=== PATIENT | female | born 1945 | race Caucasian/White ===

== ENCOUNTER → 2016-08-27 | Outpatient (CLI) | payer MEDICARE, MEDICAID | LOC: OD 10:26 | PROVIDERS: ATTEND Specialist | DX: C22.0 Liver cell carcinoma (principal); C25.0 Malignant neoplasm of head of pancreas; R78.0 Finding of alcohol in blood; R97.8 Other abnormal tumor markers | CPT/HCPCS: 36415; 82105; 82378; 86301 ==

== ENCOUNTER 2016-09-04 07:43 | Inpatient (IN) | payer MEDICARE, MEDICAID ==
[2016-09-04 08:15] LABS: ABSOLUTE LYMPHOCYTES (AUTO) 0.4 10^3/uL (0.5-4.7); ABSOLUTE MONOCYTES (AUTO) 0.3 10^3/uL (0.1-1.4); ABSOLUTE NEUT (AUTO) 4.2 10^3/uL (1.7-8.2); BASOPHILS % (AUTO) 0.4 % (0-2); HEMATOCRIT 38.5 % (36.0-47.0); HEMOGLOBIN 12.9 g/dL (12.0-15.5); HGB HCT DIFFERENCE 0.2; LYMPHOCYTES % (AUTO) 7.4 % (13-45); MEAN CORPUSCULAR HEMOGLOBIN 30.1 pg (27.0-33.4); MEAN CORPUSCULAR HGB CONC 33.5 g/dL (32.0-36.0); MEAN CORPUSCULAR VOLUME 90 fl (80-97); MONOCYTES % (AUTO) 5.7 % (3-13); RED BLOOD COUNT 4.29 10^6/uL (3.72-5.28); RED CELL DISTRIBUTION WIDTH 12.1 % (11.5-14.0); SEGMENTED NEUTROPHILS % (AUTO) 86.5 % (42-78); VENOUS BLOOD BASE EXCESS 4.3 mmol/L; VENOUS BLOOD HCO3 29.8 mmol/L (20-32); VENOUS BLOOD PCO2 47.7 mmHg (35-63); VENOUS BLOOD PH 7.41 (7.30-7.42); WHITE BLOOD COUNT 4.8 10^3/uL (4.0-10.5)
[2016-09-04 08:26] LABS: PROTHROMBIN TIME 12.3 SEC (11.4-15.4)
--- NOTE | 2016-09-04 08:31 | ER Document Report ---
ED Respiratory Problem - General Time seen by provider: 08:30 Mode of Arrival: Medic Information source: Patient TRAVEL OUTSIDE OF THE [place] IN LAST 30 DAYS: No - HPI At home treatment: Oxygen EMS treatments: Oxygen Associated symptoms: Congestion, Cough, Fever <ABBIE HOLT - Last Filed: 09/04/16 09:50> <SEBASTIANMISAEL - Last Filed: 09/04/16 14:48> - General Chief Complaint: Shortness Of Breath Stated Complaint: SHORTNESS OF BREATH Notes: Patient is a 70 year old female with a history of COPD, presenting to the emergency department with complaints of difficulty breathing, nausea, and cough. Patient has had some weakness and has felt short of breath. Patient has been feeling ill for the past 2 days. Patient has been short of breath for 3 hours this morning when she woke up. Patient has recently been exposed to the flu by a family member. Patient states she did receive the flu vaccination this year. Patient is on 2 L of O2 at home. Patient sees Dr. Padron as her PCP. Patient states she had a fever on Saturday and this morning she had a chills and a fever. Patient also complains of some slight chest pain that she describes as "stabbing." Patient states the pain only lasted for a few minutes and it was happening when she was breathing hard. Patient is at 93 oxygen saturation with O2 at time of exam. (ABBIE HOLT) - Related Data Allergies/Adverse Reactions: moxifloxacin [From Avelox] Allergy (Verified 09/04/16 08:20) Past Medical History - General Information source: Patient - Social History Smoking Status: Former Smoker - quit in January Cigarette use (# per day): No Chew tobacco use (# tins/day): No Frequency of alcohol use: None Drug Abuse: None Family History: None - Past Medical History Cardiac Medical History: Reports: Hx Hypercholesterolemia, Hx Hypertension Pulmonary Medical History: Reports: Hx COPD Past Surgical History: Reports: Hx Hysterectomy - Immunizations History of Influenza Vaccine for 04/2016 - 09/2016 Season: Yes <ABBIE HOLT - Last Filed: 09/04/16 09:50> Review of Systems - Review of Systems Constitutional: No symptoms reported EENT: No symptoms reported Cardiovascular: See HPI, Chest pain Respiratory: See HPI, Cough, Short of breath, Sputum, Wheezing Gastrointestinal: No symptoms reported Genitourinary: No symptoms reported Female Genitourinary: No symptoms reported Musculoskeletal: No symptoms reported Skin: No symptoms reported Hematologic/Lymphatic: No symptoms reported Neurological/Psychological: No symptoms reported -: Yes All other systems reviewed and negative <ABBEI HOLT - Last Filed: 09/04/16 09:50> Physical Exam - Vital signs Interpretation: Tachycardic - upon arrival - General General appearance: Appears well, Alert In distress: Mild - HEENT Head: Normocephalic, Atraumatic Eyes: Normal Pupils: PERRL Mucous membranes: Moist - Respiratory Respiratory status: Other - slight dyspnea Chest status: Nontender Breath sounds: Nonproductive cough, Rhonchi, Wheezing Chest palpation: Normal - Cardiovascular Rhythm: Regular Heart sounds: Normal auscultation Murmur: No - Abdominal Inspection: Normal Distension: No distension Bowel sounds: Normal Tenderness: Nontender Organomegaly: No organomegaly - Back Back: Normal, Nontender - Extremities General upper extremity: Normal inspection, Normal ROM, Normal strength General lower extremity: Normal inspection, Normal ROM, Normal strength - Neurological Neuro grossly intact: Yes Cognition: Normal Orientation: AAOx4 Mandy Coma Scale Eye Opening: Spontaneous Mineral Coma Scale Verbal: Oriented Mineral Coma Scale Motor: Obeys Commands Mineral Coma Scale Total: 15 Speech: Normal - Psychological Associated symptoms: Normal affect, Normal mood - Skin Skin Temperature: Warm Skin Moisture: Dry Skin Color: Normal <ABBIE HOLT - Last Filed: 09/04/16 09:50> <MISAEL CORTES - Last Filed: 09/04/16 14:48> - Vital signs Vitals: Resp Pulse Ox 22 H 92 09/04/16 07:54 09/04/16 07:54 (ABBIE HOLT) (MISAEL CORTES) Course - Laboratory Result Diagrams: 09/04/16 08:00 09/04/16 08:00 <ABBIE HOLT - Last Filed: 09/04/16 09:50> - Laboratory Result Diagrams: 09/04/16 08:00 09/04/16 08:00 - Diagnostic Test Radiology reviewed: Image reviewed, Reports reviewed - Chest x-ray shows COPD with interstitial prominence consistent with a viral illness - EKG Interpretation by Ca EKG shows normal: Sinus rhythm, [place], Intervals, QRS Complexes, ST-T Waves Rate: Tachycardia - 108 - Consults Dr. Kimbrough Time consulted: 14:45 Consulted provider: will come to ER <MISAEL CROTES - Last Filed: 09/04/16 14:48> - Re-evaluation Re-evalutation: 09/04/16 13:28 The patient states that really does feel much better. Her wheezes are considerably improved. I'm concerned that her oxygen saturation drops to 88 and 89% with a good waveform despite being on 3 L of oxygen. She states she normally is able to walk around the house at home without using oxygen. We will try to ambulate her with nasal O2 and see how her pulse oximetry does. 09/04/16 14:18 Patient's pulse ox stayed in the 86% range on oxygen while walking. She seemed to tolerate it well. I checked a d-dimer and it is elevated at 1.53 The patient's lungs were much clearer after the breathing treatments, and she reports it was easier to breathe. Despite this, her pulse oximetry readings are lower now than when she first came in. We will get a CTA chest to exclude pulmonary embolus as a contributing cause to her hypoxemia. 09/04/16 14:34 The CTA chest does not show any pulmonary emboli. It shows only COPD and atherosclerosis. There are no infiltrates. 09/04/16 14:42 At this time the patient is oxygenating much better at 93%, however she is a little tachypneic and does have some suprasternal retracting. I am concerned about discharging her home due to her age, the clinical picture today, the underlying disease, and she does not have nebulizers at home. (MISAEL CORTES) - Vital Signs Vital signs: Temp Pulse Resp BP Pulse Ox 98.5 F 110 H 40 H 125/76 90 L 09/04/16 11:52 09/04/16 08:16 09/04/16 13:01 09/04/16 13:01 09/04/16 13:01 (ABBIE HOLT) (MISAEL CORTES) - Laboratory Laboratory results interpreted by me: 09/04/16 09/04/16 09/04/16 08:00 08:00 08:00 Plt Count 131 L Seg Neutrophils % 86.5 H Lymphocytes % 7.4 L Absolute Lymphocytes 0.4 L D-Dimer Sodium 136.7 L Potassium 2.9 L* Chloride 97 L Carbon Dioxide 33 H Glucose 139 H Creatine Kinase 301 H Total Protein 5.9 L Albumin 3.2 L Urine Protein Urine Ketones Urine Blood Ur Leukocyte Esterase 09/04/16 09/04/16 08:00 09:15 Plt Count Seg Neutrophils % Lymphocytes % Absolute Lymphocytes D-Dimer 1.53 H Sodium Potassium Chloride Carbon Dioxide Glucose Creatine Kinase Total Protein Albumin Urine Protein 30 H Urine Ketones 20 H Urine Blood SMALL H Ur Leukocyte Esterase SMALL H (ABBIE HOLT) (MISAEL CORTES) Discharge <ABBIE HLOT - Last Filed: 09/04/16 09:50> - Discharge Admitting Provider: Hospitalist Unit Admitted: [facility] <MISAEL CORTES - Last Filed: 09/04/16 14:48> - Discharge Clinical Impression: Acute exacerbation of chronic obstructive pulmonary disease (COPD), Hypoxemia, Hypokalemia Condition: Stable Disposition: ADMITTED INPATIENT Referrals: DANILO UNDERWOOD, [facility] [Primary Care Provider] - Follow up as needed Scribe Attestation: 09/04/16 14:48 I personally performed the services described in the documentation, reviewed and edited the documentation which was dictated to the scribe in my presence, and it accurately records my words and actions. (MISAEL CORTES) Scribe Documentation - Scribe Written by Scribmelissa:: Abbie Holt 09/04/16 9:40 acting as scribe for :: Sebastian <ABBIE HOLT - Last Filed: 09/04/16 09:50>
[2016-09-04] MEDS ORDERED: PREDNISONE 20 MG TABLET PO ONE (08:33)
[2016-09-04] MEDS ORDERED: IPRATROPIUM/ALBUTEROL 0.5-2.5 MG/3 ML AMPUL NEB ONE ×2 (08:33→14:43)
[2016-09-04 08:34] LABS: ALANINE AMINOTRANSFERASE 29 U/L (9-52); ALBUMIN 3.2 g/dL (3.5-5.0); ALKALINE PHOSPHATASE 50 U/L (38-126); ANION GAP 7 (5-19); ASPARTATE AMINO TRANSFERASE 33 U/L (14-36); BILIRUBIN,TOTAL 0.4 mg/dL (0.2-1.3); BLOOD UREA NITROGEN 12 mg/dL (7-20); CALCIUM 8.6 mg/dL (8.4-10.2); CARBON DIOXIDE 33 mmol/L (22-30); CHLORIDE 97 mmol/L (98-107); CREATININE RESULT 0.63 mg/dL (0.52-1.25); GLUCOSE 139 mg/dL (75-110); SODIUM 136.7 mmol/L (137-145); TOTAL PROTEIN 5.9 g/dL (6.3-8.2)
[2016-09-04 08:36] LABS: POTASSIUM 2.9 mmol/L (3.6-5.0)
[2016-09-04] MEDS ORDERED: POTASSIUM CHLORIDE 10 MEQ TABLET.SA PO ONE (08:37)
[2016-09-04 08:38] LABS: ADD ON TESTING BLD IN LAB ACKNOWLEDGE
[2016-09-04 08:49] LABS: CREATINE KINASE 301 U/L (30-135)
[2016-09-04 09:03] LABS: TROPONIN I < 0.012 ng/mL
[2016-09-04 09:41] LABS: APPEARANCE,URINE SLIGHTLY-CLOUDY; BILIRUBIN,URINE NEGATIVE (NEGATIVE); GLUCOSE, URINE NEGATIVE (NEGATIVE); KETONES,URINE 20 mg/dL (NEGATIVE); LEUKOCYTE ESTERASE,URINE SMALL (NEGATIVE); NITRITE,URINE NEGATIVE (NEGATIVE); PROTEIN,URINE 30 mg/dL (NEGATIVE); URINE SPECIFIC GRAVITY 1.013; UROBILINOGEN,URINE NEGATIVE mg/dL (<2.0)
[2016-09-04] MEDS ORDERED: ALBUTEROL SULFATE 0.083% NEB 2.5 MG/3 ML AMPUL NEB ONE ×2 (10:29→11:09)
--- NOTE | 2016-09-04 12:02 | EKG REPORT ---
SEVERITY:- OTHERWISE NORMAL ECG - ARTIFACTS SINUS TACHYCARDIA : Confirmed by: Jami Schwartz MD 04-Sep-2016 12:00:33
[2016-09-04] MEDS ORDERED: ALBUTEROL SULFATE 0.083% NEB 2.5 MG/3 ML AMPUL NEB PRN (16:44)
[2016-09-04] MEDS ORDERED: HYDRALAZINE HCL INJ/PF 20 MG/1 ML SDV IV PRN (16:45)
[2016-09-04] MEDS ORDERED: ACETAMINOPHEN 325 MG TABLET PO PRN (16:46)
--- NOTE | 2016-09-04 16:55 | PDOC H&P ---
History of Present Illness Admission Date/PCP: 09/04/16 15:11 Dr. Loyd Padron Patient complains of: Shortness of breath History of Present Illness: MELODY HAIRSTON is a 70 year old female with past medical history of COPD that presents with three-day history of shortness of breath, 1 day history of feeling feverish. Patient has chronic home oxygen dependent secondary to COPD. She is followed by Dr. Bullard pulmonary medicine. She has been exposed to influenza by her granddaughter, but has tested influenza negative in the emergency department. CTA of the chest in the emergency department showed findings consistent with COPD but no acute process. Past Medical History Cardiac Medical History: Reports: Hyperlipidema, Hypertension Denies: Myocardial Infarction Pulmonary Medical History: Reports: Chronic Obstructive Pulmonary Disease (COPD) Musculoskeltal Medical History: Denies: Gout Past Surgical History Past Surgical History: Reports: Hysterectomy Social History Information Source: Patient Smoking Status: Former Smoker - quit in January Hx Recreational Drug Use: No Hx Prescription Drug Abuse: No - Advance Directive Resuscitation Status: Full Code Family History Family History: None Parental Family History Reviewed: Yes Children Family History Reviewed: Yes Sibling(s) Family History Reviewed.: Yes Medication/Allergy Home Medications: Cephalexin Monohydrate [Keflex 250 Mg Capsule] 250 mg PO QID #20 capsule Home Oxygen 3 l IH CONTINUOUS PRN #99 10/11/15 Allergies/Adverse Reactions: moxifloxacin [From Avelox] Allergy (Verified 09/04/16 08:20) Review of Systems Constitutional: PRESENT: fever(s). ABSENT: chills, headache(s), weight gain, weight loss Eyes: ABSENT: visual disturbances Ears: ABSENT: hearing changes Cardiovascular: ABSENT: chest pain, dyspnea on exertion, edema, orthropnea, palpitations Respiratory: PRESENT: cough, dyspnea. ABSENT: hemoptysis Gastrointestinal: ABSENT: abdominal pain, constipation, diarrhea, hematemesis, hematochezia, nausea, vomiting Genitourinary: ABSENT: dysuria, hematuria Musculoskeletal: ABSENT: joint swelling Integumentary: ABSENT: rash, wounds Neurological: ABSENT: abnormal gait, abnormal speech, confusion, dizziness, focal weakness, syncope Psychiatric: ABSENT: anxiety, depression, homidical ideation, suicidal ideation Endocrine: ABSENT: cold intolerance, heat intolerance, polydipsia, polyuria Hematologic/Lymphatic: ABSENT: easy bleeding, easy bruising Physical Exam Vital Signs: Temp Pulse Resp BP Pulse Ox 98.5 F 110 H 40 H 125/76 90 L 09/04/16 11:52 09/04/16 08:16 09/04/16 13:01 09/04/16 13:01 09/04/16 13:01 PHYSICAL EXAM: GENERAL: Appears well, no acute distress HEENT: Normocephalic, no scleral icterus, conjunctiva clear, EOEM intact, PERRLA , moist mucous membranes NECK: trachea midline, no thyromegally RESPIRATORY: Bilateral wheezes, diminished air excursion CARDIAC: Regular rate and rhythm, no murmur/abhijeet/rub ABDOMEN: Soft, no distension, no tenderness, no guarding, normal bowel sounds, negative West sign RECTAL: deferred : deferred EXTREMITIES: No edema, cyanosis, clubbing MUSCULOSKELETAL: No joint swelling or deformity VASCULAR: normal peripheral pulses NEUROLOGIC: Alert, oriented to person/place/time, normal speech, cranial nerves grossly intact, 5/5 strength in all extremities, tactile sensation intact in all extremities SKIN: No rash, no wounds, no worrisome skin lesions PSYCHIATRIC: Normal mood, normal affect Results Laboratory Results: Labs- All tests 24 hr 09/04/16 09/04/16 09/04/16 08:00 08:00 08:00 WBC 4.8 RBC 4.29 Hgb 12.9 Hct 38.5 MCV 90 MCH 30.1 MCHC 33.5 RDW 12.1 Plt Count 131 L Seg Neutrophils % 86.5 H Lymphocytes % 7.4 L Monocytes % 5.7 Eosinophils % 0.0 Basophils % 0.4 Absolute Neutrophils 4.2 Absolute Lymphocytes 0.4 L Absolute Monocytes 0.3 Absolute Eosinophils 0.0 Absolute Basophils 0.0 PT 12.3 INR 0.89 D-Dimer VBG pH VBG pCO2 VBG HCO3 VBG Base Excess Sodium 136.7 L Potassium 2.9 L* Chloride 97 L Carbon Dioxide 33 H Anion Gap 7 BUN 12 Creatinine 0.63 Est GFR ( Amer) > 60 Est GFR (Non-Af Amer) > 60 Glucose 139 H Lactic Acid Calcium 8.6 Total Bilirubin 0.4 Direct Bilirubin 0.0 AST 33 ALT 29 Alkaline Phosphatase 50 Creatine Kinase CK-MB (CK-2) Troponin I Total Protein 5.9 L Albumin 3.2 L Urine Color Urine Appearance Urine pH Ur Specific [place] Urine Protein Urine Glucose (UA) Urine Ketones Urine Blood Urine Nitrite Urine Bilirubin Urine Urobilinogen Ur Leukocyte Esterase Urine WBC (Auto) Urine RBC (Auto) U Hyaline Cast (Auto) Urine Bacteria (Auto) Squamous Epi Cells Auto U Non-Squamous Epis Auto Urine Mucus (Auto) Urine Ascorbic Acid Influenza A (Rapid) Influenza B (Rapid) 09/04/16 09/04/16 09/04/16 08:00 08:00 08:00 WBC RBC Hgb Hct MCV MCH MCHC RDW Plt Count Seg Neutrophils % Lymphocytes % Monocytes % Eosinophils % Basophils % Absolute Neutrophils Absolute Lymphocytes Absolute Monocytes Absolute Eosinophils Absolute Basophils PT INR D-Dimer VBG pH 7.41 VBG pCO2 47.7 VBG HCO3 29.8 VBG Base Excess 4.3 Sodium Potassium Chloride Carbon Dioxide Anion Gap BUN Creatinine Est GFR ( Amer) Est GFR (Non-Af Amer) Glucose Lactic Acid 0.9 Calcium Total Bilirubin Direct Bilirubin AST ALT Alkaline Phosphatase Creatine Kinase 301 H CK-MB (CK-2) Troponin I Total Protein Albumin Urine Color Urine Appearance Urine pH Ur Specific [place] Urine Protein Urine Glucose (UA) Urine Ketones Urine Blood Urine Nitrite Urine Bilirubin Urine Urobilinogen Ur Leukocyte Esterase Urine WBC (Auto) Urine RBC (Auto) U Hyaline Cast (Auto) Urine Bacteria (Auto) Squamous Epi Cells Auto U Non-Squamous Epis Auto Urine Mucus (Auto) Urine Ascorbic Acid Influenza A (Rapid) Influenza B (Rapid) 09/04/16 09/04/16 09/04/16 08:00 08:00 09:15 WBC RBC Hgb Hct MCV MCH MCHC RDW Plt Count Seg Neutrophils % Lymphocytes % Monocytes % Eosinophils % Basophils % Absolute Neutrophils Absolute Lymphocytes Absolute Monocytes Absolute Eosinophils Absolute Basophils PT INR D-Dimer 1.53 H VBG pH VBG pCO2 VBG HCO3 VBG Base Excess Sodium Potassium Chloride Carbon Dioxide Anion Gap BUN Creatinine Est GFR ( Amer) Est GFR (Non-Af Amer) Glucose Lactic Acid Calcium Total Bilirubin Direct Bilirubin AST ALT Alkaline Phosphatase Creatine Kinase CK-MB (CK-2) 1.90 Troponin I < 0.012 Total Protein Albumin Urine Color YELLOW Urine Appearance SLIGHTLY-CLOUDY Urine pH 6.0 Ur Specific [place] 1.013 Urine Protein 30 H Urine Glucose (UA) NEGATIVE Urine Ketones 20 H Urine Blood SMALL H Urine Nitrite NEGATIVE Urine Bilirubin NEGATIVE Urine Urobilinogen NEGATIVE Ur Leukocyte Esterase SMALL H Urine WBC (Auto) 4 Urine RBC (Auto) 7 U Hyaline Cast (Auto) 13 Urine Bacteria (Auto) 1+ Squamous Epi Cells Auto 6 U Non-Squamous Epis Auto 1 Urine Mucus (Auto) RARE Urine Ascorbic Acid NEGATIVE Influenza A (Rapid) Influenza B (Rapid) 09/04/16 09:40 WBC RBC Hgb Hct MCV MCH MCHC RDW Plt Count Seg Neutrophils % Lymphocytes % Monocytes % Eosinophils % Basophils % Absolute Neutrophils Absolute Lymphocytes Absolute Monocytes Absolute Eosinophils Absolute Basophils PT INR D-Dimer VBG pH VBG pCO2 VBG HCO3 VBG Base Excess Sodium Potassium Chloride Carbon Dioxide Anion Gap BUN Creatinine Est GFR ( Amer) Est GFR (Non-Af Amer) Glucose Lactic Acid Calcium Total Bilirubin Direct Bilirubin AST ALT Alkaline Phosphatase Creatine Kinase CK-MB (CK-2) Troponin I Total Protein Albumin Urine Color Urine Appearance Urine pH Ur Specific [place] Urine Protein Urine Glucose (UA) Urine Ketones Urine Blood Urine Nitrite Urine Bilirubin Urine Urobilinogen Ur Leukocyte Esterase Urine WBC (Auto) Urine RBC (Auto) U Hyaline Cast (Auto) Urine Bacteria (Auto) Squamous Epi Cells Auto U Non-Squamous Epis Auto Urine Mucus (Auto) Urine Ascorbic Acid Influenza A (Rapid) NEGATIVE Influenza B (Rapid) NEGATIVE Impressions: Chest X-Ray 09/04/16 07:45 IMPRESSION: Possible COPD. Prominence of the interstitium which could be secondary to underlying a viral illness, edema, and/or chronic scarring. No focal infiltrates Chest/Abdomen CTA 09/04/16 13:52 IMPRESSION: 1. No evidence of pulmonary embolus or acute thoracic abnormality. 2. Findings include COPD, atherosclerosis. Assessment & Plan - Diagnosis (1) Acute on chronic respiratory failure with hypoxemia Is this a current diagnosis for this admission?: YesPlan: Patient is chronic home oxygen dependent on 2 L nasal cannula. Continue oxygen supplementation. (2) Acute exacerbation of chronic obstructive pulmonary disease (COPD) Is this a current diagnosis for this admission?: YesPlan: Continue prednisone initiated in the emergency department. Start doxycycline 100 mg twice daily. Scheduled and when necessary nebulizer treatments. (3) Hypertension Is this a current diagnosis for this admission?: YesPlan: Discontinue hydrochlorothiazide secondary to hypokalemia. When necessary IV hydralazine. (4) Hypokalemia Is this a current diagnosis for this admission?: YesPlan: Replace potassium. Discontinue hydrochlorothiazide. - Time Time Spent: Greater than 70 Minutes Anticipated discharge: Home Within: within 48 hours
[2016-09-04] MEDS ORDERED: ENOXAPARIN SODIUM INJ 40 MG/0.4 ML DISP.SYRIN SUBCUT ONE (19:00)
[2016-09-04] MEDS: DOXYCYCLINE HYCLATE 100 MG TABLET PO SCH (19:30)
[2016-09-04] MEDS: GUAIFENESIN 600 MG TABLET.SA PO SCH (19:30)
[2016-09-04] MEDS: ALBUTEROL SULFATE 0.083% NEB 2.5 MG/3 ML AMPUL NEB SCH (20:13)
[2016-09-04 20:56] LABS: VENOUS BLOOD PCO2 52.3 mmHg (35-63); VENOUS BLOOD PH 7.42 (7.30-7.42)
[2016-09-04 21:13] LABS: ANION GAP 6 (5-19); BLOOD UREA NITROGEN 22 mg/dL (7-20); CALCIUM 9.4 mg/dL (8.4-10.2); CARBON DIOXIDE 32 mmol/L (22-30); CHLORIDE 95 mmol/L (98-107); CREATINE KINASE 410 U/L (30-135); CREATININE RESULT 0.71 mg/dL (0.52-1.25); GLUCOSE 134 mg/dL (75-110); POTASSIUM 3.7 mmol/L (3.6-5.0); SODIUM 133.3 mmol/L (137-145)
[2016-09-04 21:22] LABS: CREATINE KINASE MB 3.17 ng/mL (<4.55)
[2016-09-04 21:24] LABS: TROPONIN I < 0.012 ng/mL
[2016-09-04] MEDS ORDERED: POTASSIUM CHLORIDE 20 MEQ/15 ML UDCUP PO ONE (22:00)
--- NOTE | 2016-09-04 22:03 | EKG REPORT ---
SEVERITY:- ABNORMAL ECG - SINUS TACHYCARDIA MULTIPLE VENTRICULAR PREMATURE COMPLEXES : Confirmed by: Jami Schwartz MD 04-Sep-2016 22:01:59
[2016-09-05 01:19] LABS: VENOUS BLOOD BASE EXCESS 1.8 mmol/L; VENOUS BLOOD HCO3 27.7 mmol/L (20-32); VENOUS BLOOD PCO2 48.5 mmHg (35-63); VENOUS BLOOD PH 7.37 (7.30-7.42)
[2016-09-05 02:02] LABS: FREE T3 2.53 pg/mL (2.77-5.27)
[2016-09-05 03:19] LABS: HEMATOCRIT 36.4 % (36.0-47.0); HEMOGLOBIN 12.2 g/dL (12.0-15.5); HGB HCT DIFFERENCE 0.2; MEAN CORPUSCULAR HEMOGLOBIN 30.1 pg (27.0-33.4); MEAN CORPUSCULAR HGB CONC 33.5 g/dL (32.0-36.0); MEAN CORPUSCULAR VOLUME 90 fl (80-97); RED BLOOD COUNT 4.06 10^6/uL (3.72-5.28); RED CELL DISTRIBUTION WIDTH 12.2 % (11.5-14.0); WHITE BLOOD COUNT 5.6 10^3/uL (4.0-10.5)
[2016-09-05 03:31] LABS: ANION GAP 6 (5-19); BLOOD UREA NITROGEN 18 mg/dL (7-20); CALCIUM 9.4 mg/dL (8.4-10.2); CARBON DIOXIDE 33 mmol/L (22-30); CHLORIDE 97 mmol/L (98-107); CREATININE RESULT 0.65 mg/dL (0.52-1.25); Direct HDL 56 mg/dL (>40); GLUCOSE 99 mg/dL (75-110); POTASSIUM 3.8 mmol/L (3.6-5.0); SODIUM 135.9 mmol/L (137-145); TRIGLYCERIDES 100 mg/dL (<150)
[2016-09-05 03:42] LABS: DIRECT LDL 63 mg/dL (<100)
[2016-09-05] MEDS: DOXYCYCLINE HYCLATE 100 MG TABLET PO SCH ×2 (05:57→17:35)
[2016-09-05] MEDS: GUAIFENESIN 600 MG TABLET.SA PO SCH ×2 (05:58→17:35)
[2016-09-05] MEDS ORDERED: ENOXAPARIN SODIUM INJ 40 MG/0.4 ML DISP.SYRIN SUBCUT SCH (08:00)
[2016-09-05] MEDS: ALBUTEROL SULFATE 0.083% NEB 2.5 MG/3 ML AMPUL NEB SCH ×3 (08:12→20:25)
[2016-09-05] MEDS ORDERED: PREDNISONE 20 MG TABLET PO SCH (10:00)
[2016-09-05] MEDS ORDERED: HYDROCODONE BIT/HOMATROPINE SYRUP 5 ML UDCUP PO PRN (15:14)
[2016-09-05] MEDS ORDERED: METHYLPREDNISOLONE INJ 40 MG/1 ML SDV IV SCH (15:15)
--- NOTE | 2016-09-05 15:22 | PDOC PROGRESS REPORT ---
Subjective Progress Note for:: 09/05/16 Subjective:: Patient's cough and shortness of breath has gotten worse and chest today. She was also noted to have brief run of SVT overnight. She has had multiple PVCs on telemetry monitoring. Patient denies fever, chills, headache, new focal weakness, chest pain, abdominal pain, nausea, vomiting, diarrhea, constipation. Physical Exam Vital Signs: Temp Pulse Resp BP Pulse Ox 98.3 F 93 21 H 124/65 92 09/05/16 11:48 09/05/16 14:18 09/05/16 14:18 09/05/16 11:48 09/05/16 11:48 Intake & Output 09/04/16 09/05/16 09/06/16 06:59 06:59 06:59 Intake Total 823 1516 Output Total 500 Balance 823 1016 Weight 57.2 kg GENERAL: No acute distress, tachypnea, pursed lip breathing HEENT: Conjunctiva clear, nonicteric, moist mucous membranes, no JVD, midline trachea RESPIRATORY: Bilateral inspiratory/expiratory wheezes, diminished air excursion CARDIAC: Regular rate and rhythm, no murmurs/gallops/rubs ABDOMEN: Soft, nondistended, nontender, positive bowel sounds, no rebound, no guarding EXTREMETIES: No edema, cyanosis, clubbing NEUROLOGIC: Alert, oriented to person/place/time, CN's grossly intact, no focal deficits SKIN: No rash, wounds PSYCH: Normal mood, normal affect Results Laboratory Results: 09/05/16 02:55 09/05/16 02:55 09/04/16 09/04/16 09/04/16 20:41 20:41 20:41 WBC RBC Hgb Hct MCV MCH MCHC RDW Plt Count VBG pH 7.42 VBG pCO2 52.3 VBG HCO3 33.0 H VBG Base Excess 7.0 Sodium 133.3 L Potassium 3.7 Chloride 95 L Carbon Dioxide 32 H Anion Gap 6 BUN 22 H Creatinine 0.71 Est GFR ( Amer) > 60 Est GFR (Non-Af Amer) > 60 Glucose 134 H Calcium 9.4 Magnesium 2.0 Triglycerides Cholesterol LDL Cholesterol Direct VLDL Cholesterol HDL Cholesterol TSH 0.28 L Free T4 Free T3 pg/mL 09/04/16 09/05/16 09/05/16 20:41 01:10 02:55 WBC 5.6 RBC 4.06 Hgb 12.2 Hct 36.4 MCV 90 MCH 30.1 MCHC 33.5 RDW 12.2 Plt Count 121 L VBG pH 7.37 VBG pCO2 48.5 VBG HCO3 27.7 VBG Base Excess 1.8 Sodium Potassium Chloride Carbon Dioxide Anion Gap BUN Creatinine Est GFR ( Amer) Est GFR (Non-Af Amer) Glucose Calcium Magnesium Triglycerides Cholesterol LDL Cholesterol Direct VLDL Cholesterol HDL Cholesterol TSH Free T4 1.08 Free T3 pg/mL 2.53 L 09/05/16 02:55 WBC RBC Hgb Hct MCV MCH MCHC RDW Plt Count VBG pH VBG pCO2 VBG HCO3 VBG Base Excess Sodium 135.9 L Potassium 3.8 Chloride 97 L Carbon Dioxide 33 H Anion Gap 6 BUN 18 Creatinine 0.65 Est GFR ( Amer) > 60 Est GFR (Non-Af Amer) > 60 Glucose 99 Calcium 9.4 Magnesium Triglycerides 100 Cholesterol 155.30 LDL Cholesterol Direct 63 VLDL Cholesterol 20.0 HDL Cholesterol 56 TSH Free T4 Free T3 pg/mL 09/04/16 09/04/16 09/05/16 20:41 20:41 02:55 Creatine Kinase 410 H CK-MB (CK-2) 3.17 Troponin I < 0.012 < 0.012 Impressions: Chest X-Ray 09/04/16 07:45 IMPRESSION: Possible COPD. Prominence of the interstitium which could be secondary to underlying a viral illness, edema, and/or chronic scarring. No focal infiltrates Chest/Abdomen CTA 09/04/16 13:52 IMPRESSION: 1. No evidence of pulmonary embolus or acute thoracic abnormality. 2. Findings include COPD, atherosclerosis. Assessment & Plan - Diagnosis (1) Acute on chronic respiratory failure with hypoxemia Is this a current diagnosis for this admission?: YesPlan: Patient is chronic home oxygen dependent on 2 L nasal cannula. Continue oxygen supplementation. (2) Acute exacerbation of chronic obstructive pulmonary disease (COPD) Is this a current diagnosis for this admission?: YesPlan: Discontinue prednisone. Start IV Solu-Medrol 80 mg every 8 hours. Continue nebulizer treatments. Resume home dose of Symbicort. Continue doxycycline. (3) Hypertension Is this a current diagnosis for this admission?: YesPlan: Discontinued hydrochlorothiazide secondary to hypokalemia. When necessary IV hydralazine. Consider adding beta kristin for this as well as frequent PVCs once bronchospasm improved. (4) Hypokalemia Is this a current diagnosis for this admission?: YesPlan: Replace potassium. Discontinued hydrochlorothiazide. (5) Urinary tract infection Is this a current diagnosis for this admission?: YesPlan: Continue doxycycline pending further culture. - Time Time Spent with patient: 35 or more minutes
[2016-09-05] MEDS: HYDROCODONE BIT/HOMATROPINE 5-1.5 MG TABLET PO PRN (17:34)
[2016-09-05] MEDS: ATORVASTATIN CALCIUM 10 MG TABLET PO SCH (22:28)
[2016-09-05] MEDS: METHYLPREDNISOLONE INJ 125 MG/2 ML SDV IV SCH (22:29)
[2016-09-05] MEDS: BUDESONIDE/FORMOTEROL 160-4.5 MCG 60 PUFF/6 GM MDI IH SCH (22:29)
[2016-09-06] MEDS: HYDROCODONE BIT/HOMATROPINE 5-1.5 MG TABLET PO PRN ×2 (04:30→13:57)
[2016-09-06 06:06] LABS: ABSOLUTE LYMPHOCYTES (AUTO) 0.6 10^3/uL (0.5-4.7); ABSOLUTE MONOCYTES (AUTO) 0.2 10^3/uL (0.1-1.4); ABSOLUTE NEUT (AUTO) 2.9 10^3/uL (1.7-8.2); BASOPHILS % (AUTO) 0.1 % (0-2); HEMATOCRIT 39.9 % (36.0-47.0); HEMOGLOBIN 13.4 g/dL (12.0-15.5); HGB HCT DIFFERENCE 0.3; LYMPHOCYTES % (AUTO) 15.9 % (13-45); MEAN CORPUSCULAR HEMOGLOBIN 30.3 pg (27.0-33.4); MEAN CORPUSCULAR HGB CONC 33.7 g/dL (32.0-36.0); MEAN CORPUSCULAR VOLUME 90 fl (80-97); MONOCYTES % (AUTO) 4.8 % (3-13); RED BLOOD COUNT 4.44 10^6/uL (3.72-5.28); SEGMENTED NEUTROPHILS % (AUTO) 79.2 % (42-78); WHITE BLOOD COUNT 3.7 10^3/uL (4.0-10.5)
[2016-09-06 06:22] LABS: ANION GAP 11 (5-19); BLOOD UREA NITROGEN 19 mg/dL (7-20); CALCIUM 9.9 mg/dL (8.4-10.2); CARBON DIOXIDE 32 mmol/L (22-30); CHLORIDE 97 mmol/L (98-107); CREATININE RESULT 0.57 mg/dL (0.52-1.25); GLUCOSE 125 mg/dL (75-110); POTASSIUM 4.5 mmol/L (3.6-5.0); SODIUM 140.2 mmol/L (137-145)
[2016-09-06] MEDS: DOXYCYCLINE HYCLATE 100 MG TABLET PO SCH ×2 (06:41→17:17)
[2016-09-06] MEDS: GUAIFENESIN 600 MG TABLET.SA PO SCH ×2 (06:41→17:16)
[2016-09-06] MEDS: METHYLPREDNISOLONE INJ 125 MG/2 ML SDV IV SCH ×3 (06:43→21:48)
[2016-09-06] MEDS: ALBUTEROL SULFATE 0.083% NEB 2.5 MG/3 ML AMPUL NEB SCH ×3 (08:31→20:07)
[2016-09-06] MEDS: BUDESONIDE/FORMOTEROL 160-4.5 MCG 60 PUFF/6 GM MDI IH SCH ×2 (09:44→21:48)
[2016-09-06] MEDS ORDERED: (PENDING PHARMACY ID) (Lovastatin [Lovastatin] 40 MG) PO SCH (10:00)
[2016-09-06] MEDS ORDERED: ONDANSETRON HCL INJ/PF 4 MG/2 ML SDV ONE (18:14)
--- NOTE | 2016-09-06 18:32 | PDOC PROGRESS REPORT ---
Subjective Progress Note for:: 09/06/16 Subjective:: Shortness of breath has improved markedly since yesterday. Patient's respiratory status is still not back to baseline. Patient denies fever, chills, headache, new focal weakness, chest pain, abdominal pain, nausea, vomiting, diarrhea, constipation. Physical Exam Vital Signs: Temp Pulse Resp BP Pulse Ox 97.6 F 95 19 147/72 H 92 09/06/16 15:32 09/06/16 15:32 09/06/16 15:32 09/06/16 15:32 09/06/16 15:32 Intake & Output 09/05/16 09/06/16 09/07/16 06:59 06:59 06:59 Intake Total 895 391 Output Total 750 0 Balance 145 391 Weight 56.9 kg GENERAL: No acute distress HEENT: Conjunctiva clear, nonicteric, moist mucous membranes, no JVD, midline trachea RESPIRATORY: Bilateral inspiratory/expiratory wheezes, good air excursion CARDIAC: Regular rate and rhythm, no murmurs/gallops/rubs ABDOMEN: Soft, nondistended, nontender, positive bowel sounds, no rebound, no guarding EXTREMETIES: No edema, cyanosis, clubbing NEUROLOGIC: Alert, oriented to person/place/time, CN's grossly intact, no focal deficits SKIN: No rash, wounds PSYCH: Normal mood, normal affect Results Laboratory Results: 09/06/16 05:34 09/06/16 05:34 09/06/16 09/06/16 05:34 05:34 WBC 3.7 L RBC 4.44 Hgb 13.4 Hct 39.9 MCV 90 MCH 30.3 MCHC 33.7 RDW 12.0 Plt Count 144 L Seg Neutrophils % 79.2 H Lymphocytes % 15.9 Monocytes % 4.8 Eosinophils % 0.0 Basophils % 0.1 Absolute Neutrophils 2.9 Absolute Lymphocytes 0.6 Absolute Monocytes 0.2 Absolute Eosinophils 0.0 Absolute Basophils 0.0 Sodium 140.2 Potassium 4.5 Chloride 97 L Carbon Dioxide 32 H Anion Gap 11 BUN 19 Creatinine 0.57 Est GFR ( Amer) > 60 Est GFR (Non-Af Amer) > 60 Glucose 125 H Calcium 9.9 Impressions: Chest X-Ray 09/04/16 07:45 IMPRESSION: Possible COPD. Prominence of the interstitium which could be secondary to underlying a viral illness, edema, and/or chronic scarring. No focal infiltrates Chest/Abdomen CTA 09/04/16 13:52 IMPRESSION: 1. No evidence of pulmonary embolus or acute thoracic abnormality. 2. Findings include COPD, atherosclerosis. Assessment & Plan - Diagnosis (1) Acute on chronic respiratory failure with hypoxemia Is this a current diagnosis for this admission?: YesPlan: Patient is chronic home oxygen dependent on 2 L nasal cannula. Continue oxygen supplementation. (2) Acute exacerbation of chronic obstructive pulmonary disease (COPD) Is this a current diagnosis for this admission?: YesPlan: Continue IV Solu-Medrol 80 mg every 8 hours. Continue nebulizer treatments, Symbicort. Continue doxycycline. (3) Hypertension Is this a current diagnosis for this admission?: YesPlan: Discontinued hydrochlorothiazide secondary to hypokalemia. When necessary IV hydralazine. Consider adding beta kristin for this as well as frequent PVCs once bronchospasm improved. (4) Hypokalemia Is this a current diagnosis for this admission?: YesPlan: Corrected. Discontinued hydrochlorothiazide. (5) Urinary tract infection Is this a current diagnosis for this admission?: YesPlan: Continue doxycycline pending further culture. - Time Time Spent with patient: 25-34 minutes
[2016-09-06] MEDS: ATORVASTATIN CALCIUM 10 MG TABLET PO SCH (21:47)
[2016-09-07] MEDS: DOXYCYCLINE HYCLATE 100 MG TABLET PO SCH ×2 (06:31→17:07)
[2016-09-07] MEDS: GUAIFENESIN 600 MG TABLET.SA PO SCH ×2 (06:31→17:07)
[2016-09-07] MEDS: METHYLPREDNISOLONE INJ 125 MG/2 ML SDV IV SCH ×3 (06:32→22:45)
[2016-09-07] MEDS: ALBUTEROL SULFATE 0.083% NEB 2.5 MG/3 ML AMPUL NEB SCH ×3 (08:14→20:17)
[2016-09-07] MEDS: BUDESONIDE/FORMOTEROL 160-4.5 MCG 60 PUFF/6 GM MDI IH SCH ×2 (09:57→22:14)
[2016-09-07] MEDS ORDERED: VANCOMYCIN HCL INJ 1000 MG VIAL IV ONE (19:01)
--- NOTE | 2016-09-07 19:01 | PDOC PROGRESS REPORT ---
Subjective Progress Note for:: 09/07/16 Subjective:: Patient has a dry cough productive of minimal clear phlegm. She is on doxycycline for a COPD exacerbation. The laboratory has reported one out of 4 blood cultures of 09/04/2016 positive for Staphylococcus capitis. The patient denies fevers sweats or chills. She denies dizziness or lightheadedness. Physical Exam Vital Signs: Temp Pulse Resp BP Pulse Ox 98.2 F 110 H 18 161/91 H 92 09/07/16 15:26 09/07/16 15:26 09/07/16 15:26 09/07/16 15:26 09/07/16 15:26 Intake & Output 09/06/16 09/07/16 09/08/16 06:59 06:59 06:59 Intake Total 895 1313 1387 Output Total 750 500 Balance 986 754 4179 Weight 56.9 kg 57.6 kg Additional comments: GENERAL: No acute distress HEENT: Conjunctiva clear, nonicteric, moist mucous membranes, no JVD, midline trachea RESPIRATORY: Bilateral inspiratory/expiratory wheezes, good air excursion CARDIAC: Regular rate and rhythm, no murmurs/gallops/rubs ABDOMEN: Soft, nondistended, nontender, positive bowel sounds, no rebound, no guarding EXTREMETIES: No edema, cyanosis, clubbing NEUROLOGIC: Alert, oriented to person/place/time, CN's grossly intact, no focal deficits SKIN: No rash, wounds PSYCH: Normal mood, normal affect Results Laboratory Results: 09/06/16 05:34 09/06/16 05:34 Impressions: Chest X-Ray 09/04/16 07:45 IMPRESSION: Possible COPD. Prominence of the interstitium which could be secondary to underlying a viral illness, edema, and/or chronic scarring. No focal infiltrates Chest/Abdomen CTA 09/04/16 13:52 IMPRESSION: 1. No evidence of pulmonary embolus or acute thoracic abnormality. 2. Findings include COPD, atherosclerosis. Assessment & Plan - Diagnosis (1) Bacteremia due to coagulase-negative Staphylococcus Plan: One out of 4 blood cultures of 09/04/2016 were positive for Staphylococcus capitis. It is sensitive to doxycycline vancomycin and levofloxacin. She is allergic to moxifloxacin. We will continue the doxycycline and add intravenous vancomycin, pharmacy to dose (2) Acute exacerbation of chronic obstructive pulmonary disease (COPD) Is this a current diagnosis for this admission?: YesPlan: Continue her current medications except to wean Solu-Medrol to 40 mg every 12 hours. (3) Acute on chronic respiratory failure with hypoxemia Is this a current diagnosis for this admission?: YesPlan: The patient is on chronic home O2 supplementation at 2 L per nasal cannula. Will continue same (4) Hypertension Is this a current diagnosis for this admission?: Yes (5) Hypokalemia Is this a current diagnosis for this admission?: YesPlan: Check follow-up BMP. (6) Urinary tract infection Is this a current diagnosis for this admission?: YesPlan: Await culture results. - Time Time Spent with patient: 25-34 minutes
[2016-09-07] MEDS: BENZONATATE 100 MG CAPSULE PO PRN (20:19)
[2016-09-07] MEDS: ATORVASTATIN CALCIUM 10 MG TABLET PO SCH (22:14)
[2016-09-07] MEDS: METHYLPREDNISOLONE INJ 40 MG/1 ML SDV IV SCH (22:45)
[2016-09-08] MEDS: GUAIFENESIN 600 MG TABLET.SA PO SCH ×2 (05:58→17:58)
[2016-09-08] MEDS: BENZONATATE 100 MG CAPSULE PO PRN ×2 (05:58→17:59)
[2016-09-08] MEDS: DOXYCYCLINE HYCLATE 100 MG TABLET PO SCH ×2 (05:58→17:58)
[2016-09-08] MEDS: METHYLPREDNISOLONE INJ 125 MG/2 ML SDV IV SCH (06:00)
[2016-09-08 07:25] LABS: ABSOLUTE LYMPHOCYTES (AUTO) 1.3 10^3/uL (0.5-4.7); ABSOLUTE MONOCYTES (AUTO) 0.5 10^3/uL (0.1-1.4); ABSOLUTE NEUT (AUTO) 4.7 10^3/uL (1.7-8.2); BASOPHILS % (AUTO) 0.1 % (0-2); HEMATOCRIT 40.7 % (36.0-47.0); HEMOGLOBIN 13.7 g/dL (12.0-15.5); HGB HCT DIFFERENCE 0.4; LYMPHOCYTES % (AUTO) 20.3 % (13-45); MEAN CORPUSCULAR HEMOGLOBIN 30.2 pg (27.0-33.4); MEAN CORPUSCULAR HGB CONC 33.7 g/dL (32.0-36.0); MEAN CORPUSCULAR VOLUME 90 fl (80-97); MONOCYTES % (AUTO) 7.5 % (3-13); RED BLOOD COUNT 4.54 10^6/uL (3.72-5.28); RED CELL DISTRIBUTION WIDTH 12.4 % (11.5-14.0); SEGMENTED NEUTROPHILS % (AUTO) 72.1 % (42-78); WHITE BLOOD COUNT 6.5 10^3/uL (4.0-10.5)
[2016-09-08 07:44] LABS: ANION GAP 14 (5-19); BLOOD UREA NITROGEN 20 mg/dL (7-20); CALCIUM 9.7 mg/dL (8.4-10.2); CARBON DIOXIDE 30 mmol/L (22-30); CHLORIDE 95 mmol/L (98-107); CREATININE RESULT 0.54 mg/dL (0.52-1.25); GLUCOSE 128 mg/dL (75-110); POTASSIUM 4.2 mmol/L (3.6-5.0); SODIUM 138.9 mmol/L (137-145)
[2016-09-08] MEDS: ALBUTEROL SULFATE 0.083% NEB 2.5 MG/3 ML AMPUL NEB SCH ×3 (08:18→20:25)
[2016-09-08] MEDS: BUDESONIDE/FORMOTEROL 160-4.5 MCG 60 PUFF/6 GM MDI IH SCH ×2 (09:15→21:55)
[2016-09-08] MEDS: METHYLPREDNISOLONE INJ 40 MG/1 ML SDV IV SCH ×2 (09:15→21:54)
[2016-09-08] MEDS ORDERED: HYDROCHLOROTHIAZIDE 12.5 MG CAPSULE PO ONE (11:30)
--- NOTE | 2016-09-08 14:25 | PDOC PROGRESS REPORT ---
Subjective Progress Note for:: 09/08/16 Subjective:: Her cough is slightly better. It is less dry, more loose and effective. However the cough is still frequent and she is wheezy. Overall, she feels improved. One of 4 blood cultures grew Staphylococcus capitis. The other 3 have remained negative. This will be considered a contaminant and the ordered vancomycin has been discontinued. Physical Exam Vital Signs: Temp Pulse Resp BP Pulse Ox 97.8 F 84 16 145/70 H 96 09/08/16 11:29 09/08/16 14:05 09/08/16 14:05 09/08/16 11:29 09/08/16 14:05 Intake & Output 09/07/16 09/08/16 09/09/16 06:59 06:59 06:59 Intake Total 1313 1897 Output Total 500 600 Balance 813 1297 Weight 57.6 kg 56.2 kg Additional comments: GENERAL: No acute distress HEENT: Conjunctiva clear, nonicteric, moist mucous membranes, no JVD, midline trachea RESPIRATORY: Bilateral expiratory wheezes, good air movement CARDIAC: Regular rate and rhythm, no murmurs/gallops/rubs ABDOMEN: Soft, nondistended, nontender, positive bowel sounds, no rebound, no guarding EXTREMETIES: No edema, cyanosis, clubbing NEUROLOGIC: Alert, oriented to person/place/time, CN's grossly intact, no focal deficits SKIN: No rash, wounds PSYCH: Normal mood, normal affect Results Laboratory Results: 09/08/16 06:14 09/08/16 06:14 09/08/16 09/08/16 06:14 06:14 WBC 6.5 RBC 4.54 Hgb 13.7 Hct 40.7 MCV 90 MCH 30.2 MCHC 33.7 RDW 12.4 Plt Count 187 Seg Neutrophils % 72.1 Lymphocytes % 20.3 Monocytes % 7.5 Eosinophils % 0.0 Basophils % 0.1 Absolute Neutrophils 4.7 Absolute Lymphocytes 1.3 Absolute Monocytes 0.5 Absolute Eosinophils 0.0 Absolute Basophils 0.0 Sodium 138.9 Potassium 4.2 Chloride 95 L Carbon Dioxide 30 Anion Gap 14 BUN 20 Creatinine 0.54 Est GFR ( Amer) > 60 Est GFR (Non-Af Amer) > 60 Glucose 128 H Calcium 9.7 Impressions: Chest X-Ray 09/04/16 07:45 IMPRESSION: Possible COPD. Prominence of the interstitium which could be secondary to underlying a viral illness, edema, and/or chronic scarring. No focal infiltrates Chest/Abdomen CTA 09/04/16 13:52 IMPRESSION: 1. No evidence of pulmonary embolus or acute thoracic abnormality. 2. Findings include COPD, atherosclerosis. Assessment & Plan - Diagnosis (1) Acute exacerbation of chronic obstructive pulmonary disease (COPD) Is this a current diagnosis for this admission?: YesPlan: Continue oral doxycycline, Solu-Medrol, guaifenesin, and inhaled bronchodilators. (2) Acute on chronic respiratory failure with hypoxemia Is this a current diagnosis for this admission?: YesPlan: The patient uses home O2 at 2 L per nasal cannula. We'll continue same. (3) Hypertension Is this a current diagnosis for this admission?: YesPlan: Under satisfactory control. Will resume her hydrochlorothiazide at her request. (4) Hypokalemia Is this a current diagnosis for this admission?: YesPlan: Resolved. We will monitor now that she is back on her HCTZ. (5) Urinary tract infection Is this a current diagnosis for this admission?: YesPlan: Urine culture of 09/04/2016 shows 50-60,000 colonies of Escherichia coli, sensitive to the current doxycycline. - Time Time Spent with patient: 15-24 minutes
[2016-09-08] MEDS: ONDANSETRON HCL INJ/PF 4 MG/2 ML SDV IV PRN (18:14)
[2016-09-08] MEDS: ATORVASTATIN CALCIUM 10 MG TABLET PO SCH (21:54)
[2016-09-09] MEDS: DOXYCYCLINE HYCLATE 100 MG TABLET PO SCH (06:41)
[2016-09-09] MEDS: GUAIFENESIN 600 MG TABLET.SA PO SCH (06:41)
[2016-09-09] MEDS: BENZONATATE 100 MG CAPSULE PO PRN (06:43)
[2016-09-09] MEDS: ONDANSETRON HCL INJ/PF 4 MG/2 ML SDV IV PRN (07:47)
[2016-09-09] MEDS: ALBUTEROL SULFATE 0.083% NEB 2.5 MG/3 ML AMPUL NEB SCH (08:14)
[2016-09-09] MEDS ORDERED: HYDROCHLOROTHIAZIDE 12.5 MG CAPSULE PO SCH (10:00)
[2016-09-09] MEDS: METHYLPREDNISOLONE INJ 40 MG/1 ML SDV IV SCH (10:40)
[2016-09-09] MEDS: BUDESONIDE/FORMOTEROL 160-4.5 MCG 60 PUFF/6 GM MDI IH SCH (10:41)
--- NOTE | 2016-09-09 10:45 | PDOC DISCHARGE SUMMARY ---
General - Admit/Disc Date/PCP Admission Date/Primary Care Provider: 09/05/16 17:17 BEATA KELLY-Rylee Discharge Date: 09/09/16 - Discharge Diagnosis (1) Acute exacerbation of chronic obstructive pulmonary disease (COPD) Is this a current diagnosis for this admission?: YesSummary: This morning the patient states she is breathing much better and her cough is much more effective. She has generally improved with hospital Rx. Will discharge home on 1 more week of doxycycline, a Medrol Dosepak, and albuterol MDI. (2) Acute on chronic respiratory failure with hypoxemia Is this a current diagnosis for this admission?: YesSummary: The patient uses home O2 at 2 L per nasal cannula. We'll continue same. (3) Hypertension Is this a current diagnosis for this admission?: YesSummary: Blood pressure has been in good control. Continue current medications. (4) Hypokalemia Is this a current diagnosis for this admission?: YesSummary: Hypokalemia was corrected. (5) Urinary tract infection Is this a current diagnosis for this admission?: YesSummary: Urine culture of 09/04/2016 shows 50-60,000 colonies of Escherichia coli, sensitive to the current doxycycline. - Additional Information Resuscitation Status: Full Code Home Medications: Hydrochlorothiazide 12.5 mg PO DAILY 09/04/16 Lovastatin 40 mg PO DAILY 09/04/16 Albuterol Sulfate [Ventolin Hfa] 2 puff IH Q4HP PRN #0 hfa.aer.ad 09/09/16 Budesonide/Formoterol Fumarate [Symbicort HFA 160-4.5 mcg Inhaler 6 gm] 2 puff IH Q12 #0 inhaler 09/09/16 Doxycycline Hyclate [Vibramycin 100 mg Tablet] 100 mg PO Q12A #14 tablet Methylprednisolone [Medrol Dosepack (4 mg/Tab) 21 Tab/Dosepak] 4 mg PO ASDIR PRN #21 tab.ds.pk 09/09/16 Ondansetron HCl [Zofran 4 mg Tablet] 1 tab PO Q4H PRN #10 tablet 09/09/16 History of Present Illness Patient complains of: Cough, wheeze, SOB History of Present Illness: MELODY HAIRSTON is a 70 year old female with past medical history of COPD that presents with three-day history of shortness of breath, 1 day history of feeling feverish. Patient has chronic home oxygen dependent secondary to COPD. She is followed by Dr. Bullard pulmonary medicine. She has been exposed to influenza by her granddaughter, but has tested influenza negative in the emergency department. CTA of the chest in the emergency department showed findings consistent with COPD but no acute process. Hospital Course Hospital Course: The patient has severe oxygen-dependent COPD. She was admitted with an acute exacerbation. The chest CT was negative for an acute process. The patient should have received oral doxycycline, intravenous corticosteroid, nebulized bronchodilator, and supplemental oxygen. She steadily improved. Her air movement improved. Her cough became more effective. She felt much better at the time of discharge, though she still had a persistent wheezy cough and some nausea. She felt ready for discharge and will follow-up with either her primary care physician or her high court justice within 1-2 weeks. Physical Exam Vital Signs: Temp Pulse Resp BP Pulse Ox 97.8 F 89 14 139/75 H 96 09/09/16 07:28 09/09/16 08:14 09/09/16 08:14 09/09/16 07:28 09/09/16 08:14 Intake & Output 09/08/16 09/09/16 09/10/16 06:59 06:59 06:59 Intake Total 1897 1728 Output Total 600 900 Balance 1297 828 Weight 56.2 kg 56.4 kg Additional comments: GENERAL: No acute distress HEENT: Conjunctiva clear, nonicteric, moist mucous membranes, no JVD, midline trachea RESPIRATORY: Bilateral expiratory wheezes, good air movement, dry wheezy cough CARDIAC: Regular rate and rhythm, no murmurs/gallops/rubs ABDOMEN: Soft, nondistended, nontender, positive bowel sounds, no rebound, no guarding EXTREMETIES: No edema, cyanosis, clubbing NEUROLOGIC: Alert, oriented to person/place/time, CN's grossly intact, no focal deficits SKIN: No rash, wounds PSYCH: Normal mood, normal affect Results Laboratory Results: 09/08/16 06:14 09/08/16 06:14 Impressions: Chest X-Ray 09/04/16 07:45 IMPRESSION: Possible COPD. Prominence of the interstitium which could be secondary to underlying a viral illness, edema, and/or chronic scarring. No focal infiltrates Chest/Abdomen CTA 09/04/16 13:52 IMPRESSION: 1. No evidence of pulmonary embolus or acute thoracic abnormality. 2. Findings include COPD, atherosclerosis. Qualifiers PATEINT BEING DISCHARGED WITH ANY OF THE FOLLOWING DIAGNOSIS?: No
[2016-09-09 11:38] VITALS: BP 116/67
== END 2016-09-09 12:30 | disposition home or self-care (01) | DRG 190 ==
LOC: ER 07:43 → UNDOADMOB 15:11 → EH 15:11 → INTOOBSV 15:11 → 3W 16:46 → EH 17:43 → 3W 17:43 → OBSVTOIN 09-05 17:17
PROVIDERS: ADMIT Internal Medicine; ATTEND Internal Medicine
PROC: 3E0F73Z Introduction of Anti-inflammatory into Respiratory Tract, Via Natural or Artificial Opening (ICD-10-PCS; principal; 2016-09-04)
DX: J44.1 Chronic obstructive pulmonary disease with (acute) exacerbation (principal); J96.21 Acute and chronic respiratory failure with hypoxia; N39.0 Urinary tract infection, site not specified; I10 Essential (primary) hypertension; E87.6 Hypokalemia; E78.5 Hyperlipidemia, unspecified; B96.20 Unspecified Escherichia coli [E. coli] as the cause of diseases classified elsewhere; Z99.81 Dependence on supplemental oxygen; Z79.899 Other long term (current) drug therapy; Z90.710 Acquired absence of both cervix and uterus; Z87.891 Personal history of nicotine dependence; Z88.3 Allergy status to other anti-infective agents; Z79.2 Long term (current) use of antibiotics
CPT/HCPCS: 36415; 71020; 71275; 80048; 80053; 80061; 81001; 82550; 82553; 82803; 83605; 83735; 84439; 84443; 84481; 84484; 85025; 85027; 85379; 85610; 87040; 87077; 87086; 87088; 87186; 87804; 93005; 93010; 94640; 99285; G0378; J1650; J2405; J2920; J2930; J3490; J7512; J7620

== ENCOUNTER 2016-09-28 09:26 | Day surgery (SDC) | payer MEDICARE, MEDICAID ==
--- NOTE | 2016-09-14 10:16 | HISTORY AND PHYSICAL E ---
History and Physical NAME: MELODY HAIRSTON : 1945 AGE: 70Y ADMITTED: 09/28/2016 ROOM: CHIEF COMPLAINT: The patient was referred to us by Dr. Bullard. HISTORY OF PRESENT ILLNESS: She does have a question of a gastric mass versus liver mass. She does have constipation. The patient has post-anesthesia complaining of nausea/vomiting. PAST SURGICAL HISTORY: 1. She did have polyps in her oropharynx. 2. Partial hysterectomy. 3. Cataract. MEDICATIONS: The patient takes: 1. Nexium. 2. ProAir. 3. Spiriva. 4. Symbicort. 5. Hydrochlorothiazide. SOCIAL HISTORY: She quit smoking. Single. She does not smoke. She does not drink. FAMILY HISTORY: Father with accident. Mom with cerebral hemorrhage. REVIEW OF SYSTEMS: CARDIAC: Hypertension, high cholesterol. RESPIRATORY: Emphysema, COPD. GASTROINTESTINAL: Question liver mass and gastric mass. MUSCULOSKELETAL: Arthritis. PHYSICAL EXAMINATION: GENERAL: A 70-year-old female patient of Dr. Bullard. VITAL SIGNS: Blood pressure 140/90, pulse 80, respirations 18, temperature is 98. HEAD, EYES, EARS, NOSE, THROAT: Normal. NECK: Supple. CARDIOVASCULAR: Normal. LUNGS: Clear. ABDOMEN: Soft. NEUROLOGIC: Negative. CONCLUSION: Question gastric mass, question liver mass. PLAN: Upper scope. DICTATING PHYSICIAN: HÉCTOR LEE M.D. [id number] PHY#: [id number] ID: [id number] JOB#: [id number] ACCT: [id number] cc:SEN BULLARD M.D., MAHMOUD M.D. >
[2016-09-28] MEDS ORDERED: FENTANYL CITRATE INJ/PF 100 MCG/2 ML AMPUL ONE (10:08)
[2016-09-28] MEDS ORDERED: GLYCOPYRROLATE INJ 0.4 MG/2 ML VIAL ONE (10:08)
[2016-09-28] MEDS ORDERED: ONDANSETRON HCL INJ/PF 4 MG/2 ML SDV ONE (10:08)
[2016-09-28] MEDS ORDERED: NALOXONE HCL INJ/PF 0.4 MG/1 ML SDV ONE (10:08)
[2016-09-28] MEDS ORDERED: PROMETHAZINE HCL INJ 25 MG/1 ML VIAL ONE (10:08)
[2016-09-28] MEDS ORDERED: MIDAZOLAM 2 MG/2 ML INJ ONE (10:08)
[2016-09-28] MEDS ORDERED: EPINEPHRINE INJ 1 MG/10 ML DISP.SYRIN ONE (10:09)
[2016-09-28] MEDS ORDERED: FLUMAZENIL INJ 0.5 MG/5 ML VIAL IV ONE (10:09)
[2016-09-28 11:27] VITALS: BP 120/64
[2016-09-28] MEDS ORDERED: ACETAMINOPHEN 325 MG TABLET ONE (11:46)
[2016-09-28 11:52] LABS: ABSOLUTE BASOPHILS # (AUTO) 0.1 10^3/uL (0.0-0.2); ABSOLUTE EOSINOPHILS # (AUTO) 0.1 10^3/uL (0.0-0.6); ABSOLUTE LYMPHOCYTES (AUTO) 1.4 10^3/uL (0.5-4.7); ABSOLUTE MONOCYTES (AUTO) 0.3 10^3/uL (0.1-1.4); ABSOLUTE NEUT (AUTO) 4.1 10^3/uL (1.7-8.2); BASOPHILS % (AUTO) 0.9 % (0-2); EOSINOPHILS % (AUTO) 1.5 % (0-6); HEMATOCRIT 36.3 % (36.0-47.0); HEMOGLOBIN 11.9 g/dL (12.0-15.5); HGB HCT DIFFERENCE -0.6; MEAN CORPUSCULAR HEMOGLOBIN 29.7 pg (27.0-33.4); MEAN CORPUSCULAR HGB CONC 32.9 g/dL (32.0-36.0); MEAN CORPUSCULAR VOLUME 91 fl (80-97); MONOCYTES % (AUTO) 5.3 % (3-13); RED CELL DISTRIBUTION WIDTH 12.5 % (11.5-14.0); SEGMENTED NEUTROPHILS % (AUTO) 69.3 % (42-78); WHITE BLOOD COUNT 5.9 10^3/uL (4.0-10.5)
[2016-09-28 12:12] LABS: ALANINE AMINOTRANSFERASE 24 U/L (9-52); ALBUMIN 3.8 g/dL (3.5-5.0); ALKALINE PHOSPHATASE 61 U/L (38-126); ANION GAP 12 (5-19); ASPARTATE AMINO TRANSFERASE 19 U/L (14-36); BILIRUBIN,TOTAL 0.4 mg/dL (0.2-1.3); BLOOD UREA NITROGEN 16 mg/dL (7-20); CALCIUM 9.4 mg/dL (8.4-10.2); CARBON DIOXIDE 32 mmol/L (22-30); CHLORIDE 99 mmol/L (98-107); CREATININE RESULT 0.57 mg/dL (0.52-1.25); GLUCOSE 95 mg/dL (75-110); POTASSIUM 3.5 mmol/L (3.6-5.0); SODIUM 142.9 mmol/L (137-145); TOTAL PROTEIN 6.6 g/dL (6.3-8.2)
[2016-09-28 12:42] LABS: CARCINOEMBRYONIC ANTIGEN 0.5 ng/mL (<3.0)
--- NOTE | 2016-09-28 12:53 | DISCHARGE SUMMARY E ---
Discharge Summary NAME: MELODY HAIRSTON : 1945 AGE: 70Y ADMITTED: 09/28/2016 DISCHARGED: 09/28/2016 HISTORY: Patient, a 70-year-old female, presented with a possible mass, liver versus stomach. She does have history of COPD, hypertension, , reflux and nausea. SURGICAL HISTORY: Total abdominal hysterectomy. PROCEDURE: Underwent upper scope: Shows no ulcers; no malignancy. She has no mass in her stomach on endoscopy. She does have a hiatus hernia, mild esophagitis, gastritis, duodenitis. DISCHARGE PLAN: 1. CA-99, CEA, alpha-fetoprotein, Chem profile. 2. Consider colonoscopy. I thank you. DICTATING PHYSICIAN: HÉCTOR LEE M.D. [id number] PHY#: [id number] ID: [id number] JOB#: [id number] ACCT: [id number] cc:SEN MISHRA M.D., MAHMOUD M.D. >
--- NOTE | 2016-09-28 13:18 | OPERATIVE REPORT E ---
Operative Report NAME: MELODY HAIRSTON : 1945 AGE: 70Y DATE OF SURGERY: 09/28/2016 ROOM: PREOPERATIVE DIAGNOSES: 1. Mild reflux. 2. Question gastric mass. POSTOPERATIVE DIAGNOSIS: 1. Mild gastritis. 2. Small hiatus hernia. 3. Mild esophagitis. 4. Mild duodenitis. PROCEDURE: 1. Esophagoscopy 2. Gastroscopy. 3. Duodenoscopy. SURGEON: HÉCTOR LEE M.D. ANESTHESIA: Versed 2 and fentanyl 50. TISSUE REMOVED OR ALTERED: Gastric biopsy for H. pylori. DESCRIPTION OF PROCEDURE: Baby scope passed under guided vision. No difficulties. Esophagoscopy junction at 35 cm. Distal hiatus hernia 1-2 cm, sliding hiatus hernia with mild esophagitis. No stricture. No ulcers. Gastroscopy: Mild gastritis. Biopsy obtained for H. pylori. Duodenoscopy: Duodenum shows no ulcers. Mild duodenitis. Descending duodenum, mild duodenitis. CONCLUSION: No cancer. No ulcers. Hiatus hernia 2 cm. No stricture. Mild esophagitis. Mild gastritis. Mild duodenitis. PLAN: Awaiting biopsy results. Lab studies. Patient to see us in the office in the next few days. Consider colonoscopy if the patient has abnormalities in her CEA or if she does not have colonoscopy yet. DICTATING PHYSICIAN: HÉCTOR LEE M.D. [id number] PHY#: [id number] ID: [id number] JOB#: [id number] ACCT: [id number] cc:SEN MISHRA M.D., MAHMOUD M.D. >
== END 2016-09-28 11:46 | disposition home or self-care (01) ==
LOC: END 09:26
PROVIDERS: ATTEND Specialist
PROC: 0DB68ZX Excision of Stomach, Via Natural or Artificial Opening Endoscopic, Diagnostic (ICD-10-PCS; principal; 2016-09-28 10:00)
DX: K21.0 Gastro-esophageal reflux disease with esophagitis (principal); K44.9 Diaphragmatic hernia without obstruction or gangrene; K29.50 Unspecified chronic gastritis without bleeding; K29.80 Duodenitis without bleeding; R16.0 Hepatomegaly, not elsewhere classified; R19.00 Intra-abdominal and pelvic swelling, mass and lump, unspecified site; R97.0 Elevated carcinoembryonic antigen [CEA]; J43.9 Emphysema, unspecified; I10 Essential (primary) hypertension; E78.00 Pure hypercholesterolemia, unspecified; M19.90 Unspecified osteoarthritis, unspecified site; Z79.51 Long term (current) use of inhaled steroids; Z79.899 Other long term (current) drug therapy
CPT/HCPCS: 43239; 36415; 86301; 82378; 85025; 80053; 82105; 88305 ×2; A9270; J2250; J3010; J2405; J0171; J2310; J2550; J3490

== ENCOUNTER 2016-11-23 08:42 | Day surgery (SDC) | payer MEDICARE, MEDICAID ==
--- NOTE | 2016-11-21 11:20 | HISTORY AND PHYSICAL E ---
History and Physical NAME: MELODY HAIRSTON : 1945 AGE: 70Y ADMITTED: 11/23/2016 ROOM: CHIEF COMPLAINT: Patient presented for colon screening. REFERRING PHYSICIAN: Dr. Bullard. HISTORY OF PRESENT ILLNESS: Patient presented at this time regarding colon exam/colon screening. MEDICAL HISTORY: Patient did have history of polyps in the oropharynx. SURGICAL HISTORY: 1. Partial hysterectomy. 2. Bilateral cataract. SOCIAL HISTORY: Patient quit smoking; quit drinking. Single. Does not smoke. Does not drink. FAMILY HISTORY: Father with accident; Mom with cerebral hemorrhage. REVIEWING OF SYSTEMS: CARDIAC: Hypertension. RESPIRATORY: COPD. Emphysema. GASTROINTESTINAL: Question gastric mass. Colon screening. MUSCULOSKELETAL: Arthritis. Patient was seen 09/28. Underwent upper scope, showing no ulcers, no malignancy. Patient presented at this time for colon screening. Again, upper scope was done 09/28/2016 showing no bacteria. She does have normal alpha fetoprotein 8.2, normal up to 8.3. is normal at 0.5. She does have anemia, hemoglobin 11.9, is 6.3. PHYSICAL EXAMINATION: VITAL SIGNS: Blood pressure 140/90. Pulse 80. Respirations 18. Temperature is 98. HEAD, EYES, EARS, NOSE, THROAT: Normal. ABDOMEN: Soft. NEUROLOGIC: Exam negative. MEDICATION: 1. Hydrochlorothiazide. 2. Nexium. 3. ProAir. 4. 5. Symbicort. DIAGNOSTICS: Patient did have an ultrasound; shows a cyst, left lobe of the liver. There appear to be calcifications. Common duct is the upper limit of normal. CONCLUSION: COLON EXAM: Admit for colonoscopy 11/23. Today is 11/20. DICTATING PHYSICIAN: HÉCTOR LEE M.D. [id number] PHY#: [id number] ID: [id number] JOB#: [id number] ACCT: [id number] cc:SEN BULLARD M.D., MAHMOUD M.D. >
[~2016-11-23 08:42] MED LIST: EPINEPHRINE INJ 1 MG/10 ML DISP.SYRIN ONE; FLUMAZENIL INJ 0.5 MG/5 ML VIAL IV ONE; GLUCAGON,HUMAN RECOMB 1 MG INJ ONE; GLYCOPYRROLATE INJ 0.4 MG/2 ML VIAL ONE; LIDOCAINE 2% JELLY 30 ML TUBE ONE; NALOXONE HCL INJ/PF 0.4 MG/1 ML SDV ONE; ONDANSETRON HCL INJ/PF 4 MG/2 ML SDV ONE
[2016-11-23] MEDS: MIDAZOLAM 2 MG/2 ML INJ ONE ×4 (09:27→09:48)
[2016-11-23] MEDS: FENTANYL CITRATE INJ/PF 100 MCG/2 ML AMPUL ONE ×2 (09:29→09:50)
--- NOTE | 2016-11-23 10:58 | DISCHARGE SUMMARY E ---
Discharge Summary NAME: MELODY HAIRSTON : 1945 AGE: 70Y ADMITTED: 11/23/2016 DISCHARGED: 11/23/2016 HISTORY: The patient is a 70-year-old female who presented today for colon screening. This was successful with some difficulties. The patient had a hysterectomy and redundant colon. She did have a 2-mm polyp in her rectosigmoid junction, benign, too small to biopsy. Her prep was very well and I saw a cecum and ascending normal, transverse and descending normal, very tiny polyps small to biopsy. DISCHARGE PLAN: 1. Full liquids. 2. Baseline CBC. 3. Consider follow-up colonoscopy in 10 years. DICTATING PHYSICIAN: HÉCTOR LEE M.D. [id number] PHY#: [id number] ID: [id number] JOB#: [id number] ACCT: [id number] cc:SEN MISHRA M.D., MAHMOUD M.D. >
--- NOTE | 2016-11-23 10:59 | OPERATIVE REPORT E ---
Operative Report NAME: MELODY HAIRSTON : 1945 AGE: 70Y DATE OF SURGERY: 11/23/2016 ROOM: PREOPERATIVE DIAGNOSIS: Colon screening. POSTOPERATIVE DIAGNOSIS: Diminutive polyp, 2 mm, rectosigmoid junction, small to biopsy. Redundant colon. Difficult intubation. The patient has very redundant sigmoid and descending colon. Colonoscopy completed to the cecum. No evidence of malignancy. Recommend follow-up colon after 10 years. OPERATION: Colonoscopy. SURGEON: HÉCTOR LEE M.D. TISSUE REMOVED OR ALTERED: None. PROCEDURE: Rectal exam normal. Rectosigmoid junction shows 2-mm polyp, small to biopsy. Descending colon difficult to intubate. Normal transverse colon, difficult to intubate. Normal ascending colon. Cecum normal. The patient did have a history of hysterectomy and there are adhesions and scar and her colon is redundant, difficult colonoscopy but successful to the cecum. The scope was withdrawn, cecum, ascending, transverse, descending, sigmoid all the way to the rectum. PLAN: Full liquid diet today. Baseline CBC. The patient is to see us in the office in the next few days. DICTATING PHYSICIAN: HÉCTOR LEE M.D. [id number] PHY#: [id number] ID: [id number] JOB#: [id number] ACCT: [id number] cc:SEN MISHRA M.D., MAHMOUD M.D. >
[2016-11-23 11:00] VITALS: BP 123/60
== END 2016-11-23 11:00 | disposition home or self-care (01) ==
LOC: END 08:42
PROVIDERS: ATTEND Specialist
PROC: 0DJD8ZZ Inspection of Lower Intestinal Tract, Via Natural or Artificial Opening Endoscopic (ICD-10-PCS; principal; 2016-11-23 09:00)
DX: Z12.11 Encounter for screening for malignant neoplasm of colon (principal); D12.7 Benign neoplasm of rectosigmoid junction; K66.0 Peritoneal adhesions (postprocedural) (postinfection); Q43.8 Other specified congenital malformations of intestine; I10 Essential (primary) hypertension; M19.90 Unspecified osteoarthritis, unspecified site; J43.9 Emphysema, unspecified; Z87.891 Personal history of nicotine dependence
CPT/HCPCS: G0121; J2250; J3010; J1610; J2405; J0171; J2310; J3490

== ENCOUNTER 2019-02-03 14:04 | Emergency (ER) | payer MEDICARE, MEDICAID ==
[2019-02-03] MEDS ORDERED: FENTANYL CITRATE INJ/PF 100 MCG/2 ML AMPUL IV ONE (14:45)
[2019-02-03] MEDS ORDERED: ONDANSETRON HCL INJ/PF 4 MG/2 ML SDV IV ONE (14:45)
--- NOTE | 2019-02-03 14:49 | ER Document Report ---
ED Extremity Problem, Lower - General Chief Complaint: Knee Injury Stated Complaint: RIGHT KNEE PAIN Time Seen by Provider: 02/03/19 14:18 Primary Care Provider: MORRIS MONTENEGRO MD [Primary Care Provider] - Follow up as needed Notes: This is a pleasant 73-year-old female who unfortunately tripped and fell. Lande d on her right knee. Significant amount of pain with deformity. Unable to bear weight. Happened shortly prior to arrival. EMS placed icepack and brought her into the ER. Denies any other injuries. Denies any chest pain. Was not a syncopal episode. Patient does have hypertension COPD. Wears oxygen at home. Has hypertension and takes a pressure medicine. TRAVEL OUTSIDE OF THE [place] IN LAST 30 DAYS: No - HPI Patient complains to provider of: Pain, Swelling Location: Knee Occurred: Just prior to arrival Where: Home Onset/Duration: Sudden Quality of pain: Stabbing, Throbbing Severity: Severe Pain Level: 5 Recent injury: No Associated symptoms: [place] a pop, Painful ambulation. denies: Hurts to breath, Weak - Related Data Allergies/Adverse Reactions: moxifloxacin [From Avelox] Allergy (Intermediate, Verified 11/23/16 08:36) Generalized rash Past Medical History - General Information source: Patient - Social History Smoking Status: Current Every Day Smoker Chew tobacco use (# tins/day): No Frequency of alcohol use: None Drug Abuse: None Lives with: Family Family History: None Patient has suicidal ideation: No Patient has homicidal ideation: No - Past Medical History Cardiac Medical History: Reports: Hx Hypercholesterolemia, Hx Hypertension Denies: Hx Coronary Artery Disease, Hx Heart Attack Pulmonary Medical History: Reports: Hx COPD, Hx Pneumonia Denies: Hx Asthma, Hx Bronchitis Neurological Medical History: Denies: Hx Cerebrovascular Accident, Hx Seizures Renal/ Medical History: Denies: Hx Peritoneal Dialysis Musculoskeletal Medical History: Reports Hx Arthritis, Denies Hx Gout Past Surgical History: Reports: Hx Hysterectomy - Immunizations Hx Diphtheria, Pertussis, Tetanus Vaccination: No Hx Pneumococcal Vaccination: 07/15/12 Review of Systems - Review of Systems Notes: Constitutional: denies: Chills, Diaphoresis, Fever, Malaise, Weakness EENT: denies: Eye discharge, Blurred vision, Tearing, Double vision, Nose congestion, Nose discharge, Throat swelling, Mouth pain Cardiovascular: denies: Palpitations, Heart racing, Orthopnea, Dyspnea, Chest pain Respiratory: denies: Cough, Hurts to breathe, Wheezing, Shortness of breath Gastrointestinal: denies: Abdominal pain, Diarrhea, Nausea, Vomiting, Black stools, bright red blood in stool Genitourinary: denies: Burning, Dysuria, Discharge, Frequency, Flank pain, Hematuria Musculoskeletal: Complaining of severe pain in the right knee with deformity. Hematologic/Lymphatic: denies: Anemia, Easy bleeding, Easy bruising, Blood clots Neurological/Psychological: denies: Confusion, Dementia, Depression, Loss of consciousness Skin: No lesions, no masses, no skin breakdown, no abscesses Physical Exam - Vital signs Vitals: Temp Pulse Resp BP Pulse Ox 98 F 96 16 129/98 H 93 02/03/19 14:14 02/03/19 14:14 02/03/19 14:14 02/03/19 14:14 02/03/19 14:14 Interpretation: Normal - General General appearance: Appears well, Alert Notes: Uncomfortable appearing - HEENT Head: Normocephalic, Atraumatic Eyes: Normal Pupils: PERRL - Respiratory Respiratory status: No respiratory distress Chest status: Nontender Breath sounds: Normal Chest palpation: Normal - Cardiovascular Rhythm: Regular Heart sounds: Normal auscultation Murmur: No - Abdominal Inspection: Normal Distension: No distension Bowel sounds: Normal Tenderness: Nontender Organomegaly: No organomegaly - Back Back: Normal, Nontender - Extremities General upper extremity: Normal inspection, Nontender, Normal color, Normal ROM, Normal temperature General lower extremity: Other - Left lower extremity is normal in appearance. No edema. No deformity. Right lower extremity demonstrates deformity at knee. Swelling noted. Patient is neurovascular intact distally. No loss of sensation. Good strong pulses of the dorsalis pedis and posterior tibialis on the right. No pain in the hips. No pain in the ankles. No back pain.. No: Pam's sign - Neurological Neuro grossly intact: Yes Cognition: Normal Orientation: AAOx4 Mandy Coma Scale Eye Opening: Spontaneous Lyons Coma Scale Verbal: Oriented Mandy Coma Scale Motor: Obeys Commands Lyons Coma Scale Total: 15 Speech: Normal Motor strength normal: LUE, RUE, LLE, RLE Sensory: Normal - Psychological Associated symptoms: Normal affect, Normal mood - Skin Skin Temperature: Warm Skin Moisture: Dry Skin Color: Normal Course - Re-evaluation Re-evalutation: 02/03/19 14:49 Fracture care: Initial 24-hour definitive fracture care provided by Dr. Larry Santoyo 02/03/19 16:02 Laboratory 02/03/19 02/03/19 02/03/19 15:20 15:20 15:20 WBC 11.1 H RBC 4.60 Hgb 12.9 Hct 39.1 MCV 85 MCH 28.0 MCHC 32.9 RDW 13.7 Plt Count 257 Seg Neutrophils % 82.5 H Lymphocytes % 11.4 L Monocytes % 5.1 Eosinophils % 0.4 Basophils % 0.6 Absolute Neutrophils 9.2 H Absolute Lymphocytes 1.3 Absolute Monocytes 0.6 Absolute Eosinophils 0.0 Absolute Basophils 0.1 PT 11.7 INR 0.86 APTT 28.9 Sodium 137.3 Potassium 3.7 Chloride 97 L Carbon Dioxide 31 H Anion Gap 9 BUN 18 Creatinine 0.74 Est GFR ( Amer) > 60 Est GFR (Non-Af Amer) > 60 Glucose 95 Calcium 9.5 Total Bilirubin 0.4 Direct Bilirubin 0.3 Neonat Total Bilirubin Not Reportable Neonat Direct Bilirubin Not Reportable Neonat Indirect Bili Not Reportable AST 23 ALT 21 Alkaline Phosphatase 93 Total Protein 7.1 Albumin 4.3 02/03/19 16:07 Patient has a mildly comminuted tibial plateau fracture with minimal d isplacement. Consulted with Dr. Branch with orthopedics. Will place in a knee immobilizer and a compression dressing. He can see her tomorrow at 1 PM. Patient is comfortable with this plan. - Vital Signs Vital signs: Temp Pulse Resp BP Pulse Ox 98 F 96 16 129/98 H 93 02/03/19 14:14 02/03/19 14:14 02/03/19 14:14 02/03/19 14:14 02/03/19 14:14 - Laboratory Result Diagrams: 02/03/19 15:20 02/03/19 15:20 Laboratory results interpreted by me: 02/03/19 02/03/19 15:20 15:20 WBC 11.1 H Seg Neutrophils % 82.5 H Lymphocytes % 11.4 L Absolute Neutrophils 9.2 H Chloride 97 L Carbon Dioxide 31 H - EKG Interpretation by Ne EKG shows normal: [place], Intervals, QRS Complexes, ST-T Waves Rate: Tachycardia Discharge - Discharge Clinical Impression: Tibial plateau fracture, right Qualifiers: Encounter type: initial encounter Fracture type: closed Qualified Code(s): S82.141A - Displaced bicondylar fracture of right tibia, initial encounter for closed fracture Condition: Good Disposition: HOME, SELF-CARE Instructions: Use of Crutches ([facility]), Ice & Elevation ([facility]), Knee Immobilizing Splint ([facility]), Oral Narcotic Medication ([facility]), Fractured Tibia ([facility]) Additional Instructions: You may do limited weightbearing to the right lower extremity. It will be very important that you follow-up with Dr. Branch with orthopedic surgery. In the event the symptoms are getting worse, pain is unbearable or for any other concerns we are here for you. Please return. Prescriptions: Hydrocodone/Acetaminophen [[place] 5-325 mg Tablet] 1 tab PO Q6H PRN 5 Days #20 tablet PRN Reason: Ondansetron [Zofran Odt 4 mg Tablet] 1 - 2 tab PO Q4H PRN #15 tab.rapdis PRN Reason: For Nausea/Vomiting Referrals: MORRIS MONTENEGRO MD [Primary Care Provider] - Follow up as needed MARGARITA BRANCH MD [ACTIVE STAFF] - 02/04/19 1:00 pm
[2019-02-03 15:29] LABS: ABSOLUTE BASOPHILS # (AUTO) 0.1 10^3/uL (0.0-0.2); ABSOLUTE LYMPHOCYTES (AUTO) 1.3 10^3/uL (0.5-4.7); ABSOLUTE MONOCYTES (AUTO) 0.6 10^3/uL (0.1-1.4); ABSOLUTE NEUT (AUTO) 9.2 10^3/uL (1.7-8.2); BASOPHILS % (AUTO) 0.6 % (0-2); EOSINOPHILS % (AUTO) 0.4 % (0-6); HEMATOCRIT 39.1 % (36.0-47.0); HEMOGLOBIN 12.9 g/dL (12.0-15.5); LYMPHOCYTES % (AUTO) 11.4 % (13-45); MEAN CORPUSCULAR HGB CONC 32.9 g/dL (32.0-36.0); MEAN CORPUSCULAR VOLUME 85 fl (80-97); MONOCYTES % (AUTO) 5.1 % (3-13); PLATELET COUNT 257 10^3/uL (150-450); RED CELL DISTRIBUTION WIDTH 13.7 % (11.5-14.0); SEGMENTED NEUTROPHILS % (AUTO) 82.5 % (42-78); TOTAL CELLS COUNTED % (AUTO) 100 %; WHITE BLOOD COUNT 11.1 10^3/uL (4.0-10.5)
[2019-02-03 15:39] LABS: INTERNATIONAL RATION (INR) 0.86; PARTIAL THROMBOPLASTIN TIME 28.9 SEC (23.5-35.8); PROTHROMBIN TIME 11.7 SEC (11.4-15.4)
[2019-02-03 15:49] LABS: ALANINE AMINOTRANSFERASE 21 U/L (9-52); ALBUMIN 4.3 g/dL (3.5-5.0); ALKALINE PHOSPHATASE 93 U/L (38-126); ANION GAP 9 (5-19); ASPARTATE AMINO TRANSFERASE 23 U/L (14-36); BILIRUBIN,DIRECT 0.3 mg/dL (0.0-0.4); BILIRUBIN,TOTAL 0.4 mg/dL (0.2-1.3); BLOOD UREA NITROGEN 18 mg/dL (7-20); CALCIUM 9.5 mg/dL (8.4-10.2); CARBON DIOXIDE 31 mmol/L (22-30); CHLORIDE 97 mmol/L (98-107); GLUCOSE 95 mg/dL (75-110); POTASSIUM 3.7 mmol/L (3.6-5.0); TOTAL PROTEIN 7.1 g/dL (6.3-8.2)
[2019-02-03] MEDS ORDERED: KETOROLAC TROMETHAMINE INJ/PF 30 MG/1 ML SDV IV ONE (16:12)
[2019-02-03] MEDS ORDERED: HYDROMORPHONE HCL INJ/PF 2 MG/ML AMPULE IV ONE (16:12)
[2019-02-03] MEDS ORDERED: HYDROCODONE/ACETAMINOPHEN 5-325 MG (6 TAB/ER DISP) PO PRN (16:16)
[2019-02-03] MEDS ORDERED: ONDANSETRON ODT 4 MG TAB (6 TAB/ER DISP) PO PRN (16:17)
--- NOTE | 2019-02-03 16:32 | RADIOLOGY REPORT (SQ) ---
EXAM DESCRIPTION: KNEE RIGHT 4 VIEWS COMPLETED DATE/TIME: 02/03/2019 3:07 pm REASON FOR STUDY: bed 21 r knee tenderness s/p fall COMPARISON: None. NUMBER OF VIEWS: Four views. TECHNIQUE: AP, lateral, and both oblique radiographic images acquired of the right knee. LIMITATIONS: None. FINDINGS: MINERALIZATION: Normal. BONES: There is a tibial plateau fracture. There appears to be involvement of both the medial collat eral aspect of the tibial plateau. JOINT: There is a joint effusion most likely hemarthrosis. SOFT TISSUES: No soft tissue swelling. No radio-opaque foreign body. OTHER: No other significant finding. IMPRESSION: Tibial plateau fracture with associated joint effusion. TECHNICAL DOCUMENTATION: JOB ID: [id number] [employer]- All Rights Reserved Reading location - IP/workstation name: [email or web address]
[2019-02-03 16:55] VITALS: BP 134/83
--- NOTE | 2019-02-03 23:18 | EKG REPORT ---
SEVERITY:- OTHERWISE NORMAL ECG - SINUS TACHYCARDIA : Confirmed by: Brooks Caputo 03-Feb-2019 23:17:02
== END 2019-02-03 17:00 | disposition home or self-care (01) ==
LOC: ER 14:04
DX: S82.141A Displaced bicondylar fracture of right tibia, initial encounter for closed fracture (principal); W01.0XXA Fall on same level from slipping, tripping and stumbling without subsequent striking against object, initial encounter; Y92.009 Unspecified place in unspecified non-institutional (private) residence as the place of occurrence of the external cause; F17.200 Nicotine dependence, unspecified, uncomplicated; E78.00 Pure hypercholesterolemia, unspecified; I10 Essential (primary) hypertension; Z88.3 Allergy status to other anti-infective agents; Z90.710 Acquired absence of both cervix and uterus
CPT/HCPCS: 93005; 99284; 96374; 96375; 36415; 85025; 85610; 85730; 80053; 73564; 93010; 29505; L1830; J3010; J1885; J1170; J2405; A9270 ×2

== ENCOUNTER 2019-02-16 10:52 | Inpatient (IN) | payer MEDICARE, MEDICAID ==
[2019-02-16] MEDS ORDERED: METHYLPREDNISOLONE INJ 125 MG/2 ML SDV IV ONE (11:10)
[2019-02-16] MEDS ORDERED: METHYLPREDNISOLONE INJ 125 MG/2 ML SDV ONE (11:10)
--- NOTE | 2019-02-16 11:17 | ER Document Report ---
ED Respiratory Problem - General Chief Complaint: Shortness Of Breath Stated Complaint: SICK Time Seen by Provider: 02/16/19 11:14 Primary Care Provider: MORRIS MONTENEGRO MD [Primary Care Provider] - Follow up as needed Notes: Patient brought in by EMS for difficulty breathing and shortness of breath this morning. Patient has a history of COPD, stopped smoking a couple of years ago. She uses home oxygen all the time at 3 L as well as home nebulizer of albuterol 3 times a day. She used her breathing treatment once this morning. Patient says she has had a cough this new, but no chest pain and no fevers. Has had some nausea but denies vomiting. First responders at the scene found her oxygen saturation in the mid 80s. They put her on a nonrebreather bag and her O2 sat went up into the upper 90s. When EMS arrived, they put the patient on 6 L of nasal cannula O2 and her oxygen saturation held in the 93-95 area. She had a very low-grade fever 100.3. EMS did not give patient a nebulizer in route be cause her heart rate was in the 120s. Patient was here February 03 after a fall and was found to have a tibial plateau fracture of her right leg. She saw an orthopedist in follow-up who put her in a knee immobilizer and plans to let it "heal on its own". TRAVEL OUTSIDE OF THE [place] IN LAST 30 DAYS: No - Related Data Allergies/Adverse Reactions: moxifloxacin [From Avelox] Allergy (Intermediate, Verified 11/23/16 08:36) Generalized rash Past Medical History - Social History Smoking Status: Former Smoker - Stopped 2 years ago. Family History: None, Reviewed & Not Pertinent - Past Medical History Cardiac Medical History: Reports: Hx Hypercholesterolemia, Hx Hypertension Pulmonary Medical History: Reports: Hx COPD - On home nebulizers and on home oxygen at 3 L all the time., Hx Pneumonia Musculoskeletal Medical History: Reports Hx Arthritis Past Surgical History: Reports: Hx Hysterectomy - Immunizations Hx Diphtheria, Pertussis, Tetanus Vaccination: No Hx Pneumococcal Vaccination: 07/15/12 Review of Systems - Review of Systems Notes: REVIEW OF SYSTEMS: CONSTITUTIONAL : Denies fever. EENT: Denies eye, ear, nose or mouth or throat pain or other symptoms. CARDIOVASCULAR: Denies chest pain. RESPIRATORY: See HPI. GASTROINTESTINAL: Denies abdominal pain or nausea, vomiting, or diarrhea. GENITOURINARY: Denies difficulty or painful urinating, urinary frequency, blood in urine. MUSCULOSKELETAL: Denies back or neck pain. Denies joint pain or swelling. SKIN: Denies rash or skin lesions. NEUROLOGICAL: Denies LOC or altered mental status. Denies headache. Denies sensory loss or motor deficits. ALL OTHER SYSTEMS REVIEWED AND NEGATIVE. Physical Exam - Vital signs Vitals: Resp Pulse Ox 23 H 91 L 02/16/19 11:08 02/16/19 11:08 Interpretation: Normal. No: Hypoxic - On oxygen Notes: PHYSICAL EXAMINATION: GENERAL: Well-appearing, in no acute distress. Oxygen in place. Vital signs show a heart rate of 125 on the monitor. O2 sat in the mid 90s. HEAD: Atraumatic, normocephalic. EYES: Pupils equal round and reactive to light, extraocular movements intact. ENT: oropharynx clear without exudates. Moist mucous membranes. NECK: Normal range of motion, supple. LUNGS: Breath sounds clear and equal bilaterally. No wheezes heard at this time. HEART: Regular rate and rhythm without murmurs. Heart rate 125 at bedside by me. ABDOMEN: Soft, nontender. No guarding or rebound. No masses. BACK: No tenderness throughout entire back. EXTREMITIES: Right leg is in a knee immobilizer. NEUROLOGICAL: Normal speech. Patient is unable to ambulate. Otherwise, grossly normal neurologic exam. Awake, alert, and oriented x3. PSYCH: Normal mood, normal affect. SKIN: Warm, dry, no rashes. Course - Re-evaluation Re-evalutation: 02/16/19 14:19 Based upon the chest x-ray and CT findings, patient was started on Rocephin. She is maintaining her oxygen saturation in the mid 90s on supplemental oxygen. Her heart rate is now down to 108 from the 125 when she arrived here. Listening to her lungs, she has very few wheezes if any at this time. I am not giving her any nebulizers because her lungs are so clear. She has had Solu-Medrol IV when she arrived. - Vital Signs Vital signs: Temp Pulse Resp BP Pulse Ox 93 20 111/60 93 02/16/19 14:57 02/16/19 14:57 02/16/19 14:57 02/16/19 14:57 - Laboratory Result Diagrams: 02/16/19 11:05 02/16/19 11:05 Laboratory results interpreted by me: 02/16/19 02/16/19 02/16/19 11:05 11:05 11:05 WBC 12.0 H Hgb 11.3 L Hct 34.9 L Seg Neuts % (Manual) 91 H Lymphocytes % (Manual) 5 L Abs Neuts (Manual) 10.9 H VBG pH 7.45 H Sodium 135.8 L Potassium 3.5 L Chloride 91 L Carbon Dioxide 34 H BUN 21 H POC Glucose Urine Ketones Urine Blood Urine Nitrite Urine Urobilinogen 02/16/19 02/16/19 11:45 13:11 WBC Hgb Hct Seg Neuts % (Manual) Lymphocytes % (Manual) Abs Neuts (Manual) VBG pH Sodium Potassium Chloride Carbon Dioxide BUN POC Glucose 113 H Urine Ketones TRACE H Urine Blood SMALL H Urine Nitrite POSITIVE H Urine Urobilinogen 2.0 H - Diagnostic Test Radiology results interpreted by me: 02/16/19 14:27 Chest x-ray shows some consolidation in the right lung base, suggestive of possible pneumonia. CTA of the chest shows no evidence of pulmonary emboli. However, CTA shows what is likely bilateral basilar infiltrates. - EKG Interpretation by Ri EKG shows normal: Sinus rhythm Rate: Tachycardia Rhythm: NSR Additional EKG results interpreted by me: 02/16/19 14:28 EKG is otherwise normal. Critical Care Note - Critical Care Note Total time excluding time spent on procedures (mins): 30 Discharge - Discharge Clinical Impression: Pneumonia, COPD exacerbation, Urinary tract infection Condition: Good Disposition: ADMITTED INPATIENT Admitting Provider: Cortez (Hospitalist) Unit Admitted: Medical Floor Referrals: MORRIS MONTENEGRO MD [Primary Care Provider] - Follow up as needed
[2019-02-16 11:34] LABS: HEMATOCRIT 34.9 % (36.0-47.0); HEMOGLOBIN 11.3 g/dL (12.0-15.5); MEAN CORPUSCULAR HGB CONC 32.5 g/dL (32.0-36.0); MEAN CORPUSCULAR VOLUME 86 fl (80-97); PLATELET COUNT 348 10^3/uL (150-450); RED BLOOD COUNT 4.05 10^6/uL (3.72-5.28); RED CELL DISTRIBUTION WIDTH 13.8 % (11.5-14.0)
[2019-02-16 11:36] LABS: VENOUS BLOOD BASE EXCESS 6.4 mmol/L; VENOUS BLOOD HCO3 31.4 mmol/L (20-32); VENOUS BLOOD PCO2 46.2 mmHg (35-63); VENOUS BLOOD PH 7.45 (7.30-7.42)
--- NOTE | 2019-02-16 11:39 | RADIOLOGY REPORT (SQ) ---
EXAM DESCRIPTION: CHEST SINGLE VIEW COMPLETED DATE/TIME: 02/16/2019 11:26 am REASON FOR STUDY: SOB COMPARISON: 09/03/2016 EXAM PARAMETERS: NUMBER OF VIEWS: One view. TECHNIQUE: Single frontal radiographic view of the chest acquired. RADIATION DOSE: NA LIMITATIONS: None. FINDINGS: LUNGS AND PLEURA: Limited opacification in the right base. Subsegmental atelectasis in th e left base. MEDIASTINUM AND HILAR STRUCTURES: No masses. Contour normal. HEART AND VASCULAR STRUCTURES: Cardiomegaly. No pulmonary edema. BONES: No acute findings. HARDWARE: None in the chest. OTHER: No other significant finding. IMPRESSION: Cardiomegaly without pulmonary edema. There is limited opacification in the right base, pneumonia versus atelectasis. Subsegmental atelectasis in the left base. TECHNICAL DOCUMENTATION: JOB ID: [id number] [employer]- All Rights Reserved Reading location - IP/workstation name: [email or web address]
[2019-02-16 11:46] LABS: INTERNATIONAL RATION (INR) 0.96; PROTHROMBIN TIME 12.8 SEC (11.4-15.4)
[2019-02-16 11:52] LABS: ALBUMIN 3.8 g/dL (3.5-5.0); ALKALINE PHOSPHATASE 121 U/L (38-126); ANION GAP 11 (5-19); ASPARTATE AMINO TRANSFERASE 20 U/L (14-36); BILIRUBIN,DIRECT 0.4 mg/dL (0.0-0.4); BILIRUBIN,TOTAL 0.6 mg/dL (0.2-1.3); BLOOD UREA NITROGEN 21 mg/dL (7-20); CALCIUM 9.8 mg/dL (8.4-10.2); CARBON DIOXIDE 34 mmol/L (22-30); CHLORIDE 91 mmol/L (98-107); GLUCOSE 107 mg/dL (75-110); POTASSIUM 3.5 mmol/L (3.6-5.0); TOTAL PROTEIN 6.7 g/dL (6.3-8.2)
[2019-02-16] MEDS ORDERED: ACETAMINOPHEN 325 MG TABLET PO ONE (11:55)
[2019-02-16 12:08] LABS: ABSOLUTE LYMPHOCYTES# (MANUAL) 0.6 10^3/uL (0.5-4.7); ABSOLUTE MONOCYTES # (MANUAL) 0.4 10^3/uL (0.1-1.4); BASOPHILS % (MANUAL) 0 % (0-2); EOSINOPHILS % (MANUAL) 1 % (0-6); LYMPHOCYTES % (MANUAL) 5 % (13-45); MONOCYTES % (MANUAL) 3 % (3-13); SEGMENTED NEUTROPHILS % (MAN) 91 % (42-78); TOTAL CELLS COUNTED 100
[2019-02-16 12:09] LABS: OVALOCYTES 1+; PLATELET COMMENT ADEQUATE; POIKILOCYTOSIS 1+; STOMATOCYTES 1+
--- NOTE | 2019-02-16 12:58 | RADIOLOGY REPORT (SQ) ---
EXAM DESCRIPTION: CTA CHEST COMPLETED DATE/TIME: 02/16/2019 12:23 pm REASON FOR STUDY: COPD, cough, S OB, tachycardia COMPARISON: AP chest 02/16/2019 TECHNIQUE: CT scan of the chest performed using helical scanning technique with dynamic intravenous contrast injection. Images reviewed with lung, soft tissue and bone windows. Reconstructed coronal and sagittal MPR images reviewed. Additional 3 dimensional post-processing performed to develop Maximal Intensity Projection images (PA P). All images stored on PACS. All CT scanners at this facility use dose modulation, iterative reconstruction, and/or weight based d osing when appropriate to reduce radiation dose to as low as reasonably achievable (ALARA). [facility]: Dose Right [facility]: CareDose [facility]: Dose Right [facility]: Teradose 4D [facility]: Ideagen CONTRAST TYPE AND DOSE: contrast/concentration: Isovue 350.00 mg/ml; Total Contrast Delivered: 50.0 ml; Total Saline Delivered: 70.0 ml Contrast bolus optimized for the pulmonary arteries and thoracic aorta. RENAL FUNCTION: Creatinine 0.8 RADIATION DOSE: CT Rad equipment meets quality standard of care and radiation dose reduction techniq ues were employed. CTDIvol: 6.6 - 14.3 mGy. DLP: 503 mGy-cm. . LIMITATIONS: Motion artifact, limited contrast bolus for the pulmonary arteries FINDINGS: LUNGS AND PLEURA: Obstructive lung disease is present, most pronounced at the apices. There is bibasilar consolidation right greater than left atelectasis versus pneumonia. No pleural effusions. No pneumothorax. AORTA AND GREAT VESSELS: No aneurysm. Contrast bolus not optimized for the aorta. HEART: No pericardial effusion. Heavy LAD coronary artery calcifications. PULMONARY ARTERIES: No emboli visualized in the main pulmonary arteries or the segmental branches. HILAR AND MEDIASTINAL STRUCTURES: Moderate size retrocardiac hiatal hernia. Reflux and aspiration pn eumonia should be considered. HARDWARE: None in the chest. UPPER ABDOMEN: 4 cm cyst left lobe liver THYROID AND OTHER SOFT TISSUES: No masses. No adenopathy. BONES: No acute or significant finding. 3D MIPS: Confirm above findings. OTHER: No other significant finding. IMPRESSION: Bibasilar consolidation worrisome for pneumonia. No gross CTA evidence of acute pulmonary emboli or thoracic aortic dissection Moderate-sized retrocardiac hiatal hernia. Reflux and aspiration pneumonia should be considered COMMENT: Quality ID # [id number]: Final reports with documentation of one or more dose reduction techniques (e.g., Automated exposure control, adjustment of the mA and/or kV according to patient size, use of iterative reconstruction technique) TECHNICAL DOCUMENTATION: JOB ID: [id number] [employer]- All Rights Reserved Reading location - IP/workstation name: [email or web address]
--- NOTE | 2019-02-16 13:18 | EKG REPORT ---
SEVERITY:- OTHERWISE NORMAL ECG - SINUS TACHYCARDIA BORDERLINE LEFT AXIS DEVIATION : Confirmed by: Leo Renee MD 16-Feb-2019 13:17:42
[2019-02-16 13:30] LABS: APPEARANCE,URINE SLIGHTLY-CLOUDY; BILIRUBIN,URINE NEGATIVE (NEGATIVE); COLOR,URINE YELLOW; GLUCOSE, URINE NEGATIVE (NEGATIVE); KETONES,URINE TRACE mg/dL (NEGATIVE); LEUKOCYTE ESTERASE,URINE NEGATIVE (NEGATIVE); NITRITE,URINE POSITIVE (NEGATIVE); PROTEIN,URINE NEGATIVE (NEGATIVE); URINE SPECIFIC GRAVITY 1.018
[2019-02-16] MEDS ORDERED: CEFTRIAXONE 1 GM/D5W RTU 1 GM/50 ML RTUPB IV ONE (14:20)
--- NOTE | 2019-02-16 15:14 | PDOC H&P ---
History of Present Illness Admission Date/PCP: MORRIS MONTENEGRO MD History of Present Illness: MELODY HAIRSTON is a 73 year old female patient with past medical history of chronic respiratory failure O2 dependent 04/02, COPD, hypertension, hyperlipidemia and recent fall sustaining right tibial plateau fracture presented with chief complaint of shortness of breath. Patient has underlying long-standing shortness of breath but the last 2 days her shortness of breath is severe and worse precipitated by mild exertion and failed to respond to her usual breathing treatment and oxygen. Her blood work shows mild leukocytosis of 12,000. Since she has history of recent leg fracture to the ER attending suspected PE and she has CT of the chest which is reported negative for PE but she has bibasilar consolidation worrisome for pneumonia. Patient denies any chills, fever, chest pain, palpitation, diaphoresis, nausea, vomiting, abdominal pain or urinary complaints. Past Medical History Cardiac Medical History: Reports: Hyperlipidema, Hypertension Denies: Coronary Artery Disease, Myocardial Infarction Pulmonary Medical History: Reports: Chronic Obstructive Pulmonary Disease (COPD) - On home nebulizers and on home oxygen at 3 L all the time., Pneumonia Denies: Asthma, Bronchitis Neurological Medical History: Denies: Seizures Musculoskeltal Medical History: Reports: Arthritis Denies: Gout Hematology: Denies: Anemia Past Surgical History Past Surgical History: Reports: Hysterectomy Social History Smoking Status: Former Smoker - Stopped 2 years ago. Hx Recreational Drug Use: No Hx Prescription Drug Abuse: No - Advance Directive Resuscitation Status: Full Code Family History Family History: None, Reviewed & Not Pertinent Parental Family History Reviewed: Yes Children Family History Reviewed: Yes Sibling(s) Family History Reviewed.: Yes Medication/Allergy Home Medications: Hydrochlorothiazide 12.5 mg PO DAILY 09/04/16 Lovastatin 40 mg PO DAILY 09/04/16 Albuterol Sulfate [Ventolin Hfa] 2 puff IH Q4HP PRN #0 [email or web address] 09/09/16 Budesonide/Formoterol Fumarate [Symbicort HFA 160-4.5 mcg Inhaler 6 gm] 2 puff IH Q12 #0 inhaler 09/09/16 Hydrocodone/Acetaminophen [Steedman 5-325 mg Tablet] 1 tab PO Q6H PRN 5 Days #20 tablet 02/03/19 Ondansetron [Zofran Odt 4 mg Tablet] 1 - 2 tab PO Q4H PRN #15 tab.rapdis 02/03/19 Allergies/Adverse Reactions: moxifloxacin [From Avelox] Allergy (Intermediate, Verified 11/23/16 08:36) Generalized rash Review of Systems Constitutional: PRESENT: as per HPI Cardiovascular: PRESENT: as per HPI Respiratory: PRESENT: as per HPI, dyspnea Gastrointestinal: PRESENT: as per HPI Integumentary: PRESENT: as per HPI Neurological: PRESENT: as per HPI Psychiatric: PRESENT: as per HPI Physical Exam Vital Signs: Temp Pulse Resp BP Pulse Ox 93 20 111/60 93 02/16/19 14:57 02/16/19 14:57 02/16/19 14:57 02/16/19 14:57 General appearance: PRESENT: well-nourished, other - Moderate distress Head exam: PRESENT: atraumatic Eye exam: PRESENT: conjunctiva pink Mouth exam: PRESENT: moist Neck exam: ABSENT: carotid bruit, JVD, lymphadenopathy, thyromegaly Respiratory exam: PRESENT: crackles, decreased breath sounds Cardiovascular exam: PRESENT: RRR. ABSENT: diastolic murmur, rubs, systolic murmur GI/Abdominal exam: PRESENT: normal bowel sounds, soft. ABSENT: distended, guarding, mass, organolmegaly, rebound, tenderness Neurological exam: PRESENT: alert, oriented to person, oriented to place, oriented to time, oriented to situation Results Laboratory Results: 02/16/19 11:05 02/16/19 11:05 02/16/19 02/16/19 02/16/19 11:05 11:05 11:05 WBC 12.0 H RBC 4.05 Hgb 11.3 L Hct 34.9 L MCV 86 MCH 28.0 MCHC 32.5 RDW 13.8 Plt Count 348 Seg Neutrophils % Not Reportable Lymphocytes % Not Reportable Monocytes % Not Reportable Eosinophils % Not Reportable Basophils % Not Reportable Absolute Neutrophils Not Reportable Absolute Lymphocytes Not Reportable Absolute Monocytes Not Reportable Absolute Eosinophils Not Reportable Absolute Basophils Not Reportable VBG pH VBG pCO2 VBG HCO3 VBG Base Excess Sodium 135.8 L Potassium 3.5 L Chloride 91 L Carbon Dioxide 34 H Anion Gap 11 BUN 21 H Creatinine 0.84 Est GFR ( Amer) > 60 Est GFR (Non-Af Amer) > 60 Glucose 107 Lactic Acid 0.9 Calcium 9.8 Total Bilirubin 0.6 AST 20 Alkaline Phosphatase 121 Total Protein 6.7 Albumin 3.8 Urine Color Urine Appearance Urine pH Ur Specific [place] Urine Protein Urine Glucose (UA) Urine Ketones Urine Blood Urine Nitrite Ur Leukocyte Esterase Urine WBC (Auto) Urine RBC (Auto) 02/16/19 02/16/19 11:05 13:11 WBC RBC Hgb Hct MCV MCH MCHC RDW Plt Count Seg Neutrophils % Lymphocytes % Monocytes % Eosinophils % Basophils % Absolute Neutrophils Absolute Lymphocytes Absolute Monocytes Absolute Eosinophils Absolute Basophils VBG pH 7.45 H VBG pCO2 46.2 VBG HCO3 31.4 VBG Base Excess 6.4 Sodium Potassium Chloride Carbon Dioxide Anion Gap BUN Creatinine Est GFR ( Amer) Est GFR (Non-Af Amer) Glucose Lactic Acid Calcium Total Bilirubin AST Alkaline Phosphatase Total Protein Albumin Urine Color YELLOW Urine Appearance SLIGHTLY-CLOUDY Urine pH 5.0 Ur Specific [place] 1.018 Urine Protein NEGATIVE Urine Glucose (UA) NEGATIVE Urine Ketones TRACE H Urine Blood SMALL H Urine Nitrite POSITIVE H Ur Leukocyte Esterase NEGATIVE Urine WBC (Auto) 9 Urine RBC (Auto) 1 Impressions: Chest X-Ray 02/16/19 00:00 IMPRESSION: Cardiomegaly without pulmonary edema. There is limited opacification in the right base, pneumonia versus atelectasis. Subsegmental atelectasis in the left base. Chest/Abdomen CTA 02/16/19 11:55 IMPRESSION: Bibasilar consolidation worrisome for pneumonia. No gross CTA evidence of acute pulmonary emboli or thoracic aortic dissection Moderate-sized retrocardiac hiatal hernia. Reflux and aspiration pneumonia should be considered Assessment and Plan - Diagnosis (1) Bilateral pneumonia Is this a current diagnosis for this admission?: Yes Plan: She has mild leukocytosis and this CT chest reported as bibasilar consolidation worrisome for pneumonia. Patient has been started on Zithromax and ceftriaxone. (2) COPD with exacerbation Is this a current diagnosis for this admission?: Yes Plan: Patient has been started on bronchodilators and Solu-Medrol. (3) Hypertension Qualifiers: Hypertension type: essential hypertension Qualified Code(s): I10 - Essential (primary) hypertension Is this a current diagnosis for this admission?: Yes Plan: Continue home medication (4) Hyperlipidemia Qualifiers: Hyperlipidemia type: unspecified Qualified Code(s): E78.5 - Hyperlipidemia, unspecified Is this a current diagnosis for this admission?: Yes Plan: Continue home medication
[2019-02-16] MEDS: ENOXAPARIN SODIUM INJ 40 MG/0.4 ML DISP.SYRIN SUBCUT SCH (16:13)
[2019-02-16] MEDS: IPRATROPIUM/ALBUTEROL 0.5-2.5 MG/3 ML AMPUL NEB SCH ×3 (16:17→23:58)
[2019-02-16] MEDS ORDERED: TIOTROPIUM BROMIDE DPI 5 CAP/KIT (18 MCG/CAP) IH ONE (16:30)
[2019-02-16] MEDS ORDERED: DOCUSATE SODIUM 100 MG/10 ML UDC PO SCH (18:00)
[2019-02-16] MEDS: ACETAMINOPHEN 325 MG TABLET PO PRN (18:45)
[2019-02-16] MEDS: IBUPROFEN 400 MG TABLET PO PRN (19:45)
[2019-02-16] MEDS: AZITHROMYCIN 500 MG in DEXTROSE 5%-WATER 250 ML IV SCH (19:46)
[2019-02-16] MEDS: METHYLPREDNISOLONE INJ 40 MG/1 ML SDV IV SCH (21:24)
[2019-02-16] MEDS: FAMOTIDINE 20 MG TABLET PO SCH (21:24)
[2019-02-16] MEDS: TEMAZEPAM 7.5 MG CAPSULE PO PRN (21:24)
[2019-02-17] MEDS: ACETAMINOPHEN 325 MG TABLET PO PRN (01:17)
[2019-02-17] MEDS: IPRATROPIUM/ALBUTEROL 0.5-2.5 MG/3 ML AMPUL NEB SCH ×6 (03:57→23:58)
[2019-02-17] MEDS: METHYLPREDNISOLONE INJ 40 MG/1 ML SDV IV SCH ×3 (06:18→21:15)
[2019-02-17 06:58] LABS: ABSOLUTE LYMPHOCYTES (AUTO) 0.7 10^3/uL (0.5-4.7); ABSOLUTE MONOCYTES (AUTO) 0.3 10^3/uL (0.1-1.4); ABSOLUTE NEUT (AUTO) 9.5 10^3/uL (1.7-8.2); BASOPHILS % (AUTO) 0.2 % (0-2); HEMATOCRIT 31.1 % (36.0-47.0); HEMOGLOBIN 10.3 g/dL (12.0-15.5); LYMPHOCYTES % (AUTO) 6.8 % (13-45); MEAN CORPUSCULAR HEMOGLOBIN 28.2 pg (27.0-33.4); MEAN CORPUSCULAR HGB CONC 33.1 g/dL (32.0-36.0); MEAN CORPUSCULAR VOLUME 85 fl (80-97); MONOCYTES % (AUTO) 2.8 % (3-13); PLATELET COUNT 361 10^3/uL (150-450); RED BLOOD COUNT 3.66 10^6/uL (3.72-5.28); RED CELL DISTRIBUTION WIDTH 13.8 % (11.5-14.0); SEGMENTED NEUTROPHILS % (AUTO) 90.2 % (42-78); TOTAL CELLS COUNTED % (AUTO) 100 %; WHITE BLOOD COUNT 10.5 10^3/uL (4.0-10.5)
[2019-02-17 07:13] LABS: ANION GAP 12 (5-19); BLOOD UREA NITROGEN 26 mg/dL (7-20); CALCIUM 9.6 mg/dL (8.4-10.2); CARBON DIOXIDE 31 mmol/L (22-30); CHLORIDE 90 mmol/L (98-107); GLUCOSE 157 mg/dL (75-110); POTASSIUM 3.3 mmol/L (3.6-5.0)
--- NOTE | 2019-02-17 07:45 | Progress Note Acknowledgement ---
Progress Note Acknowledgement Progess Note Acknowledgement: I, the undersigned member of the medical staff with appropriate privileges and with supervisory authority over [Chester Nassar], a dependent practice allied health professional, acknowledge that I have reviewed the progress notes entered on this patient, and in my professional judgment believe that the assessment made and/or any care evidenced was appropriate
[2019-02-17] MEDS ORDERED: DEXTROSE 40% GEL 15 GM TUBE PO PRN ×2 (07:51)
[2019-02-17] MEDS ORDERED: DEXTROSE 50%-WATER 25 GM/50 ML DISP.SYRIN IV PRN ×2 (07:51)
[2019-02-17] MEDS ORDERED: GLUCAGON,HUMAN RECOMB 1 MG INJ IM PRN (07:51)
--- NOTE | 2019-02-17 07:52 | PDOC PROGRESS REPORT ---
Subjective Progress Note for:: 02/17/19 Subjective:: February 17, 2019-no complaints this a.m. Reason For Visit: BILATERAL PNEUMONIA,COPD EXACERBATION Physical Exam Vital Signs: Temp Pulse Resp BP Pulse Ox 97.6 F 93 19 98/57 L 92 02/16/19 23:13 02/17/19 03:58 02/17/19 03:58 02/16/19 23:13 02/17/19 03:58 Intake & Output 02/16/19 02/17/19 02/18/19 06:59 06:59 06:59 Intake Total 50 Output Total 120 Balance -70 Weight 65 kg General appearance: PRESENT: no acute distress, well-developed, well-nourished Head exam: PRESENT: atraumatic, normocephalic Eye exam: PRESENT: conjunctiva pink, EOMI, PERRLA. ABSENT: scleral icterus Ear exam: PRESENT: normal external ear exam Mouth exam: PRESENT: moist, tongue midline Neck exam: ABSENT: carotid bruit, JVD, lymphadenopathy, thyromegaly Respiratory exam: PRESENT: clear to auscultation douglas. ABSENT: rales, rhonchi, wheezes Cardiovascular exam: PRESENT: RRR. ABSENT: diastolic murmur, rubs, systolic murmur Pulses: PRESENT: normal dorsalis pedis pul Vascular exam: PRESENT: normal capillary refill GI/Abdominal exam: PRESENT: normal bowel sounds, soft. ABSENT: distended, guarding, mass, organolmegaly, rebound, tenderness Rectal exam: PRESENT: deferred Extremities exam: PRESENT: full ROM, other - Brace on right lower extremity secondary to previous fracture. ABSENT: calf tenderness, clubbing, pedal edema Neurological exam: PRESENT: alert, awake, oriented to person, oriented to place, oriented to time, oriented to situation, CN II-XII grossly intact. ABSENT: motor sensory deficit Psychiatric exam: PRESENT: appropriate affect, normal mood. ABSENT: homicidal ideation, suicidal ideation Skin exam: PRESENT: dry, intact, warm. ABSENT: cyanosis, rash Results Laboratory Results: 02/17/19 05:58 02/17/19 05:58 02/16/19 02/16/19 02/16/19 11:05 11:05 11:05 WBC 12.0 H RBC 4.05 Hgb 11.3 L Hct 34.9 L MCV 86 MCH 28.0 MCHC 32.5 RDW 13.8 Plt Count 348 Seg Neutrophils % Not Reportable Lymphocytes % Not Reportable Monocytes % Not Reportable Eosinophils % Not Reportable Basophils % Not Reportable Absolute Neutrophils Not Reportable Absolute Lymphocytes Not Reportable Absolute Monocytes Not Reportable Absolute Eosinophils Not Reportable Absolute Basophils Not Reportable VBG pH VBG pCO2 VBG HCO3 VBG Base Excess Sodium 135.8 L Potassium 3.5 L Chloride 91 L Carbon Dioxide 34 H Anion Gap 11 BUN 21 H Creatinine 0.84 Est GFR ( Amer) > 60 Est GFR (Non-Af Amer) > 60 Glucose 107 Lactic Acid 0.9 Calcium 9.8 Total Bilirubin 0.6 AST 20 Alkaline Phosphatase 121 Total Protein 6.7 Albumin 3.8 Urine Color Urine Appearance Urine pH Ur Specific [place] Urine Protein Urine Glucose (UA) Urine Ketones Urine Blood Urine Nitrite Ur Leukocyte Esterase Urine WBC (Auto) Urine RBC (Auto) 02/16/19 02/16/19 02/17/19 11:05 13:11 05:58 WBC 10.5 RBC 3.66 L Hgb 10.3 L Hct 31.1 L MCV 85 MCH 28.2 MCHC 33.1 RDW 13.8 Plt Count 361 Seg Neutrophils % 90.2 H Lymphocytes % 6.8 L Monocytes % 2.8 L Eosinophils % 0.0 Basophils % 0.2 Absolute Neutrophils 9.5 H Absolute Lymphocytes 0.7 Absolute Monocytes 0.3 Absolute Eosinophils 0.0 Absolute Basophils 0.0 VBG pH 7.45 H VBG pCO2 46.2 VBG HCO3 31.4 VBG Base Excess 6.4 Sodium Potassium Chloride Carbon Dioxide Anion Gap BUN Creatinine Est GFR ( Amer) Est GFR (Non-Af Amer) Glucose Lactic Acid Calcium Total Bilirubin AST Alkaline Phosphatase Total Protein Albumin Urine Color YELLOW Urine Appearance SLIGHTLY-CLOUDY Urine pH 5.0 Ur Specific [place] 1.018 Urine Protein NEGATIVE Urine Glucose (UA) NEGATIVE Urine Ketones TRACE H Urine Blood SMALL H Urine Nitrite POSITIVE H Ur Leukocyte Esterase NEGATIVE Urine WBC (Auto) 9 Urine RBC (Auto) 1 02/17/19 05:58 WBC RBC Hgb Hct MCV MCH MCHC RDW Plt Count Seg Neutrophils % Lymphocytes % Monocytes % Eosinophils % Basophils % Absolute Neutrophils Absolute Lymphocytes Absolute Monocytes Absolute Eosinophils Absolute Basophils VBG pH VBG pCO2 VBG HCO3 VBG Base Excess Sodium 132.6 L Potassium 3.3 L Chloride 90 L Carbon Dioxide 31 H Anion Gap 12 BUN 26 H Creatinine 0.74 Est GFR ( Amer) > 60 Est GFR (Non-Af Amer) > 60 Glucose 157 H Lactic Acid Calcium 9.6 Total Bilirubin AST Alkaline Phosphatase Total Protein Albumin Urine Color Urine Appearance Urine pH Ur Specific [place] Urine Protein Urine Glucose (UA) Urine Ketones Urine Blood Urine Nitrite Ur Leukocyte Esterase Urine WBC (Auto) Urine RBC (Auto) Impressions: Chest X-Ray 02/16/19 00:00 IMPRESSION: Cardiomegaly without pulmonary edema. There is limited opacification in the right base, pneumonia versus atelectasis. Subsegmental atelectasis in the left base. Chest/Abdomen CTA 02/16/19 11:55 IMPRESSION: Bibasilar consolidation worrisome for pneumonia. No gross CTA evidence of acute pulmonary emboli or thoracic aortic dissection Moderate-sized retrocardiac hiatal hernia. Reflux and aspiration pneumonia should be considered Assessment and Plan - Diagnosis (1) Bilateral pneumonia Is this a current diagnosis for this admission?: Yes Plan: She has mild leukocytosis and this CT chest reported as bibasilar consolidation worrisome for pneumonia. Patient has been started on Zithromax and ceftriaxone. February 17, 2019-at this time awaiting blood cultures. We will continue azithromycin and ceftriaxone until cultures return. Patient has no complaints this morning (2) COPD with exacerbation Is this a current diagnosis for this admission?: Yes Plan: Patient has been started on bronchodilators and Solu-Medrol. February 17, 2019-patient continues on bronchodilators and Solu-Medrol. Lungs are clear but diminished. No adventitious breath sounds at this time. Patient with no complaints. (3) Hypertension Qualifiers: Hypertension type: essential hypertension Qualified Code(s): I10 - Essential (primary) hypertension Is this a current diagnosis for this admission?: Yes Plan: Continue home medication February 17, 2019-chronic stable. Continue home medications this time. (4) Hyperlipidemia Qualifiers: Hyperlipidemia type: unspecified Qualified Code(s): E78.5 - Hyperlipidemia, unspecified Is this a current diagnosis for this admission?: Yes Plan: Continue home medication February 17, 2019-stable continue home medication. (5) Hypokalemia Is this a current diagnosis for this admission?: Yes Plan: February 17, 2019-potassium 3.3 this a.m. Give 40 Meq KCl p.o. times 1 repeat potassium level in a.m. (6) Hyperglycemia Is this a current diagnosis for this admission?: Yes Plan: February 17, 2019-most likely secondary to IV steroid use. We will add insulin sliding scale before meals and at bedtime at this time. Continue to monitor may change plan of care as appropriate. - Time Time Spent with patient: 15-24 minutes Anticipated discharge: Home - Inpatient Certification Based on my medical assessment, after consideration of the patient's comorbidities, presenting symptoms, or acuity I expect that the services needed warrant INPATIENT care.: Yes I certify that my determination is in accordance with my understanding of Medicare's requirements for reasonable and necessary INPATIENT services [42 CFR 412.3e].: Yes Medical Necessity: Other - Continue IV antibiotics await blood cultures
[2019-02-17] MEDS ORDERED: POTASSIUM CHLORIDE 10 MEQ CAPSULE.ER PO ONE (08:30)
[2019-02-17] MEDS: IBUPROFEN 400 MG TABLET PO PRN ×2 (08:40→21:15)
[2019-02-17] MEDS: INSULIN REG, HUMAN 100 UNIT/ML 3 ML VIAL (PYX) SUBCUT SCH ×4 (08:41→21:15)
[2019-02-17] MEDS ORDERED: DOCUSATE SODIUM 100 MG CAPSULE PO PRN (08:49)
[2019-02-17] MEDS ORDERED: CEFTRIAXONE 2 GM/D5W RTU 2 GM/50 ML RTUPB IV SCH (10:00)
[2019-02-17] MEDS: ENOXAPARIN SODIUM INJ 40 MG/0.4 ML DISP.SYRIN SUBCUT SCH (10:09)
[2019-02-17] MEDS: HYDROCHLOROTHIAZIDE 12.5 MG TABLET PO SCH (10:09)
[2019-02-17] MEDS: FAMOTIDINE 20 MG TABLET PO SCH ×2 (10:09→21:15)
[2019-02-17] MEDS: TIOTROPIUM BROMIDE DPI 5 CAP/KIT (18 MCG/CAP) IH SCH (10:09)
[2019-02-17] MEDS ORDERED: VANCOMYCIN HCL 0 MG in DEXTROSE 5%-WATER 250 ML IV NR (12:30)
[2019-02-17] MEDS: CEFTRIAXONE SODIUM 2,000 MG in DEXTROSE 5%-WATER 100 ML IV SCH (12:33)
[2019-02-17] MEDS ORDERED: VANCOMYCIN HCL 1,500 MG in DEXTROSE 5%-WATER 250 ML IV ONE (14:00)
[2019-02-17] MEDS: AZITHROMYCIN 500 MG in DEXTROSE 5%-WATER 250 ML IV SCH (17:05)
[2019-02-17] MEDS ORDERED: SODIUM CHLORIDE NASAL SPRAY 44 ML NASL PRN (18:59)
[2019-02-17] MEDS: VANCOMYCIN HCL 500 MG in DEXTROSE 5%-WATER 100 ML IV SCH (21:16)
[2019-02-17] MEDS: TEMAZEPAM 7.5 MG CAPSULE PO PRN (21:21)
[2019-02-18] MEDS: IPRATROPIUM/ALBUTEROL 0.5-2.5 MG/3 ML AMPUL NEB SCH ×5 (04:07→19:38)
[2019-02-18] MEDS: ACETAMINOPHEN 325 MG TABLET PO PRN ×3 (05:21→22:39)
[2019-02-18] MEDS: METHYLPREDNISOLONE INJ 40 MG/1 ML SDV IV SCH (05:22)
[2019-02-18] MEDS: INSULIN REG, HUMAN 100 UNIT/ML 3 ML VIAL (PYX) SUBCUT SCH ×4 (08:27→22:34)
--- NOTE | 2019-02-18 09:02 | PDOC PROGRESS REPORT ---
Subjective Progress Note for:: 02/18/19 Subjective:: February 17, 2019-no complaints this a.m. February 18, 2019-nonspecific complaints at this time mostly feeling unwell and having some chills at night. Reason For Visit: BILATERAL PNEUMONIA,COPD EXACERBATION Physical Exam Vital Signs: Temp Pulse Resp BP Pulse Ox 98.1 F 96 18 129/66 H 98 02/17/19 23:35 02/18/19 07:40 02/18/19 07:40 02/17/19 23:35 02/18/19 07:40 Intake & Output 02/17/19 02/18/19 02/19/19 06:59 06:59 06:59 Intake Total 50 2170 Output Total 120 Balance -70 2170 Weight 65 kg 68.5 kg General appearance: PRESENT: no acute distress, well-developed, well-nourished Head exam: PRESENT: atraumatic, normocephalic Eye exam: PRESENT: conjunctiva pink, EOMI, PERRLA. ABSENT: scleral icterus Ear exam: PRESENT: normal external ear exam Mouth exam: PRESENT: moist, tongue midline Neck exam: ABSENT: carotid bruit, JVD, lymphadenopathy, thyromegaly Respiratory exam: PRESENT: clear to auscultation douglas. ABSENT: rales, rhonchi, wheezes Cardiovascular exam: PRESENT: RRR. ABSENT: diastolic murmur, rubs, systolic murmur Pulses: PRESENT: normal dorsalis pedis pul Vascular exam: PRESENT: normal capillary refill GI/Abdominal exam: PRESENT: normal bowel sounds, soft. ABSENT: distended, guarding, mass, organolmegaly, rebound, tenderness Rectal exam: PRESENT: deferred Extremities exam: PRESENT: full ROM. ABSENT: calf tenderness, clubbing, pedal edema Musculoskeletal exam: PRESENT: other - Splint to right lower extremity from previous fracture Neurological exam: PRESENT: alert, awake, oriented to person, oriented to place, oriented to time, oriented to situation, CN II-XII grossly intact. ABSENT: motor sensory deficit Psychiatric exam: PRESENT: appropriate affect, normal mood. ABSENT: homicidal ideation, suicidal ideation Skin exam: PRESENT: dry, intact, warm. ABSENT: cyanosis, rash Results Laboratory Results: 02/17/19 05:58 02/17/19 05:58 Impressions: Chest X-Ray 02/16/19 00:00 IMPRESSION: Cardiomegaly without pulmonary edema. There is limited opacification in the right base, pneumonia versus atelectasis. Subsegmental atelectasis in the left base. Chest/Abdomen CTA 02/16/19 11:55 IMPRESSION: Bibasilar consolidation worrisome for pneumonia. No gross CTA evidence of acute pulmonary emboli or thoracic aortic dissection Moderate-sized retrocardiac hiatal hernia. Reflux and aspiration pneumonia should be considered Assessment and Plan - Diagnosis (1) Bilateral pneumonia Is this a current diagnosis for this admission?: Yes Plan: She has mild leukocytosis and this CT chest reported as bibasilar consolidation worrisome for pneumonia. Patient has been started on Zithromax and ceftriaxone. February 17, 2019-at this time awaiting blood cultures. We will continue azithrom ycin and ceftriaxone until cultures return. Patient has no complaints this morning February 18, 2019-blood cultures do show a gram-positive cocci in both bottles. At this time I will repeat her blood cultures. I did start her on vancomycin IV yesterday per pharmacy dosing. Her chills are probably from this bacteremia and should improve as vancomycin is administered. I will continue to follow patient until sensitivities return. (2) COPD with exacerbation Is this a current diagnosis for this admission?: Yes Plan: Patient has been started on bronchodilators and Solu-Medrol. February 17, 2019-patient continues on bronchodilators and Solu-Medrol. Lungs are clear but diminished. No adventitious breath sounds at this time. Patient with no complaints. February 18, 2019-improved. We will continue bronchodilators will DC IV Solu- Medrol placed patient on prednisone 60 mg p.o. daily (3) Hypertension Qualifiers: Hypertension type: essential hypertension Qualified Code(s): I10 - Essential (primary) hypertension Is this a current diagnosis for this admission?: Yes Plan: Continue home medication February 17, 2019-chronic stable. Continue home medications this time. February 18, 2019-chronic but stable. (4) Hyperlipidemia Qualifiers: Hyperlipidemia type: unspecified Qualified Code(s): E78.5 - Hyperlipidemia, unspecified Is this a current diagnosis for this admission?: Yes (5) Hypokalemia Is this a current diagnosis for this admission?: Yes Plan: February 17, 2019-potassium 3.3 this a.m. Give 40 Meq KCl p.o. times 1 repeat pota ssium level in a.m. February 18, 2019-Daily BMPs (6) Hyperglycemia Is this a current diagnosis for this admission?: Yes Plan: February 18, 2019-stable. Suspect this most likely from steroids. DC IV steroids this time place patient on prednisone 6 mg p.o. daily. Continue to monitor - Time Time Spent with patient: 15-24 minutes - Inpatient Certification Based on my medical assessment, after consideration of the patient's comorbidities, presenting symptoms, or acuity I expect that the services needed warrant INPATIENT care.: Yes I certify that my determination is in accordance with my understanding of Medicare's requirements for reasonable and necessary INPATIENT services [42 CFR 412.3e].: Yes Medical Necessity: Other - Blood cultures, IV antibiotics,
[2019-02-18] MEDS: IBUPROFEN 400 MG TABLET PO PRN (10:11)
[2019-02-18] MEDS: PREDNISONE 20 MG TABLET PO SCH (10:12)
[2019-02-18] MEDS: FAMOTIDINE 20 MG TABLET PO SCH ×2 (10:12→22:39)
[2019-02-18] MEDS: ENOXAPARIN SODIUM INJ 40 MG/0.4 ML DISP.SYRIN SUBCUT SCH (10:12)
[2019-02-18] MEDS: HYDROCHLOROTHIAZIDE 12.5 MG TABLET PO SCH (10:12)
[2019-02-18] MEDS: TIOTROPIUM BROMIDE DPI 5 CAP/KIT (18 MCG/CAP) IH SCH (10:13)
[2019-02-18] MEDS: VANCOMYCIN HCL 500 MG in DEXTROSE 5%-WATER 100 ML IV SCH ×2 (10:13→22:40)
[2019-02-18] MEDS: CEFTRIAXONE SODIUM 2,000 MG in DEXTROSE 5%-WATER 100 ML IV SCH (12:46)
[2019-02-18] MEDS: AZITHROMYCIN 500 MG in DEXTROSE 5%-WATER 250 ML IV SCH (18:08)
[2019-02-18] MEDS: OXYCODONE-ACETAMINOPHEN 5-325 MG TABLET PO PRN (18:39)
[2019-02-18] MEDS: PROMETHAZINE HCL 25 MG TABLET PO PRN (18:39)
[2019-02-18] MEDS: TEMAZEPAM 7.5 MG CAPSULE PO PRN (22:39)
[2019-02-19] MEDS: IPRATROPIUM/ALBUTEROL 0.5-2.5 MG/3 ML AMPUL NEB SCH ×6 (00:12→20:37)
[2019-02-19 04:43] LABS: HEMATOCRIT 29.9 % (36.0-47.0); MEAN CORPUSCULAR HEMOGLOBIN 28.4 pg (27.0-33.4); MEAN CORPUSCULAR HGB CONC 33.5 g/dL (32.0-36.0); MEAN CORPUSCULAR VOLUME 85 fl (80-97); PLATELET COUNT 416 10^3/uL (150-450); RED BLOOD COUNT 3.53 10^6/uL (3.72-5.28); WHITE BLOOD COUNT 9.5 10^3/uL (4.0-10.5)
[2019-02-19 05:02] LABS: ANION GAP 6 (5-19); BLOOD UREA NITROGEN 20 mg/dL (7-20); CALCIUM 9.5 mg/dL (8.4-10.2); CARBON DIOXIDE 35 mmol/L (22-30); CHLORIDE 91 mmol/L (98-107); GLUCOSE 100 mg/dL (75-110); POTASSIUM 3.7 mmol/L (3.6-5.0)
[2019-02-19] MEDS: PROMETHAZINE HCL 25 MG TABLET PO PRN ×3 (05:38→18:05)
[2019-02-19] MEDS: OXYCODONE-ACETAMINOPHEN 5-325 MG TABLET PO PRN ×3 (05:38→18:04)
--- NOTE | 2019-02-19 08:18 | PDOC PROGRESS REPORT ---
Subjective Progress Note for:: 02/19/19 Subjective:: February 17, 2019-no complaints this a.m. February 18, 2019-nonspecific complaints at this time mostly feeling unwell and having some chills at night. February 19, 2019-much improved states feeling better less chills through the night. Reason For Visit: BILATERAL PNEUMONIA,COPD EXACERBATION Physical Exam Vital Signs: Temp Pulse Resp BP Pulse Ox 97.9 F 100 18 134/70 H 92 02/18/19 19:53 02/19/19 04:14 02/19/19 04:14 02/19/19 00:03 02/19/19 04:14 Intake & Output 02/18/19 02/19/19 02/20/19 06:59 06:59 06:59 Intake Total 2170 2050 Output Total 1400 Balance 2170 650 Weight 68.5 kg 68.1 kg General appearance: PRESENT: no acute distress, well-developed, well-nourished Neck exam: ABSENT: carotid bruit, JVD, lymphadenopathy, thyromegaly Respiratory exam: PRESENT: clear to auscultation douglas. ABSENT: rales, rhonchi, wheezes Cardiovascular exam: PRESENT: RRR. ABSENT: diastolic murmur, rubs, systolic murmur Pulses: PRESENT: normal dorsalis pedis pul Vascular exam: PRESENT: normal capillary refill GI/Abdominal exam: PRESENT: normal bowel sounds, soft. ABSENT: distended, guarding, mass, organolmegaly, rebound, tenderness Rectal exam: PRESENT: deferred Extremities exam: PRESENT: other - Right lower extremity splint secondary to previous fracture Neurological exam: PRESENT: alert, awake, oriented to person, oriented to place, oriented to time, oriented to situation, CN II-XII grossly intact. ABSENT: motor sensory deficit Psychiatric exam: PRESENT: appropriate affect, normal mood. ABSENT: homicidal ideation, suicidal ideation Skin exam: PRESENT: dry, intact, warm. ABSENT: cyanosis, rash Results Laboratory Results: 02/19/19 03:47 02/19/19 03:47 02/19/19 02/19/19 03:47 03:47 WBC 9.5 RBC 3.53 L Hgb 10.0 L Hct 29.9 L MCV 85 MCH 28.4 MCHC 33.5 RDW 14.0 Plt Count 416 Sodium 132.0 L Potassium 3.7 Chloride 91 L Carbon Dioxide 35 H Anion Gap 6 BUN 20 Creatinine 0.76 Est GFR ( Amer) > 60 Est GFR (Non-Af Amer) > 60 Glucose 100 Calcium 9.5 02/16/19 13:11 Clean Catch Midstream Urine Culture - Final Escherichia Coli Impressions: Chest X-Ray 02/16/19 00:00 IMPRESSION: Cardiomegaly without pulmonary edema. There is limited opacification in the right base, pneumonia versus atelectasis. Subsegmental a telectasis in the left base. Chest/Abdomen CTA 02/16/19 11:55 IMPRESSION: Bibasilar consolidation worrisome for pneumonia. No gross CTA evidence of acute pulmonary emboli or thoracic aortic dissection Moderate-sized retrocardiac hiatal hernia. Reflux and aspiration pneumonia should be considered Assessment and Plan - Diagnosis (1) Bilateral pneumonia Is this a current diagnosis for this admission?: Yes Plan: She has mild leukocytosis and this CT chest reported as bibasilar consolidation worrisome for pneumonia. Patient has been started on Zithromax and ceftriaxone. February 17, 2019-at this time awaiting blood cultures. We will continue azithromycin and ceftriaxone until cultures return. Patient has no complaints this morning February 18, 2019-blood cultures do show a gram-positive cocci in both bottles. At this time I will repeat her blood cultures. I did start her on vancomycin IV yesterday per pharmacy dosing. Her chills are probably from this bacteremia and should improve as vancomycin is administered. I will continue to follow patient until sensitivities return. February 19, 2019-awaiting blood cultures second set. Continue vancomycin at this time. Await sensitivities (2) COPD with exacerbation Is this a current diagnosis for this admission?: Yes Plan: Patient has been started on bronchodilators and Solu-Medrol. February 17, 2019-patient continues on bronchodilators and Solu-Medrol. Lungs are clear but diminished. No adventitious breath sounds at this time. Patient with no complaints. February 18, 2019-improved. We will continue bronchodilators will DC IV Solu- Medrol placed patient on prednisone 60 mg p.o. daily February 19, 2019-improved. Continue bronchodilators and p.o. prednisone (3) Hypertension Qualifiers: Hypertension type: essential hypertension Qualified Code(s): I10 - Essential (primary) hypertension Is this a current diagnosis for this admission?: Yes Plan: Continue home medication February 17, 2019-chronic stable. Continue home medications this time. February 18, 2019-chronic but stable. February 19, 2019-chronic, stable (4) Hyperlipidemia Qualifiers: Hyperlipidemia type: unspecified Qualified Code(s): E78.5 - Hyperlipidemia, unspecified Is this a current diagnosis for this admission?: Yes (5) Hypokalemia Is this a current diagnosis for this admission?: Yes Plan: February 17, 2019-potassium 3.3 this a.m. Give 40 Meq KCl p.o. times 1 repeat potassium level in a.m. February 18, 2019-Daily BMPs February 19, 2019-stable, daily BMP (6) Hyperglycemia Is this a current diagnosis for this admission?: Yes Plan: February 18, 2019-stable. Suspect this most likely from steroids. DC IV steroids this time place patient on prednisone 60 mg p.o. daily. Continue to monitor February 19, 2019-stable. Most likely still from steroids but improving after patient was taken off of IV steroids. (7) Acute and chronic respiratory failure with hypoxia Is this a current diagnosis for this admission?: Yes Plan: February 19, 2019 patient presented to the ER with acute on chronic hypoxic respiratory failure. Patient home with home O2 3 L nasal cannula in the field she was in the low 80s and required 100% nonrebreather. At this time patient is improved and is only requiring her home 3 L nasal cannula maintaining her sats in the mid 90s well. - Time Time Spent with patient: 15-24 minutes - Inpatient Certification Based on my medical assessment, after consideration of the patient's comorbidities, presenting symptoms, or acuity I expect that the services needed warrant INPATIENT care.: Yes I certify that my determination is in accordance with my understanding of Medicare's requirements for reasonable and necessary INPATIENT services [42 CFR 412.3e].: Yes Medical Necessity: Other - IV antibiotics
[2019-02-19] MEDS: INSULIN REG, HUMAN 100 UNIT/ML 3 ML VIAL (PYX) SUBCUT SCH ×4 (08:38→21:43)
[2019-02-19] MEDS: FAMOTIDINE 20 MG TABLET PO SCH ×2 (10:10→21:47)
[2019-02-19] MEDS: HYDROCHLOROTHIAZIDE 12.5 MG TABLET PO SCH (10:10)
[2019-02-19] MEDS: VANCOMYCIN HCL 500 MG in DEXTROSE 5%-WATER 100 ML IV SCH (10:10)
[2019-02-19] MEDS: PREDNISONE 20 MG TABLET PO SCH (10:10)
[2019-02-19] MEDS: TIOTROPIUM BROMIDE DPI 5 CAP/KIT (18 MCG/CAP) IH SCH (10:15)
[2019-02-19] MEDS: ENOXAPARIN SODIUM INJ 40 MG/0.4 ML DISP.SYRIN SUBCUT SCH (10:16)
[2019-02-19 10:44] LABS: VANCOMYCIN,TROUGH 9.6 ug/mL (5.0-20.0)
[2019-02-19] MEDS: CEFTRIAXONE SODIUM 2,000 MG in DEXTROSE 5%-WATER 100 ML IV SCH (11:49)
[2019-02-19] MEDS: AZITHROMYCIN 500 MG in DEXTROSE 5%-WATER 250 ML IV SCH (18:05)
[2019-02-19] MEDS: TEMAZEPAM 7.5 MG CAPSULE PO PRN (21:47)
[2019-02-19] MEDS: VANCOMYCIN HCL 1,000 MG in DEXTROSE 5%-WATER 250 ML IV SCH (21:48)
[2019-02-20] MEDS: IPRATROPIUM/ALBUTEROL 0.5-2.5 MG/3 ML AMPUL NEB SCH ×6 (00:13→20:09)
[2019-02-20 05:04] LABS: HEMATOCRIT 31.2 % (36.0-47.0); HEMOGLOBIN 10.4 g/dL (12.0-15.5); MEAN CORPUSCULAR HEMOGLOBIN 28.4 pg (27.0-33.4); MEAN CORPUSCULAR HGB CONC 33.4 g/dL (32.0-36.0); MEAN CORPUSCULAR VOLUME 85 fl (80-97); PLATELET COUNT 401 10^3/uL (150-450); RED BLOOD COUNT 3.66 10^6/uL (3.72-5.28); RED CELL DISTRIBUTION WIDTH 13.8 % (11.5-14.0); WHITE BLOOD COUNT 9.3 10^3/uL (4.0-10.5)
[2019-02-20 05:12] LABS: BLOOD UREA NITROGEN 19 mg/dL (7-20); CALCIUM 9.3 mg/dL (8.4-10.2); CARBON DIOXIDE 36 mmol/L (22-30); GLUCOSE 94 mg/dL (75-110); POTASSIUM 3.7 mmol/L (3.6-5.0)
[2019-02-20 05:18] LABS: ANION GAP 5 (5-19); CHLORIDE 91 mmol/L (98-107)
[2019-02-20] MEDS: OXYCODONE-ACETAMINOPHEN 5-325 MG TABLET PO PRN ×3 (06:25→17:50)
[2019-02-20] MEDS: PROMETHAZINE HCL 25 MG TABLET PO PRN ×3 (06:27→17:56)
[2019-02-20] MEDS: INSULIN REG, HUMAN 100 UNIT/ML 3 ML VIAL (PYX) SUBCUT SCH ×4 (07:39→21:09)
--- NOTE | 2019-02-20 08:31 | PDOC PROGRESS REPORT ---
Subjective Progress Note for:: 02/20/19 Subjective:: February 17, 2019-no complaints this a.m. February 18, 2019-nonspecific complaints at this time mostly feeling unwell and having some chills at night. February 19, 2019-much improved states feeling better less chills through the night. February 20, 2019-no complaints this a.m. Reason For Visit: BILATERAL PNEUMONIA,COPD EXACERBATION Physical Exam Vital Signs: Temp Pulse Resp BP Pulse Ox 98.2 F 98 18 142/68 H 95 02/20/19 07:25 02/20/19 07:38 02/20/19 07:38 02/20/19 07:25 02/20/19 07:38 Intake & Output 02/19/19 02/20/19 02/21/19 06:59 06:59 06:59 Intake Total 2050 1660 Output Total 1400 1700 Balance 650 -40 Weight 68.1 kg 68.4 kg General appearance: PRESENT: no acute distress, well-developed, well-nourished Head exam: PRESENT: atraumatic, normocephalic Eye exam: PRESENT: conjunctiva pink, EOMI, PERRLA. ABSENT: scleral icterus Ear exam: PRESENT: normal external ear exam Mouth exam: PRESENT: moist, tongue midline Neck exam: ABSENT: carotid bruit, JVD, lymphadenopathy, thyromegaly Respiratory exam: PRESENT: clear to auscultation douglas. ABSENT: rales, rhonchi, wheezes Cardiovascular exam: PRESENT: RRR. ABSENT: diastolic murmur, rubs, systolic murmur Pulses: PRESENT: normal dorsalis pedis pul Vascular exam: PRESENT: normal capillary refill GI/Abdominal exam: PRESENT: normal bowel sounds, soft. ABSENT: distended, guarding, mass, organolmegaly, rebound, tenderness Rectal exam: PRESENT: deferred Extremities exam: PRESENT: full ROM, other - Brace on right leg from previous fracture. ABSENT: calf tenderness, clubbing, pedal edema Neurological exam: PRESENT: alert, awake, oriented to person, oriented to place, oriented to time, oriented to situation, CN II-XII grossly intact. ABSENT: motor sensory deficit Psychiatric exam: PRESENT: appropriate affect, normal mood. ABSENT: homicidal ideation, suicidal ideation Skin exam: PRESENT: dry, intact, warm. ABSENT: cyanosis, rash Results Laboratory Results: 02/20/19 03:33 02/20/19 03:33 02/20/19 02/20/19 03:33 03:33 WBC 9.3 RBC 3.66 L Hgb 10.4 L Hct 31.2 L MCV 85 MCH 28.4 MCHC 33.4 RDW 13.8 Plt Count 401 Sodium 131.9 L Potassium 3.7 Chloride 91 L Carbon Dioxide 36 H Anion Gap 5 BUN 19 Creatinine 0.67 Est GFR ( Amer) > 60 Est GFR (Non-Af Amer) > 60 Glucose 94 Calcium 9.3 02/16/19 11:52 Blood Blood Culture - Final Staphylococcus Hominis Impressions: Chest X-Ray 02/16/19 00:00 IMPRESSION: Cardiomegaly without pulmonary edema. There is limited opacification in the right base, pneumonia versus atelectasis. Subsegmental atelectasis in the left base. Chest/Abdomen CTA 02/16/19 11:55 IMPRESSION: Bibasilar consolidation worrisome for pneumonia. No gross CTA evidence of acute pulmonary emboli or thoracic aortic dissection Moderate-sized retrocardiac hiatal hernia. Reflux and aspiration pneumonia should be considered Assessment and Plan - Diagnosis (1) Bilateral pneumonia Is this a current diagnosis for this admission?: Yes Plan: She has mild leukocytosis and this CT chest reported as bibasilar consolidation worrisome for pneumonia. Patient has been started on Zithromax and ceftriaxone. February 17, 2019-at this time awaiting blood cultures. We will continue azithromycin and ceftriaxone until cultures return. Patient has no complaints this morning February 18, 2019-blood cultures do show a gram-positive cocci in both bottles. At this time I will repeat her blood cultures. I did start her on vancomycin IV yesterday per pharmacy dosing. Her chills are probably from this bacteremia and should improve as vancomycin is administered. I will continue to follow patient until sensitivities return. February 19, 2019-awaiting blood cultures second set. Continue vancomycin at this time. Await sensitivities February 20, 2019-blood cultures returned showing staph hominis that is sensitive to vancomycin. I DC'd Rocephin and azithromycin will continue vancomycin at this time. (2) COPD with exacerbation Is this a current diagnosis for this admission?: Yes Plan: Patient has been started on bronchodilators and Solu-Medrol. February 17, 2019-patient continues on bronchodilators and Solu-Medrol. Lungs are clear but diminished. No adventitious breath sounds at this time. Patient with no complaints. February 18, 2019-improved. We will continue bronchodilators will DC IV Solu- Medrol placed patient on prednisone 60 mg p.o. daily February 19, 2019-improved. Continue bronchodilators and p.o. prednisone February 20, 2019-stable. Continue bronchodilators and p.o. prednisone. (3) Hypertension Qualifiers: Hypertension type: essential hypertension Qualified Code(s): I10 - Essential (primary) hypertension Is this a current diagnosis for this admission?: Yes Plan: Continue home medication February 17, 2019-chronic stable. Continue home medications this time. February 18, 2019-chronic but stable. February 19, 2019-chronic, stable February 20, 2019-chronic stable (4) Hyperlipidemia Qualifiers: Hyperlipidemia type: unspecified Qualified Code(s): E78.5 - Hyperlipidemia, unspecified Is this a current diagnosis for this admission?: Yes (5) Hypokalemia Is this a current diagnosis for this admission?: Yes Plan: February 17, 2019-potassium 3.3 this a.m. Give 40 Meq KCl p.o. times 1 repeat potassium level in a.m. February 18, 2019-Daily BMPs February 19, 2019-stable, daily BMP February 20, 2019-resolved (6) Hyperglycemia Is this a current diagnosis for this admission?: Yes Plan: February 18, 2019-stable. Suspect this most likely from steroids. DC IV steroids this time place patient on prednisone 60 mg p.o. daily. Continue to monitor February 19, 2019-stable. Most likely still from steroids but improving after patient was taken off of IV steroids. February 20, 2018-stable. Continue to follow (7) Acute and chronic respiratory failure with hypoxia Is this a current diagnosis for this admission?: Yes Plan: February 19, 2019 patient presented to the ER with acute on chronic hypoxic respiratory failure. Patient home with home O2 3 L nasal cannula in the field she was in the low 80s and required 100% nonrebreather. At this time patient is improved and is only requiring her home 3 L nasal cannula maintaining her sats in the mid 90s well. February 20, 2019-patient continues to show stable O2 sats on home dose of oxygen 3 L nasal cannula. Continue to monitor - Time Time Spent with patient: 15-24 minutes - Inpatient Certification Based on my medical assessment, after consideration of the patient's comorbidities, presenting symptoms, or acuity I expect that the services needed warrant INPATIENT care.: Yes I certify that my determination is in accordance with my understanding of Medicare's requirements for reasonable and necessary INPATIENT services [42 CFR 412.3e].: Yes Medical Necessity: Other - IV antibiotics
[2019-02-20] MEDS: PREDNISONE 20 MG TABLET PO SCH (10:10)
[2019-02-20] MEDS: ENOXAPARIN SODIUM INJ 40 MG/0.4 ML DISP.SYRIN SUBCUT SCH (10:10)
[2019-02-20] MEDS: VANCOMYCIN HCL 1,000 MG in DEXTROSE 5%-WATER 250 ML IV SCH ×2 (10:10→21:09)
[2019-02-20] MEDS: HYDROCHLOROTHIAZIDE 12.5 MG TABLET PO SCH (10:10)
[2019-02-20] MEDS: FAMOTIDINE 20 MG TABLET PO SCH ×2 (10:10→21:09)
[2019-02-20] MEDS: TIOTROPIUM BROMIDE DPI 5 CAP/KIT (18 MCG/CAP) IH SCH (10:11)
[2019-02-20] MEDS: TEMAZEPAM 7.5 MG CAPSULE PO PRN (21:09)
[2019-02-20] MEDS: ACETAMINOPHEN 325 MG TABLET PO PRN (21:10)
[2019-02-21] MEDS: IPRATROPIUM/ALBUTEROL 0.5-2.5 MG/3 ML AMPUL NEB SCH ×5 (01:19→16:18)
[2019-02-21] MEDS: OXYCODONE-ACETAMINOPHEN 5-325 MG TABLET PO PRN ×4 (02:19→19:37)
[2019-02-21] MEDS: PROMETHAZINE HCL 25 MG TABLET PO PRN ×4 (02:20→19:38)
[2019-02-21 04:33] LABS: HEMATOCRIT 31.1 % (36.0-47.0); HEMOGLOBIN 10.3 g/dL (12.0-15.5); MEAN CORPUSCULAR HEMOGLOBIN 28.2 pg (27.0-33.4); MEAN CORPUSCULAR HGB CONC 32.9 g/dL (32.0-36.0); MEAN CORPUSCULAR VOLUME 86 fl (80-97); PLATELET COUNT 390 10^3/uL (150-450); RED BLOOD COUNT 3.64 10^6/uL (3.72-5.28); RED CELL DISTRIBUTION WIDTH 13.7 % (11.5-14.0); WHITE BLOOD COUNT 9.8 10^3/uL (4.0-10.5)
[2019-02-21 05:00] LABS: ANION GAP 5 (5-19); BLOOD UREA NITROGEN 19 mg/dL (7-20); CALCIUM 9.3 mg/dL (8.4-10.2); CARBON DIOXIDE 37 mmol/L (22-30); CHLORIDE 92 mmol/L (98-107); GLUCOSE 92 mg/dL (75-110); POTASSIUM 3.6 mmol/L (3.6-5.0)
--- NOTE | 2019-02-21 09:05 | PDOC PROGRESS REPORT ---
Subjective Progress Note for:: 02/21/19 Subjective:: February 17, 2019-no complaints this a.m. February 18, 2019-nonspecific complaints at this time mostly feeling unwell and having some chills at night. February 19, 2019-much improved states feeling better less chills through the night. February 20, 2019-no complaints this a.m. February 21, 2019-no complaints this a.m. Reason For Visit: BILATERAL PNEUMONIA,COPD EXACERBATION Physical Exam Vital Signs: Temp Pulse Resp BP Pulse Ox 98.4 F 89 20 125/66 93 02/21/19 07:52 02/21/19 07:52 02/21/19 07:52 02/21/19 07:52 02/21/19 07:52 Intake & Output 02/20/19 02/21/19 02/22/19 06:59 06:59 06:59 Intake Total 1660 1442 Output Total 1700 2300 Balance -40 -858 Weight 68.4 kg 68.5 kg General appearance: PRESENT: no acute distress, well-developed, well-nourished Neck exam: ABSENT: carotid bruit, JVD, lymphadenopathy, thyromegaly Respiratory exam: PRESENT: clear to auscultation douglas. ABSENT: rales, rhonchi, wheezes Cardiovascular exam: PRESENT: RRR. ABSENT: diastolic murmur, rubs, systolic murmur Pulses: PRESENT: +1 pedal pulses bilateral Vascular exam: PRESENT: normal capillary refill GI/Abdominal exam: PRESENT: normal bowel sounds, soft. ABSENT: distended, g uarding, mass, organolmegaly, rebound, tenderness Extremities exam: PRESENT: full ROM, other - Brace on right leg secondary to previous fracture. ABSENT: calf tenderness, clubbing, pedal edema Neurological exam: PRESENT: alert, awake, oriented to person, oriented to place, oriented to time, oriented to situation, CN II-XII grossly intact. ABSENT: motor sensory deficit Psychiatric exam: PRESENT: appropriate affect, normal mood. ABSENT: homicidal ideation, suicidal ideation Results Laboratory Results: 02/21/19 04:01 02/21/19 04:01 02/21/19 02/21/19 04:01 04:01 WBC 9.8 RBC 3.64 L Hgb 10.3 L Hct 31.1 L MCV 86 MCH 28.2 MCHC 32.9 RDW 13.7 Plt Count 390 Sodium 133.7 L Potassium 3.6 Chloride 92 L Carbon Dioxide 37 H Anion Gap 5 BUN 19 Creatinine 0.70 Est GFR ( Amer) > 60 Est GFR (Non-Af Amer) > 60 Glucose 92 Calcium 9.3 02/16/19 11:52 Blood Blood Culture - Final Staphylococcus Hominis Impressions: Chest X-Ray 02/16/19 00:00 IMPRESSION: Cardiomegaly without pulmonary edema. There is limited o pacification in the right base, pneumonia versus atelectasis. Subsegmental atelectasis in the left base. Chest/Abdomen CTA 02/16/19 11:55 IMPRESSION: Bibasilar consolidation worrisome for pneumonia. No gross CTA evidence of acute pulmonary emboli or thoracic aortic dissection Moderate-sized retrocardiac hiatal hernia. Reflux and aspiration pneumonia should be considered Assessment and Plan - Diagnosis (1) Bilateral pneumonia Is this a current diagnosis for this admission?: Yes Plan: She has mild leukocytosis and this CT chest reported as bibasilar consolidation worrisome for pneumonia. Patient has been started on Zithromax and ceftriaxone. February 17, 2019-at this time awaiting blood cultures. We will continue azithromycin and ceftriaxone until cultures return. Patient has no complaints this morning February 18, 2019-blood cultures do show a gram-positive cocci in both bottles. At this time I will repeat her blood cultures. I did start her on vancomycin IV yesterday per pharmacy dosing. Her chills are probably from this bacteremia and should improve as vancomycin is administered. I will continue to follow patient until sensitivities return. February 19, 2019-awaiting blood cultures second set. Continue vancomycin at this time. Await sensitivities February 20, 2019-blood cultures returned showing staph hominis that is sensitive to vancomycin. I DC'd Rocephin and azithromycin will continue vancomycin at this time. February 21, 2019-cultures showed staph hominis continue vancomycin. Patient to go to short-term rehab will continue vancomycin for a total of 10 days (2) COPD with exacerbation Is this a current diagnosis for this admission?: Yes Plan: Patient has been started on bronchodilators and Solu-Medrol. February 17, 2019-patient continues on bronchodilators and Solu-Medrol. Lungs are clear but diminished. No adventitious breath sounds at this time. Patient with no complaints. February 18, 2019-improved. We will continue bronchodilators will DC IV Solu- Medrol placed patient on prednisone 60 mg p.o. daily February 19, 2019-improved. Continue bronchodilators and p.o. prednisone February 20, 2019-stable. Continue bronchodilators and p.o. prednisone. February 21, 2019-continue bronchodilators p.o. prednisone. Will decrease prednisone to 40 mill grams p.o. daily (3) Hypertension Qualifiers: Hypertension type: essential hypertension Qualified Code(s): I10 - Essential (primary) hypertension Is this a current diagnosis for this admission?: Yes Plan: Continue home medication February 17, 2019-chronic stable. Continue home medications this time. February 18, 2019-chronic but stable. February 19, 2019-chronic, stable February 20, 2019-chronic stable February 21, 2019 stable (4) Hyperlipidemia Qualifiers: Hyperlipidemia type: unspecified Qualified Code(s): E78.5 - Hyperlipidemia, unspecified Is this a current diagnosis for this admission?: Yes (5) Hypokalemia Is this a current diagnosis for this admission?: Yes Plan: February 17, 2019-potassium 3.3 this a.m. Give 40 Meq KCl p.o. times 1 repeat potassium level in a.m. February 18, 2019-Daily BMPs February 19, 2019-stable, daily BMP February 20, 2019-resolved February 21, 2019-resolved DC daily BMPs (6) Hyperglycemia Is this a current diagnosis for this admission?: Yes Plan: February 18, 2019-stable. Suspect this most likely from steroids. DC IV steroids this time place patient on prednisone 60 mg p.o. daily. Continue to monitor February 19, 2019-stable. Most likely still from steroids but improving after patient was taken off of IV steroids. February 20, 2018-stable. Continue to follow February 21, 2019-stable continue to follow patient still taking steroids. Decrease steroids to 40 mill grams p.o. daily today (7) Acute and chronic respiratory failure with hypoxia Is this a current diagnosis for this admission?: Yes Plan: February 19, 2019 patient presented to the ER with acute on chronic hypoxic respiratory failure. Patient home with home O2 3 L nasal cannula in the field she was in the low 80s and required 100% nonrebreather. At this time patient is improved and is only requiring her home 3 L nasal cannula maintaining her sats in the mid 90s well. February 20, 2019-patient continues to show stable O2 sats on home dose of oxygen 3 L nasal cannula. Continue to monitor February 21, 2019-stable continue on O2 3 days nasal cannula (8) Decreased mobility Is this a current diagnosis for this admission?: Yes Plan: February 21, 2019-have patient seen by physical therapy. Plan for discharge to short-term rehab. - Time Time Spent with patient: 15-24 minutes - Inpatient Certification Based on my medical assessment, after consideration of the patient's comorbidities, presenting symptoms, or acuity I expect that the services needed warrant INPATIENT care.: Yes I certify that my determination is in accordance with my understanding of Medicare's requirements for reasonable and necessary INPATIENT services [42 CFR 412.3e].: Yes Medical Necessity: Other - IV ABX
[2019-02-21] MEDS: INSULIN REG, HUMAN 100 UNIT/ML 3 ML VIAL (PYX) SUBCUT SCH ×4 (09:12→22:27)
[2019-02-21] MEDS: HYDROCHLOROTHIAZIDE 12.5 MG TABLET PO SCH (09:17)
[2019-02-21] MEDS: FAMOTIDINE 20 MG TABLET PO SCH ×2 (09:17→22:26)
[2019-02-21] MEDS: PREDNISONE 20 MG TABLET PO SCH (09:17)
[2019-02-21] MEDS: TIOTROPIUM BROMIDE DPI 5 CAP/KIT (18 MCG/CAP) IH SCH (09:19)
[2019-02-21] MEDS: ENOXAPARIN SODIUM INJ 40 MG/0.4 ML DISP.SYRIN SUBCUT SCH (09:19)
[2019-02-21] MEDS: VANCOMYCIN HCL 1,000 MG in DEXTROSE 5%-WATER 250 ML IV SCH ×2 (09:21→22:26)
[2019-02-21 10:19] LABS: VANCOMYCIN,TROUGH 15.9 ug/mL (5.0-20.0)
[2019-02-21] MEDS ORDERED: IPRATROPIUM/ALBUTEROL 0.5-2.5 MG/3 ML AMPUL NEB PRN (17:30)
[2019-02-21] MEDS: TEMAZEPAM 7.5 MG CAPSULE PO PRN (22:26)
[2019-02-22] MEDS: OXYCODONE-ACETAMINOPHEN 5-325 MG TABLET PO PRN ×3 (03:36→21:15)
[2019-02-22] MEDS: PROMETHAZINE HCL 25 MG TABLET PO PRN ×3 (03:37→21:15)
[2019-02-22] MEDS: INSULIN REG, HUMAN 100 UNIT/ML 3 ML VIAL (PYX) SUBCUT SCH ×4 (07:40→21:17)
--- NOTE | 2019-02-22 08:30 | PDOC PROGRESS REPORT ---
Subjective Progress Note for:: 02/22/19 Subjective:: February 17, 2019-no complaints this a.m. February 18, 2019-nonspecific complaints at this time mostly feeling unwell and having some chills at night. February 19, 2019-much improved states feeling better less chills through the night. February 20, 2019-no complaints this a.m. February 21, 2019-no complaints this a.m. February 22, 2019-no complaints this a.m. Reason For Visit: BILATERAL PNEUMONIA,COPD EXACERBATION Physical Exam Vital Signs: Temp Pulse Resp BP Pulse Ox 98.0 F 96 20 116/58 L 92 02/22/19 07:35 02/22/19 07:35 02/22/19 07:35 02/22/19 07:35 02/22/19 07:35 Intake & Output 02/21/19 02/22/19 02/23/19 06:59 06:59 06:59 Intake Total 1442 2070 Output Total 2300 600 Balance -858 1470 Weight 68.5 kg 67.5 kg General appearance: PRESENT: no acute distress, well-developed, well-nourished Neck exam: ABSENT: carotid bruit, JVD, lymphadenopathy, thyromegaly Respiratory exam: PRESENT: clear to auscultation douglas. ABSENT: rales, rhonchi, wheezes Cardiovascular exam: PRESENT: RRR. ABSENT: diastolic murmur, rubs, systolic murmur Pulses: PRESENT: +1 pedal pulses bilateral GI/Abdominal exam: PRESENT: normal bowel sounds, soft. ABSENT: distended, guarding, mass, organolmegaly, rebound, tenderness Extremities exam: PRESENT: full ROM, other - Right leg splint secondary to previous fracture. ABSENT: calf tenderness, clubbing, pedal edema Neurological exam: PRESENT: alert, awake, oriented to person, oriented to place, oriented to time, oriented to situation, CN II-XII grossly intact. ABSENT: motor sensory deficit Psychiatric exam: PRESENT: appropriate affect, normal mood. ABSENT: homicidal ideation, suicidal ideation Skin exam: PRESENT: dry, intact, warm. ABSENT: cyanosis, rash Results Laboratory Results: 02/21/19 04:01 02/21/19 04:01 Impressions: Chest X-Ray 02/16/19 00:00 IMPRESSION: Cardiomegaly without pulmonary edema. There is limited opacification in the right base, pneumonia versus atelectasis. Subsegmental atelectasis in the left base. Chest/Abdomen CTA 02/16/19 11:55 IMPRESSION: Bibasilar consolidation worrisome for pneumonia. No gross CTA evidence of acute pulmonary emboli or thoracic aortic dissection Moderate-sized retrocardiac hiatal hernia. Reflux and aspiration pneumonia should be considered Assessment and Plan - Diagnosis (1) Bilateral pneumonia Is this a current diagnosis for this admission?: Yes Plan: She has mild leukocytosis and this CT chest reported as bibasilar consolidation worrisome for pneumonia. Patient has been started on Zithromax and ceftriaxone. February 17, 2019-at this time awaiting blood cultures. We will continue azithromycin and ceftriaxone until cultures return. Patient has no complaints this morning February 18, 2019-blood cultures do show a gram-positive cocci in both bottles. At this time I will repeat her blood cultures. I did start her on vancomycin IV yesterday per pharmacy dosing. Her chills are probably from this bacteremia and should improve as vancomycin is administered. I will continue to follow patient until sensitivities return. February 19, 2019-awaiting blood cultures second set. Continue vancomycin at this time. Await sensitivities February 20, 2019-blood cultures returned showing staph hominis that is sensitive to vancomycin. I DC'd Rocephin and azithromycin will continue vancomycin at this time. February 21, 2019-cultures showed staph hominis continue vancomycin. Patient to go to short-term rehab will continue vancomycin for a total of 10 days February 22, 2019 patient continues on vancomycin. Patient will go to short-term rehab continue vancomycin for total 10 days. (2) COPD with exacerbation Is this a current diagnosis for this admission?: Yes Plan: Patient has been started on bronchodilators and Solu-Medrol. February 17, 2019-patient continues on bronchodilators and Solu-Medrol. Lungs are clear but diminished. No adventitious breath sounds at this time. Patient with no complaints. February 18, 2019-improved. We will continue bronchodilators will DC IV Solu- Medrol placed patient on prednisone 60 mg p.o. daily February 19, 2019-improved. Continue bronchodilators and p.o. prednisone February 20, 2019-stable. Continue bronchodilators and p.o. prednisone. February 21, 2019-continue bronchodilators p.o. prednisone. Will decrease prednisone to 40 mill grams p.o. daily February 22, 2019-stable continue bronchodilators and p.o. prednisone (3) Hypertension Qualifiers: Hypertension type: essential hypertension Qualified Code(s): I10 - Essential (primary) hypertension Is this a current diagnosis for this admission?: Yes Plan: Continue home medication February 17, 2019-chronic stable. Continue home medications this time. February 18, 2019-chronic but stable. February 19, 2019-chronic, stable February 20, 2019-chronic stable February 21, 2019 stable February 22, 2019-stable (4) Hyperlipidemia Qualifiers: Hyperlipidemia type: unspecified Qualified Code(s): E78.5 - Hyperlipidemia, unspecified Is this a current diagnosis for this admission?: Yes (5) Hypokalemia Is this a current diagnosis for this admission?: Yes Plan: February 17, 2019-potassium 3.3 this a.m. Give 40 Meq KCl p.o. times 1 repeat p otassium level in a.m. February 18, 2019-Daily BMPs February 19, 2019-stable, daily BMP February 20, 2019-resolved February 21, 2019-resolved DC daily BMPs (6) Hyperglycemia Is this a current diagnosis for this admission?: Yes Plan: February 18, 2019-stable. Suspect this most likely from steroids. DC IV steroids this time place patient on prednisone 60 mg p.o. daily. Continue to monitor February 19, 2019-stable. Most likely still from steroids but improving after patient was taken off of IV steroids. February 20, 2018-stable. Continue to follow February 21, 2019-stable continue to follow patient still taking steroids. Decrease steroids to 40 mill grams p.o. daily today February 22, 2019-stable (7) Acute and chronic respiratory failure with hypoxia Is this a current diagnosis for this admission?: Yes Plan: February 19, 2019 patient presented to the ER with acute on chronic hypoxic respiratory failure. Patient home with home O2 3 L nasal cannula in the field she was in the low 80s and required 100% nonrebreather. At this time patient is improved and is only requiring her home 3 L nasal cannula maintaining her sats in the mid 90s well. February 20, 2019-patient continues to show stable O2 sats on home dose of oxygen 3 L nasal cannula. Continue to monitor February 21, 2019-stable continue on O2 3 days nasal cannula February 22, 2019-stable continues on O2 3 L per nasal cannula (8) Decreased mobility Is this a current diagnosis for this admission?: Yes Plan: February 21, 2019-have patient seen by physical therapy. Plan for discharge to short-term rehab. February 22, 2019-patient seen by physical therapy yesterday. Patient was able to walk with walker without problems and also set up in her chair for total of 2 hours. Patient will go for short-term rehab tomorrow - Time Time Spent with patient: 15-24 minutes - Inpatient Certification Based on my medical assessment, after consideration of the patient's comorbidi ties, presenting symptoms, or acuity I expect that the services needed warrant INPATIENT care.: Yes I certify that my determination is in accordance with my understanding of [employer] [employer]'s requirements for reasonable and necessary INPATIENT services [42 CFR 412.3e].: Yes Medical Necessity: Other - IV vancomycin
[2019-02-22] MEDS: VANCOMYCIN HCL 1,000 MG in DEXTROSE 5%-WATER 250 ML IV SCH ×2 (09:19→21:17)
[2019-02-22] MEDS: HYDROCHLOROTHIAZIDE 12.5 MG TABLET PO SCH (09:19)
[2019-02-22] MEDS: PREDNISONE 20 MG TABLET PO SCH (09:19)
[2019-02-22] MEDS: FAMOTIDINE 20 MG TABLET PO SCH ×2 (09:19→21:15)
[2019-02-22] MEDS: ENOXAPARIN SODIUM INJ 40 MG/0.4 ML DISP.SYRIN SUBCUT SCH (09:20)
[2019-02-22] MEDS: TIOTROPIUM BROMIDE DPI 5 CAP/KIT (18 MCG/CAP) IH SCH (09:21)
[2019-02-22] MEDS ORDERED: ACYCLOVIR 5% OINTMENT 15 GM TP PRN ×2 (10:00→12:00)
--- NOTE | 2019-02-22 17:32 | RADIOLOGY REPORT (SQ) ---
EXAM DESCRIPTION: KUB/ABDOMEN (SINGLE VIEW) COMPLETED DATE/TIME: 02/22/2019 5:16 pm REASON FOR STUDY: constipation COMPARISON: None. NUMBER OF VIEWS: One view. TECHNIQUE: Supine radiographic image of the abdomen acquired. LIMITATIONS: None. FINDINGS: BOWEL GAS PATTERN: Normal bowel gas pattern. No dilated loops. Prominent stool throughout the colon. CALCIFICATIONS: No suspicious calcifications. SOFT TISSUES: No gross mass or suggestion of organomegaly. HARDWARE: None in the abdomen. BONES: No acute fracture. No worrisome bone lesions. OTHER: No other significant finding. IMPRESSION: NO RADIOGRAPHIC EVIDENCE FOR ACUTE ABDOMINAL DISEASE. PROMINENT STOOL THROUGHOUT THE CO DMITRY CONSISTENT WITH CONSTIPATION. TECHNICAL DOCUMENTATION: JOB ID: [id number] [employer]- All Rights Reserved Reading location - IP/workstation name: [email or web address]
[2019-02-22] MEDS ORDERED: BISACODYL 10 MG SUPP.RECT PR ONE (19:00)
[2019-02-22] MEDS: TEMAZEPAM 7.5 MG CAPSULE PO PRN (21:20)
[2019-02-23] MEDS: OXYCODONE-ACETAMINOPHEN 5-325 MG TABLET PO PRN ×4 (03:01→22:06)
[2019-02-23] MEDS: PROMETHAZINE HCL 25 MG TABLET PO PRN ×4 (03:02→22:06)
[2019-02-23] MEDS: INSULIN REG, HUMAN 100 UNIT/ML 3 ML VIAL (PYX) SUBCUT SCH ×4 (08:17→21:56)
--- NOTE | 2019-02-23 08:21 | PDOC PROGRESS REPORT ---
Subjective Progress Note for:: 02/23/19 Subjective:: February 17, 2019-no complaints this a.m. February 18, 2019-nonspecific complaints at this time mostly feeling unwell and having some chills at night. February 19, 2019-much improved states feeling better less chills through the night. February 20, 2019-no complaints this a.m. February 21, 2019-no complaints this a.m. February 22, 2019-no complaints this a.m. February 23, 2019-no complaints this a.m. Reason For Visit: BILATERAL PNEUMONIA,COPD EXACERBATION Physical Exam Vital Signs: Temp Pulse Resp BP Pulse Ox 97.4 F 88 16 121/55 L 92 02/22/19 23:15 02/22/19 23:15 02/22/19 23:15 02/22/19 23:15 02/23/19 01:25 Intake & Output 02/22/19 02/23/19 02/24/19 06:59 06:59 06:59 Intake Total 2070 2560 Output Total 600 Balance 1470 2560 Weight 67.5 kg 67.5 kg General appearance: PRESENT: no acute distress, well-developed, well-nourished Neck exam: ABSENT: carotid bruit, JVD, lymphadenopathy, thyromegaly Respiratory exam: PRESENT: clear to auscultation douglas. ABSENT: rales, rhonchi, wheezes Cardiovascular exam: PRESENT: RRR. ABSENT: diastolic murmur, rubs, systolic murmur Pulses: PRESENT: +1 pedal pulses bilateral GI/Abdominal exam: PRESENT: normal bowel sounds, soft. ABSENT: distended, guarding, mass, organolmegaly, rebound, tenderness Extremities exam: PRESENT: full ROM. ABSENT: calf tenderness, clubbing, pedal edema Neurological exam: PRESENT: alert, awake, oriented to person, oriented to place, oriented to time, oriented to situation, CN II-XII grossly intact. ABSENT: motor sensory deficit Psychiatric exam: PRESENT: appropriate affect, normal mood. ABSENT: homicidal ideation, suicidal ideation Skin exam: PRESENT: dry, intact, warm. ABSENT: cyanosis, rash Results Laboratory Results: 02/21/19 04:01 02/21/19 04:01 Impressions: Chest X-Ray 02/16/19 00:00 IMPRESSION: Cardiomegaly without pulmonary edema. There is limited opacification in the right base, pneumonia versus atelectasis. Subsegmental atelectasis in the left base. Chest/Abdomen CTA 02/16/19 11:55 IMPRESSION: Bibasilar consolidation worrisome for pneumonia. No gross CTA evidence of acute pulmonary emboli or thoracic aortic dissection Moderate-sized retrocardiac hiatal hernia. Reflux and aspiration pneumonia should be considered KUB X-Ray 02/22/19 00:00 IMPRESSION: NO RADIOGRAPHIC EVIDENCE FOR ACUTE ABDOMINAL DISEASE. PROMINENT STOOL THROUGHOUT THE COLON CONSISTENT WITH CONSTIPATION. Assessment and Plan - Diagnosis (1) Bilateral pneumonia Is this a current diagnosis for this admission?: Yes Plan: She has mild leukocytosis and this CT chest reported as bibasilar consolidation worrisome for pneumonia. Patient has been started on Zithromax and ceftriaxone. February 17, 2019-at this time awaiting blood cultures. We will continue azithromycin and ceftriaxone until cultures return. Patient has no complaints this morning February 18, 2019-blood cultures do show a gram-positive cocci in both bottles. At this time I will repeat her blood cultures. I did start her on vancomycin IV yesterday per pharmacy dosing. Her chills are probably from this bacteremia and should improve as vancomycin is administered. I will continue to follow patient until sensitivities return. February 19, 2019-awaiting blood cultures second set. Continue vancomycin at this time. Await sensitivities February 20, 2019-blood cultures returned showing staph hominis that is sensitive to vancomycin. I DC'd Rocephin and azithromycin will continue vancomycin at this time. February 21, 2019-cultures showed staph hominis continue vancomycin. Patient to go to short-term rehab will continue vancomycin for a total of 10 days February 22, 2019 patient continues on vancomycin. Patient will go to short-term rehab continue vancomycin for total 10 days. February 23, 2019-patient continued on vancomycin at this time. (2) COPD with exacerbation Is this a current diagnosis for this admission?: Yes Plan: Patient has been started on bronchodilators and Solu-Medrol. February 17, 2019-patient continues on bronchodilators and Solu-Medrol. Lungs are clear but diminished. No adventitious breath sounds at this time. Patient with no complaints. February 18, 2019-improved. We will continue bronchodilators will DC IV Solu- Medrol placed patient on prednisone 60 mg p.o. daily February 19, 2019-improved. Continue bronchodilators and p.o. prednisone February 20, 2019-stable. Continue bronchodilators and p.o. prednisone. February 21, 2019-continue bronchodilators p.o. prednisone. Will decrease prednisone to 40 mill grams p.o. daily February 22, 2019-stable continue bronchodilators and p.o. prednisone (3) Hypertension Qualifiers: Hypertension type: essential hypertension Qualified Code(s): I10 - Essential (primary) hypertension Is this a current diagnosis for this admission?: Yes Plan: Continue home medication February 17, 2019-chronic stable. Continue home medications this time. February 18, 2019-chronic but stable. February 19, 2019-chronic, stable February 20, 2019-chronic stable February 21, 2019 stable February 22, 2019-stable February 23, 2019-stable (4) Hyperlipidemia Qualifiers: Hyperlipidemia type: unspecified Qualified Code(s): E78.5 - Hyperlipidemia, unspecified Is this a current diagnosis for this admission?: Yes (5) Hypokalemia Is this a current diagnosis for this admission?: Yes (6) Hyperglycemia Is this a current diagnosis for this admission?: Yes Plan: February 18, 2019-stable. Suspect this most likely from steroids. DC IV steroids this time place patient on prednisone 60 mg p.o. daily. Continue to monitor February 19, 2019-stable. Most likely still from steroids but improving after patient was taken off of IV steroids. February 20, 2018-stable. Continue to follow February 21, 2019-stable continue to follow patient still taking steroids. Decrease steroids to 40 mill grams p.o. daily today February 22, 2019-stable February 23, 2019-stable (7) Acute and chronic respiratory failure with hypoxia Is this a current diagnosis for this admission?: Yes Plan: February 19, 2019 patient presented to the ER with acute on chronic hypoxic respiratory failure. Patient home with home O2 3 L nasal cannula in the field she was in the low 80s and required 100% nonrebreather. At this time patient is improved and is only requiring her home 3 L nasal cannula maintaining her sats in the mid 90s well. February 20, 2019-patient continues to show stable O2 sats on home dose of oxygen 3 L nasal cannula. Continue to monitor February 21, 2019-stable continue on O2 3 days nasal cannula February 22, 2019-stable continues on O2 3 L per nasal cannula February 2019-continue 3 L nasal cannula (8) Decreased mobility Is this a current diagnosis for this admission?: Yes Plan: February 21, 2019-have patient seen by physical therapy. Plan for discharge to short-term rehab. February 22, 2019-patient seen by physical therapy yesterday. Patient was able to walk with walker without problems and also set up in her chair for total of 2 hours. Patient will go for short-term rehab tomorrow February 23, 2019-patient continues to follow physical therapy. Setting her up for short-term rehab. - Time Time Spent with patient: 15-24 minutes - Inpatient Certification Based on my medical assessment, after consideration of the patient's comorbidities, presenting symptoms, or acuity I expect that the services needed warrant INPATIENT care.: Yes I certify that my determination is in accordance with my understanding of Medicare's requirements for reasonable and necessary INPATIENT services [42 CFR 412.3e].: Yes Medical Necessity: Other - Rehab
[2019-02-23] MEDS: PREDNISONE 20 MG TABLET PO SCH (09:45)
[2019-02-23] MEDS: HYDROCHLOROTHIAZIDE 12.5 MG TABLET PO SCH (09:45)
[2019-02-23] MEDS: ENOXAPARIN SODIUM INJ 40 MG/0.4 ML DISP.SYRIN SUBCUT SCH (09:45)
[2019-02-23] MEDS: VANCOMYCIN HCL 1,000 MG in DEXTROSE 5%-WATER 250 ML IV SCH ×2 (09:46→22:04)
[2019-02-23] MEDS: FAMOTIDINE 20 MG TABLET PO SCH ×2 (09:46→22:03)
[2019-02-23] MEDS: TIOTROPIUM BROMIDE DPI 5 CAP/KIT (18 MCG/CAP) IH SCH (09:46)
--- NOTE | 2019-02-23 16:07 | RADIOLOGY REPORT (SQ) ---
EXAM DESCRIPTION: PICC INSERTION; FLUORO/CV PLACEMENT; U/S GUIDE FOR VASCULAR ACCESS COMPLETED DATE/TIME: 02/23/2019 3:35 pm REASON FOR STUDY: iv ABX; IV ABX COMPARISON: None. FLUOROSCOPY TIME: 17 seconds. 1 images saved to PACS. TECHNIQUE: Fluoroscopic and ultrasound guided PICC placement. LIMITATIONS: None. PROCEDURE: After written consent and assessment were obtained, the patient was brought into the fluo roscopy room and placed supine on the table. Ultrasound evaluation of potential access sites were per formed. After successfully identifying a patent left basilic vein, the left arm was prepped and drape d in a sterile fashion along with the ultrasound probe. The entry site was anesthetized with 1% lidoc abdoul. A 21 gauge 7 cm needle was advanced through the skin and into the basilic vein under live ultra sound guidance. An ultrasound image was saved to PACS confirming access site. A .018 guide wire was then inserted through the needle and into the venous system. The needle was then removed and an 11 b lade scalpel was used to make a 1cm skin incision. A 5 fr peel-away sheath was advanced over the wir e and into the venous system. A measurement was then made using the existing wire and live fluoroscop ic guidance. The wire was then removed and trimmed. The PICC was advanced through the peel-away sheat h and into the venous system. The peel-away sheath was removed and the catheter was adhered to the pa tients arm with a stat lock. The catheter was then aspirated and flushed and a sterile bandage was pl aced over the access site. A fluoroscopic spot image was saved to PACS confirming the catheter tip w ithin the superior vena cava. IMPRESSION: SUCCESSFUL PLACEMENT OF A 5 FR DUAL LUMEN 41 CM PICC IN THE LEFT BASILIC VEIN. COMMENT: Patient medication list reviewed: Yes- Quality ID# [id number]:Eligible professional attests to doc umenting in the medical record they obtained, updated, or reviewed the patient's current medications. . Quality ID 145: Final reports for procedures using fluoroscopy that document radiation exposure misael brenda, or exposure time and number of fluorographic images (if radiation exposure indices are not avail able) Quality ID #76: The patient was prepped and draped using maximum sterile barrier technique including cap, mask, sterile gown, sterile gloves, a large sterile sheet, hand hygiene, and 2% Chlorhexidine fo r cutaneous antisepsis. When ultrasound is used, sterile ultrasound techniques are followed requiring sterile gel and sterile probes. TECHNICAL DOCUMENTATION: JOB ID: [id number] [employer]- All Rights Reserved rev-11/29 Reading location - IP/workstation name: [email or web address]
[2019-02-23] MEDS ORDERED: NORMAL SALINE 10 ML SDV (AFTER EACH USE) IV PRN (16:30)
[2019-02-23] MEDS: NORMAL SALINE 10 ML SDV (SCHEDULED) IV SCH (22:04)
[2019-02-24] MEDS: PROMETHAZINE HCL 25 MG TABLET PO PRN ×3 (06:42→20:16)
[2019-02-24] MEDS: OXYCODONE-ACETAMINOPHEN 5-325 MG TABLET PO PRN ×3 (06:42→20:16)
[2019-02-24] MEDS: INSULIN REG, HUMAN 100 UNIT/ML 3 ML VIAL (PYX) SUBCUT SCH ×4 (07:37→22:32)
[2019-02-24] MEDS: VANCOMYCIN HCL 1,000 MG in DEXTROSE 5%-WATER 250 ML IV SCH (09:59)
[2019-02-24] MEDS: HYDROCHLOROTHIAZIDE 12.5 MG TABLET PO SCH (10:00)
[2019-02-24] MEDS: PREDNISONE 20 MG TABLET PO SCH ×2 (10:01→17:16)
[2019-02-24] MEDS: FAMOTIDINE 20 MG TABLET PO SCH ×2 (10:01→22:28)
[2019-02-24] MEDS: ENOXAPARIN SODIUM INJ 40 MG/0.4 ML DISP.SYRIN SUBCUT SCH (10:01)
[2019-02-24] MEDS: NORMAL SALINE 10 ML SDV (SCHEDULED) IV SCH ×2 (10:02→22:32)
[2019-02-24] MEDS: TIOTROPIUM BROMIDE DPI 5 CAP/KIT (18 MCG/CAP) IH SCH (10:03)
--- NOTE | 2019-02-24 16:09 | Progress Note ---
Provider Note Provider Note: ID Consult Note Asked to review chart of Ms. Loli Taylor. Patient is not seen or examined. Reviewed VS, imaging reports, relevant provider notes and labs. Ms. Taylor is a 73 year old woman admitted on 02/16/19 to [facility] with increased SOB for 2 days prior to admission. She has PMH including COPD, chronic respiratory failure on home oxygen, HTN, HLD, and recent fall sustaining R tibial plateau fracture. EMS brought the patient to the hospital; found that her oxygen saturations were low before she was put on a NRB. She was tachycardic and tachypneic initially. The patient had no fever since admission. Her right knee was noted to be in an immobilizer, no cardiac murmurs were appreciated, and crackles as well as d ecreased breath sounds were noted on exam. A CTA of the chest performed on presentation did not show a PE; it did reveal some bibasilar consolidation R>L potentially compatible with pneumonia. Blood cultures were drawn when she presented, which grew one isolate (oxacillin susceptible) of Staphylococcus hominis in a bottle of one set and another isolate (oxacillin resistant) of Staphylococcus hominis from one bottle of another set, which was drawn off of a line that was placed. Azithromycin and ceftriaxone were started initally, then changed to vancomycin on 02/17/19 after the results were preliminarily reported for the blood cultures. Repeat blood cultures on 02/18 were negative. Per provider notes, the patient reported feeling much improved on 02/19/19 and has been stable since on 3L O2 with plans to go to a short-term rehab setting. Impression Interpretation of growth of coagulase-negative Staphylococci from blood cultures is not always straight forward, as these organisms are the most common blood culutre contaminants. These organisms are found ubiquitously on the skin and are generally of low virulence. However, sometimes they can cause clinical disease, such as when there is an indwelling foreign body (e.g. IV catheter associated bacteremia or lead vegetation related to a pacemaker or ICD or prosthetic valve endocarditis) on which these organisms can form biofilms. [place] valve endocarditis is uncommon with these organisms. To my knowledge the patient did not have such predisposing risk factors when she presented. Moreover, in true endovascular infections, all or most of the blood cultures obtained at diagnosis should be positive, signifying a sustained/continuous bacteremia. The growth of Staph hominis from more than one set on 02/16/19 certainly raises some concern, but looking at the susceptibility patterns - these are actually two different isolates, not repeated growth of the same isolate. The patient's presentation is explained by COPD exacerbation and pneumonia, and she improved with treatment aimed at this. The coag negative Staph does not appear to be clinically relevant. Recommendations Staphylococcus hominis pseudobacteremia or blood culture contamination is the most likely explanation for the blood culture growth based on the available information from chart review. Suggest discontinuing IV vancomycin. Daniel Hedrick MD [facility] Infectious Diseases pager [phone]
--- NOTE | 2019-02-24 16:38 | PDOC PROGRESS REPORT ---
Subjective Progress Note for:: 02/24/19 Subjective:: This is a 53-year-old female who was admitted for bilateral consolidated pneumonia and COPD exacerbation. Patient was started on IV antibiotics, breathing treatments and IV steroids. She did significantly improved. Her blood culture grew staph hominis and she was switched to IV vancomycin. She returned to her baseline. No acute event overnight. She denies acute complaints. She is currently saturating well on 2 L nasal cannula which is her home O2 requirement. She is going to [facility]. Awaiting for preauthorization/approval from insurance. Doubt that Staph hominis bacteremia is a true infection and may possibly be contamination. Will consult ID for fu rther recommendations. Reason For Visit: BILATERAL PNEUMONIA,COPD EXACERBATION Physical Exam Vital Signs: Temp Pulse Resp BP Pulse Ox 98.5 F 109 H 17 122/63 93 02/24/19 12:38 02/24/19 12:38 02/24/19 12:38 02/24/19 12:38 02/24/19 12:38 Intake & Output 02/23/19 02/24/19 02/25/19 06:59 06:59 06:59 Intake Total 2560 1435 250 Output Total 200 Balance 2560 1235 250 Weight 148 lb 12.992 oz 151 lb 0.266 oz General appearance: PRESENT: no acute distress, well-developed, well-nourished Head exam: PRESENT: atraumatic, normocephalic Eye exam: PRESENT: conjunctiva pink, EOMI, PERRLA. ABSENT: scleral icterus Ear exam: PRESENT: normal external ear exam Mouth exam: PRESENT: moist, tongue midline Neck exam: ABSENT: carotid bruit, JVD, lymphadenopathy, thyromegaly Respiratory exam: PRESENT: rhonchi. ABSENT: rales, wheezes Cardiovascular exam: PRESENT: RRR. ABSENT: diastolic murmur, rubs, systolic murmur Pulses: PRESENT: normal dorsalis pedis pul GI/Abdominal exam: PRESENT: normal bowel sounds, soft. ABSENT: distended, guarding, mass, organolmegaly, rebound, tenderness Rectal exam: PRESENT: deferred Extremities exam: PRESENT: full ROM. ABSENT: calf tenderness, clubbing, pedal edema Neurological exam: PRESENT: alert, awake, oriented to person, oriented to place, oriented to time, oriented to situation, CN II-XII grossly intact. ABSENT: motor sensory deficit Results Laboratory Results: 02/21/19 04:01 02/21/19 04:01 02/18/19 11:00 Blood Blood Culture - Final NO GROWTH IN 5 DAYS Impressions: Chest X-Ray 02/16/19 00:00 IMPRESSION: Cardiomegaly without pulmonary edema. There is limited opacification in the right base, pneumonia versus atelectasis. Subsegmental atelectasis in the left base. Chest/Abdomen CTA 02/16/19 11:55 IMPRESSION: Bibasilar consolidation worrisome for pneumonia. No gross CTA evidence of acute pulmonary emboli or thoracic aortic dissection Moderate-sized retrocardiac hiatal hernia. Reflux and aspiration pneumonia should be considered KUB X-Ray 02/22/19 00:00 IMPRESSION: NO RADIOGRAPHIC EVIDENCE FOR ACUTE ABDOMINAL DISEASE. PROMINENT S TOOL THROUGHOUT THE COLON CONSISTENT WITH CONSTIPATION. Guidance Fluoroscopy 02/23/19 00:00 IMPRESSION: SUCCESSFUL PLACEMENT OF A 5 FR DUAL LUMEN 41 CM PICC IN THE LEFT BASILIC VEIN. Interventional Vascular Procedure 02/23/19 00:00 IMPRESSION: SUCCESSFUL PLACEMENT OF A 5 FR DUAL LUMEN 41 CM PICC IN THE LEFT BASILIC VEIN. PICC Line Insertion 02/23/19 00:00 IMPRESSION: SUCCESSFUL PLACEMENT OF A 5 FR DUAL LUMEN 41 CM PICC IN THE LEFT BASILIC VEIN. Assessment and Plan - Diagnosis (1) Acute and chronic respiratory failure with hypoxia Is this a current diagnosis for this admission?: Yes Plan: Now saturating on 3 L of nasal cannula (home O2 requirement. (2) Bilateral pneumonia Is this a current diagnosis for this admission?: Yes Plan: She completed treatment with IV Rocephin and azithromycin. (3) COPD exacerbation Is this a current diagnosis for this admission?: Yes Plan: Resolved. Now on prednisone. Continue breathing treatments as needed. (4) Hyperlipidemia Qualifiers: Hyperlipidemia type: unspecified Qualified Code(s): E78.5 - Hyperlipidemia, unspecified Is this a current diagnosis for this admission?: Yes Plan: Resume statin. (5) Hypertension Qualifiers: Hypertension type: essential hypertension Qualified Code(s): I10 - Essential (primary) hypertension Is this a current diagnosis for this admission?: Yes Plan: Controlled. (6) Coag negative Staphylococcus bacteremia Is this a current diagnosis for this admission?: Yes Plan: Doubt that Staph hominis bacteremia is a true infection and may possibly be contamination. Will consult ID for further recommendations. - Time Time Spent with patient: 25-34 minutes
[2019-02-24] MEDS ORDERED: ATORVASTATIN CALCIUM 10 MG TABLET PO SCH (22:00)
[2019-02-24] MEDS: ATORVASTATIN CALCIUM 10 MG TABLET PO SCH (22:28)
[2019-02-25] MEDS: INSULIN REG, HUMAN 100 UNIT/ML 3 ML VIAL (PYX) SUBCUT SCH ×4 (07:57→21:35)
[2019-02-25] MEDS: PROMETHAZINE HCL 25 MG TABLET PO PRN ×2 (08:31→20:37)
[2019-02-25] MEDS: OXYCODONE-ACETAMINOPHEN 5-325 MG TABLET PO PRN (08:31)
[2019-02-25] MEDS: HYDROCHLOROTHIAZIDE 12.5 MG TABLET PO SCH (09:12)
[2019-02-25] MEDS: PREDNISONE 20 MG TABLET PO SCH ×2 (09:12→17:08)
[2019-02-25] MEDS: FAMOTIDINE 20 MG TABLET PO SCH ×2 (09:12→21:35)
[2019-02-25] MEDS: NORMAL SALINE 10 ML SDV (SCHEDULED) IV SCH ×2 (09:13→21:35)
[2019-02-25] MEDS: ENOXAPARIN SODIUM INJ 40 MG/0.4 ML DISP.SYRIN SUBCUT SCH (09:14)
[2019-02-25] MEDS: TIOTROPIUM BROMIDE DPI 5 CAP/KIT (18 MCG/CAP) IH SCH (09:20)
[2019-02-25] MEDS ORDERED: (PENDING PHARMACY ID) (Lovastatin [Lovastatin] 40 MG) PO SCH (10:00)
--- NOTE | 2019-02-25 10:48 | PDOC TRANSFER SUMMARY ---
General - Admit/Disc Date/PCP Admission Date/Primary Care Provider: 02/16/19 15:02 MORRIS MONTENEGRO MD Discharge Date: 02/26/19 - Discharge Diagnosis (1) Acute and chronic respiratory failure with hypoxia Is this a current diagnosis for this admission?: Yes (2) Bilateral pneumonia Is this a current diagnosis for this admission?: Yes (3) COPD exacerbation Is this a current diagnosis for this admission?: Yes (4) Hyperlipidemia Is this a current diagnosis for this admission?: Yes (5) Hypertension Is this a current diagnosis for this admission?: Yes (6) Coag negative Staphylococcus bacteremia Is this a current diagnosis for this admission?: Yes - Additional Information Resuscitation Status: Full Code Prescriptions: Prednisone [Deltasone 10 mg Tablet] 10 mg PO BID 3 Days #6 tablet Home Medications: Hydrochlorothiazide 12.5 mg PO DAILY 09/04/16 Lovastatin 40 mg PO DAILY 09/04/16 Albuterol Sulfate [Ventolin Hfa] 2 puff IH Q4HP PRN #0 hfa.aer.[id number] 09/09/16 Albuterol Sulfate [Ventolin 0.083% Neb 2.5 mg/3 mL Ampul] 1 vial NEB TID 02/16/19 Fluticasone/Vilanterol [Breo 200-25 Mcg Ellipta 14 Dose/Dpi] 1 inh IH DAILY 02/16/19 Ibuprofen [Motrin Ib] 400 mg PO DAILYP PRN 02/16/19 Tiotropium Rock [Spiriva Respimat] 2 puff IH DAILY 02/16/19 Prednisone [Deltasone 10 mg Tablet] 10 mg PO BID 3 Days #6 tablet 02/25/19 History of Present Illness Admission Date/PCP: 02/16/19 15:02 MORRIS MONTENEGRO MD Patient complains of: SOB History of Present Illness: Admitting hospitalist's H&P: MELODY HAIRSTON is a 73 year old female patient with past medical history of chronic respiratory failure O2 dependent 04/02, COPD, hypertension, hyperlipidemia and recent fall sustaining right tibial plateau fracture presented with chief complaint of shortness of breath. Patient has underlying long-standing shortness of breath but the last 2 days her shortness of breath is severe and worse precipitated by mild exertion and failed to respond to her usual breathing treatment and oxygen. Her blood work shows mild leukocytosis of 12,000. Since she has history of recent leg fracture to the ER attending suspected PE and she has CT of the chest which is reported negative for PE but she has bibasilar consolidation worrisome for pneumonia. Patient denies any chills, fever, chest pain, palpitation, diaphoresis, nausea, vomiting, abdominal pain or urinary complaints. Hospital Course Hospital Course: This is a 53-year-old female with a H chronic respiratory failure O2 dependent, COPD, hypertension, and hyperlipidemia who was admitted for bilateral consolidated pneumonia and COPD exacerbation. Patient was started on IV an tibiotics, breathing treatments and IV steroids. She did significantly improve. Her blood culture grew staph hominis and she was started on IV vancomycin. She returned to her baseline. Doubt that Staph hominis bacteremia is a true infection and may possibly be contamination. ID was consulted and S. hominis bacteremia was deemed as contamination and vancomycin was discontinued. Physical Exam Vital Signs: Temp Pulse Resp BP Pulse Ox 98.2 F 99 12 140/75 H 93 02/25/19 07:25 02/25/19 07:25 02/25/19 07:25 02/25/19 07:25 02/25/19 07:25 Intake & Output 02/24/19 02/25/19 02/26/19 06:59 06:59 06:59 Intake Total 1435 1830 Output Total 200 1000 Balance 1235 830 Weight 151 lb 0.266 oz 151 lb 0.266 oz General appearance: PRESENT: no acute distress, well-developed, well-nourished Head exam: PRESENT: atraumatic, normocephalic Eye exam: PRESENT: conjunctiva pink, EOMI, PERRLA. ABSENT: scleral icterus Ear exam: PRESENT: normal external ear exam Mouth exam: PRESENT: moist, tongue midline Neck exam: ABSENT: carotid bruit, JVD, lymphadenopathy, thyromegaly Respiratory exam: PRESENT: clear to auscultation douglas. ABSENT: rales, rhonchi, wheezes Cardiovascular exam: PRESENT: RRR. ABSENT: diastolic murmur, rubs, systolic murmur Pulses: PRESENT: normal dorsalis pedis pul GI/Abdominal exam: PRESENT: normal bowel sounds, soft. ABSENT: distended, guarding, mass, organolmegaly, rebound, tenderness Rectal exam: PRESENT: deferred Extremities exam: PRESENT: full ROM. ABSENT: calf tenderness, clubbing, pedal edema Neurological exam: PRESENT: alert, awake, oriented to person, oriented to place, oriented to time, oriented to situation, CN II-XII grossly intact. ABSENT: motor sensory deficit Results Laboratory Results: 02/21/19 04:01 02/21/19 04:01 Impressions: Chest X-Ray 02/16/19 00:00 IMPRESSION: Cardiomegaly without pulmonary edema. There is limited opacification in the right base, pneumonia versus atelectasis. Subsegmental atelectasis in the left base. Chest/Abdomen CTA 02/16/19 11:55 IMPRESSION: Bibasilar consolidation worrisome for pneumonia. No gross CTA evidence of acute pulmonary emboli or thoracic aortic dissection Moderate-sized retrocardiac hiatal hernia. Reflux and aspiration pneumonia should be considered KUB X-Ray 02/22/19 00:00 IMPRESSION: NO RADIOGRAPHIC EVIDENCE FOR ACUTE ABDOMINAL DISEASE. PROMINENT STOOL THROUGHOUT THE COLON CONSISTENT WITH CONSTIPATION. Guidance Fluoroscopy 02/23/19 00:00 IMPRESSION: SUCCESSFUL PLACEMENT OF A 5 FR DUAL LUMEN 41 CM PICC IN THE LEFT BASILIC VEIN. Interventional Vascular Procedure 02/23/19 00:00 IMPRESSION: SUCCESSFUL PLACEMENT OF A 5 FR DUAL LUMEN 41 CM PICC IN THE LEFT BASILIC VEIN. PICC Line Insertion 02/23/19 00:00 IMPRESSION: SUCCESSFUL PLACEMENT OF A 5 FR DUAL LUMEN 41 CM PICC IN THE LEFT BASILIC VEIN. Qualifiers - * PATIENT BEING DISCHARGED WITH ANY OF THE FOLLOWING DIAGNOSIS: No Acute Heart Failure - Is this a Heart Failure Patient?: No LVEF < 40%?: No- if no continue to question #3 3. Anticoagulant therapy for permanect/persistent/paraoxysmal Afib or Aflutter: N/A
[2019-02-25 11:30] LABS: ANION GAP 5 (5-19); BLOOD UREA NITROGEN 19 mg/dL (7-20); CALCIUM 9.3 mg/dL (8.4-10.2); CARBON DIOXIDE 36 mmol/L (22-30); CHLORIDE 91 mmol/L (98-107); GLUCOSE 106 mg/dL (75-110); POTASSIUM 3.7 mmol/L (3.6-5.0)
[2019-02-25] MEDS: IBUPROFEN 400 MG TABLET PO PRN ×2 (14:30→20:37)
[2019-02-25] MEDS: ATORVASTATIN CALCIUM 10 MG TABLET PO SCH (21:35)
[2019-02-26] MEDS: INSULIN REG, HUMAN 100 UNIT/ML 3 ML VIAL (PYX) SUBCUT SCH ×3 (07:46→16:09)
[2019-02-26] MEDS: FAMOTIDINE 20 MG TABLET PO SCH (09:23)
[2019-02-26] MEDS: IBUPROFEN 400 MG TABLET PO PRN (09:23)
[2019-02-26] MEDS: PREDNISONE 20 MG TABLET PO SCH (09:24)
[2019-02-26] MEDS: HYDROCHLOROTHIAZIDE 12.5 MG TABLET PO SCH (09:24)
[2019-02-26] MEDS: TIOTROPIUM BROMIDE DPI 5 CAP/KIT (18 MCG/CAP) IH SCH (09:25)
[2019-02-26] MEDS: ENOXAPARIN SODIUM INJ 40 MG/0.4 ML DISP.SYRIN SUBCUT SCH (09:29)
[2019-02-26] MEDS: NORMAL SALINE 10 ML SDV (SCHEDULED) IV SCH (09:30)
--- NOTE | 2019-02-26 13:19 | Progress Note ---
Provider Note Provider Note: Patient's discharge was deferred last night due to pending final insurance approval. No acute event overnight. She denies any acute complaints. Assessment and plan remain unchanged. We will proceed with discharge to [place] today.
[2019-02-26 14:04] VITALS: BP 123/73
== END 2019-02-26 17:09 | DRG 193 ==
LOC: ER 10:52 → EH 15:02 → 4N 16:41
PROVIDERS: ADMIT Internal Medicine; ATTEND Internal Medicine
PROC: 02HV33Z Insertion of Infusion Device into Superior Vena Cava, Percutaneous Approach (ICD-10-PCS; principal; 2019-02-23)
PROC: B518ZZA Fluoroscopy of Superior Vena Cava, Guidance (ICD-10-PCS; 2019-02-23)
PROC: B548ZZA Ultrasonography of Superior Vena Cava, Guidance (ICD-10-PCS; 2019-02-23)
DX: J18.9 Pneumonia, unspecified organism (principal); J96.21 Acute and chronic respiratory failure with hypoxia; J44.0 Chronic obstructive pulmonary disease with (acute) lower respiratory infection; J44.1 Chronic obstructive pulmonary disease with (acute) exacerbation; N39.0 Urinary tract infection, site not specified; Z99.81 Dependence on supplemental oxygen; Z87.891 Personal history of nicotine dependence; Z79.51 Long term (current) use of inhaled steroids; S82.141D Displaced bicondylar fracture of right tibia, subsequent encounter for closed fracture with routine healing; Z88.8 Allergy status to other drugs, medicaments and biological substances; I10 Essential (primary) hypertension; E78.5 Hyperlipidemia, unspecified; W19.XXXD Unspecified fall, subsequent encounter; M19.90 Unspecified osteoarthritis, unspecified site; Z90.710 Acquired absence of both cervix and uterus; Z79.899 Other long term (current) drug therapy; E87.6 Hypokalemia; T38.0X5A Adverse effect of glucocorticoids and synthetic analogues, initial encounter; R73.9 Hyperglycemia, unspecified; D72.829 Elevated white blood cell count, unspecified
CPT/HCPCS: 36415; 36569; 71045; 71275; 74018; 76937; 77001; 80048; 80053; 80202; 81001; 82803; 82962; 83605; 85025; 85027; 85610; 87040; 87077; 87086; 87088; 87186; 87250; 93005; 93010; 94640; 96374; 96375; 99285; J0456; J0696; J1642; J1650; J1815; J2920; J2930; J3370; J3490; J7060; J7512; J7620

== ENCOUNTER → 2019-05-11 | Outpatient (CLI) | payer MEDICARE, MEDICAID ==
--- NOTE | 2019-05-11 10:23 | EKG REPORT ---
SEVERITY:- BORDERLINE ECG - SINUS RHYTHM PROBABLE LEFT ATRIAL ABNORMALITY : Confirmed by: Leo Renee MD 11-May-2019 10:22:58
[2019-05-11 10:55] LABS: ABSOLUTE BASOPHILS # (AUTO) 0.1 10^3/uL (0.0-0.2); ABSOLUTE EOSINOPHILS # (AUTO) 0.1 10^3/uL (0.0-0.6); ABSOLUTE LYMPHOCYTES (AUTO) 1.6 10^3/uL (0.5-4.7); ABSOLUTE MONOCYTES (AUTO) 0.4 10^3/uL (0.1-1.4); ABSOLUTE NEUT (AUTO) 3.2 10^3/uL (1.7-8.2); EOSINOPHILS % (AUTO) 1.3 % (0-6); LYMPHOCYTES % (AUTO) 30.3 % (13-45); MEAN CORPUSCULAR HGB CONC 32.6 g/dL (32.0-36.0); MEAN CORPUSCULAR VOLUME 86 fl (80-97); PLATELET COUNT 269 10^3/uL (150-450); RED CELL DISTRIBUTION WIDTH 14.9 % (11.5-14.0); SEGMENTED NEUTROPHILS % (AUTO) 59.4 % (42-78); TOTAL CELLS COUNTED % (AUTO) 100 %; WHITE BLOOD COUNT 5.4 10^3/uL (4.0-10.5)
[2019-05-11 11:19] LABS: ANION GAP 10 (5-19); BLOOD UREA NITROGEN 22 mg/dL (7-20); CALCIUM 10.1 mg/dL (8.4-10.2); CARBON DIOXIDE 30 mmol/L (22-30); CHLORIDE 97 mmol/L (98-107); GLUCOSE 95 mg/dL (75-110); POTASSIUM 3.9 mmol/L (3.6-5.0)
--- NOTE | 2019-05-11 13:42 | RADIOLOGY REPORT (SQ) ---
EXAM DESCRIPTION: CHEST PA/LATERAL COMPLETED DATE/TIME: 05/11/2019 10:30 am REASON FOR STUDY: PRE-OP COMPARISON: None. EXAM PARAMETERS: NUMBER OF VIEWS: two views TECHNIQUE: Digital Frontal and Lateral radiographic views of the chest acquired. RADIATION DOSE: NA LIMITATIONS: none FINDINGS: LUNGS AND PLEURA: Unchanged findings of COPD with chronic biapical and bibasilar scarring. There is no superimposed consolidation, pleural effusion or pneumothorax. MEDIASTINUM AND HILAR STRUCTURES: No mediastinal hilar or contour abnormality. HEART AND VASCULAR STRUCTURES: The cardiac silhouette and pulmonary vasculature within normal limits given the low inspiratory lung volumes BONES: No acute findings. HARDWARE: None in the chest. OTHER: No other finding. IMPRESSION: No acute cardiopulmonary process. TECHNICAL DOCUMENTATION: JOB ID: [id number] [employer]- All Rights Reserved Reading location - IP/workstation name: [email or web address]
== END ==
LOC: OD 10:00
PROVIDERS: ATTEND Orthopaedic Surgery
DX: Z01.812 Encounter for preprocedural laboratory examination (principal); Z01.810 Encounter for preprocedural cardiovascular examination; Z01.811 Encounter for preprocedural respiratory examination; M17.11 Unilateral primary osteoarthritis, right knee; I10 Essential (primary) hypertension
CPT/HCPCS: 36415; 71046; 80048; 85025; 93005; 93010

== ENCOUNTER → 2019-05-21 | Outpatient (CLI) | payer MEDICARE, MEDICAID ==
--- NOTE | 2019-05-21 13:02 | RADIOLOGY REPORT (SQ) ---
EXAM DESCRIPTION: CT CHEST WITHOUT COMPLETED DATE/TIME: 05/21/2019 10:33 am REASON FOR STUDY: R91.1 SOLITARY PULMONARY NODULE R91.1 SOLITARY PULMONARY NODULE COMPARISON: 02/16/2019 TECHNIQUE: CT scan performed of the chest without intravenous contrast. Images reviewed with lung, soft tissue and bone windows. Reconstructed coronal and sagittal MPR images reviewed. All images st ored on PACS. All CT scanners at this facility use dose modulation, iterative reconstruction, and/or weight based d osing when appropriate to reduce radiation dose to as low as reasonably achievable (ALARA). [facility]: Dose Right [facility]: CareDose [facility]: Dose Right [facility]: Teradose 4D [facility]: [employer] RADIATION DOSE: CT Rad equipment meets quality standard of care and radiation dose reduction techniq ues were employed. CTDIvol: 4.7 mGy. DLP: 165 mGy-cm. mGy. LIMITATIONS: No technical limitations. FINDINGS: LUNGS AND PLEURA: Moderate emphysema. Bandlike areas of scarring in the lingula, right lo wer lobe and middle lobe. No developing nodules or infiltrate. HILAR AND MEDIASTINAL STRUCTURES: Stable pretracheal node measuring 1 cm in short axis, likely reacti ve. No bulky adenopathy. HEART AND VASCULAR STRUCTURES: No aneurysm. No pericardial effusion. UPPER ABDOMEN: Hiatal hernia. THYROID AND OTHER SOFT TISSUES: No masses. No adenopathy. BONES: Nothing acute. HARDWARE: None in the chest. OTHER: No other significant findings. IMPRESSION: Emphysema. Stable areas of scarring. No developing nodules or infiltrate. TECHNICAL DOCUMENTATION: JOB ID: [id number] Quality ID # [id number]: Final reports with documentation of one or more dose reduction techniques (e.g., Au tomated exposure control, adjustment of the mA and/or kV according to patient size, use of iterative reconstruction technique) 2010 [employer]- All Rights Reserved Reading location - IP/workstation name: [email or web address]
== END ==
LOC: RAD 10:05
PROVIDERS: ATTEND Internal Medicine Critical Care Medicine
DX: J43.9 Emphysema, unspecified (principal); R91.1 Solitary pulmonary nodule; R91.8 Other nonspecific abnormal finding of lung field
CPT/HCPCS: 71250

== ENCOUNTER 2019-05-25 11:22 | Inpatient (IN) | payer MEDICARE, MEDICAID ==
[2019-06-01] MEDS ORDERED: LACTATED RINGERS 1000 ML IV PRN (05:00)
[2019-06-01] MEDS ORDERED: CEFAZOLIN INJ 1 GM VIAL IV PRN (05:00)
[2019-06-01] MEDS ORDERED: BUPIVACAINE INJ/PF LIPOSOME/PF 266 MG/20 ML SDV INJ PRN (05:00)
[2019-06-01] MEDS ORDERED: LIDOCAINE 0.5% INJ-PF (5 MG/ML) 50 ML SDV SUBCUT PRN (05:00)
[2019-06-01] MEDS ORDERED: IBUPROFEN 800 MG in NORMAL SALINE 250 ML IV PRN (05:00)
[2019-06-01] MEDS ORDERED: OXYCODONE HCL SR 10 MG TABLET PO PRN (05:00)
[2019-06-01] MEDS ORDERED: PANTOPRAZOLE SODIUM 20 MG TABLET.DR PO PRN (05:00)
[2019-06-01] MEDS ORDERED: VANCOMYCIN HCL 1,000 MG in DEXTROSE 5%-WATER 250 ML IV PRN (05:00)
[2019-06-01] MEDS ORDERED: ONDANSETRON HCL INJ/PF 4 MG/2 ML SDV ONE (08:39)
[2019-06-01] MEDS ORDERED: OXYCODONE HCL SR 10 MG TABLET PO ONE ×2 (08:39→09:04)
[2019-06-01] MEDS ORDERED: PANTOPRAZOLE SODIUM 20 MG TABLET.DR PO ONE (08:39)
[2019-06-01] MEDS ORDERED: SCOPOLAMINE HYDROBROMIDE 1.5 MG PATCH.TD72 ONE (08:39)
[2019-06-01] MEDS ORDERED: CEFAZOLIN INJ 1 GM VIAL ONE (08:56)
[2019-06-01] MEDS ORDERED: MIDAZOLAM 2 MG/2 ML INJ ONE (09:55)
[2019-06-01] MEDS ORDERED: FENTANYL CITRATE INJ/PF 100 MCG/2 ML AMPUL ONE (09:55)
[2019-06-01] MEDS ORDERED: TRANEXAMIC ACID INJ/PF 1,000 MG/10 ML SDV ONE (09:55)
[2019-06-01] MEDS ORDERED: PROPOFOL INJ 200 MG/20 ML VIAL IV ONE (09:56)
[2019-06-01] MEDS ORDERED: MEPERIDINE HCL/PF INJ 25 MG/1 ML DISP.SYRIN IV PRN (11:12)
[2019-06-01] MEDS ORDERED: DIPHENHYDRAMINE HCL 50 MG/ML VIAL IV PRN ×2 (11:12→11:41)
[2019-06-01] MEDS ORDERED: PROMETHAZINE HCL INJ 25 MG/1 ML VIAL IV PRN ×2 (11:12→15:50)
[2019-06-01] MEDS ORDERED: MORPHINE SULFATE 10 MG/ML INJ IV PRN (11:12)
[2019-06-01] MEDS ORDERED: ONDANSETRON HCL INJ/PF 4 MG/2 ML SDV IV PRN (11:12)
[2019-06-01] MEDS ORDERED: FENTANYL CITRATE INJ/PF 100 MCG/2 ML AMPUL IV PRN ×3 (11:12)
[2019-06-01] MEDS ORDERED: MAG HYDROX/AL HYDROX/SIMETH SUSP 30 ML UDCUP PO PRN (11:41)
[2019-06-01] MEDS ORDERED: ZOLPIDEM TARTRATE 5 MG TABLET PO PRN (11:41)
[2019-06-01] MEDS ORDERED: ONDANSETRON 4 MG TAB.RAPDIS PO PRN (11:41)
--- NOTE | 2019-06-01 11:48 | Operative Report ---
Operative Report DATE OF SURGERY: 06/01/19 PREOPERATIVE DIAGNOSIS: Posttraumatic right knee arthritis OPERATION: Right knee arthroplasty SURGEON: MARGARITA MEADOWS ANESTHESIA: GA TISSUE REMOVED OR ALTERED: Bone to pathology ESTIMATED BLOOD LOSS: 75 PROCEDURE: Implants used: Femur: Joaquin triathlon size 5 CR femur Tibia: 4 tibia, 12 mm x 50 mm stem Tibial liner: 9 mm CS insert Patella: 38 mm oval patella Preoperative skin preparation is not performed because Andres wipes are unavailable. Procedure with the patient supine on the operating table the right the limb is prepped and draped in a sterile fashion. The limb was elevated for exsanguination and the tourniquet inflated to 280 torr. A standard midline median parapatellar approach the knee is taken. Access is gained to the femoral canal through the intercondylar notch. Intramedullary alignment instrumentation used to resect 10 mm of distal femur in 5 of valgus. Sizing guide indicated a size 5 femur. Appropriate cutting jig is then used to fashion anterior posterior and chamfer cuts. A trial reduction femurs performed and this is judged to be adequate. Attention was next turned to the tibia. Using an extra medullary alignment system 9 millimeters was resected off the lateral tibial plateau. This is sized to a size 4 tibia. A trial reduction was now performed with a 5 femur and a 4 tibia using a 9 millimeters spacer. It is full extension and central patellofemoral tracking. The articular surface the patella was next resected using an oscillating saw. All trial implants were removed. Polymethylmethacrylate is mixed and used to cement the above implants in place. On adequate curing the cement excess cement was removed the tourniquet was deflated hemostasis obtained. Intraoperative hemostasis is limited by the absence of thrombin. Intraoperative analgesia is not injected because Marcaine with epinephrine is not available. The wound is then closed in layers using interrupted Vicryl followed by arsenio. A sterile compressive dressing was applied and the patient returned to recovery room in satisfactory condition.
--- NOTE | 2019-06-01 12:40 | RADIOLOGY REPORT (SQ) ---
EXAM DESCRIPTION: KNEE RIGHT 2 VIEWS COMPLETED DATE/TIME: 06/01/2019 12:25 pm REASON FOR STUDY: Post OP -Long Cassette in PACU M17.11 UNILATERAL PRIMARY OSTEOARTHRITIS, RIGHT KN EE COMPARISON: None. NUMBER OF VIEWS: Two views. TECHNIQUE: AP and lateral radiographic images acquired of the right knee. LIMITATIONS: None. FINDINGS: Postoperative images show a right knee arthroplasty in good position. IMPRESSION: Total knee arthroplasty. Refer to operative note for further information. TECHNICAL DOCUMENTATION: JOB ID: [id number] [employer]- All Rights Reserved Reading location - IP/workstation name: [email or web address]
[2019-06-01] MEDS: RINGERS SOLUTION,LACTATED 1,000 ML IV PRN ×2 (13:31→18:47)
[2019-06-01] MEDS: ONDANSETRON HCL INJ/PF 4 MG/2 ML SDV IV PRN (13:32)
[2019-06-01] MEDS: OXYCODONE HCL IR 5 MG TABLET PO PRN ×2 (13:39→20:13)
[2019-06-01] MEDS: ACETAMINOPHEN 325 MG TABLET PO PRN ×2 (14:42→18:43)
[2019-06-01] MEDS: SENNOSIDES/DOCUSATE 8.6-50 MG 1 EACH TABLET PO SCH (17:31)
[2019-06-01] MEDS: OXYCODONE HCL SR 10 MG TABLET PO SCH (22:00)
[2019-06-01] MEDS: ATORVASTATIN CALCIUM 10 MG TABLET PO SCH (22:01)
[2019-06-01] MEDS ORDERED: VANCOMYCIN HCL INJ 1000 MG VIAL ONE (23:40)
[2019-06-01] MEDS ORDERED: VANCOMYCIN HCL 1,000 MG in DEXTROSE 5%-WATER 250 ML IV ONE (23:41)
[2019-06-02] MEDS: OXYCODONE HCL IR 5 MG TABLET PO PRN ×2 (04:05→17:22)
[2019-06-02] MEDS: PANTOPRAZOLE SODIUM 40 MG TABLET.DR PO SCH (05:04)
[2019-06-02 05:13] LABS: HEMATOCRIT 29.7 % (36.0-47.0); MEAN CORPUSCULAR HEMOGLOBIN 28.6 pg (27.0-33.4); MEAN CORPUSCULAR HGB CONC 33.5 g/dL (32.0-36.0); MEAN CORPUSCULAR VOLUME 86 fl (80-97); PLATELET COUNT 182 10^3/uL (150-450); RED BLOOD COUNT 3.47 10^6/uL (3.72-5.28); RED CELL DISTRIBUTION WIDTH 14.8 % (11.5-14.0); WHITE BLOOD COUNT 8.8 10^3/uL (4.0-10.5)
[2019-06-02 05:34] LABS: ANION GAP 6 (5-19); BLOOD UREA NITROGEN 15 mg/dL (7-20); CALCIUM 9.1 mg/dL (8.4-10.2); CARBON DIOXIDE 32 mmol/L (22-30); CHLORIDE 99 mmol/L (98-107); GLUCOSE 121 mg/dL (75-110); POTASSIUM 3.3 mmol/L (3.6-5.0)
--- NOTE | 2019-06-02 07:10 | PDOC PROGRESS REPORT ---
Subjective Progress Note for:: 06/02/19 Reason For Visit: M17.11 UNILATERAL PRIMARY OSTEOARTHRITIS, RIGHT KN 73-year-old white female status post knee arthroplasty yesterday. Limited progress with physical therapy because of nausea. Nausea is resolved this morning. Physical Exam Vital Signs: Temp Pulse Resp BP Pulse Ox 37.1 C 105 H 16 118/51 L 92 06/02/19 00:00 06/02/19 00:00 06/02/19 00:00 06/02/19 00:00 06/02/19 00:00 Intake & Output 06/01/19 06/02/19 06/03/19 06:59 06:59 06:59 Intake Total 3340 Balance 3340 Weight 64.3 kg General appearance: PRESENT: no acute distress, mild distress Head exam: PRESENT: normocephalic Respiratory exam: PRESENT: unlabored Cardiovascular exam: PRESENT: RRR Vascular exam: PRESENT: normal capillary refill GI/Abdominal exam: PRESENT: soft Rectal exam: PRESENT: deferred Extremities exam: PRESENT: other - Right lower extremity dressing is clean dry and intact. Her distal neurovascular examination is intact. Results Laboratory Results: 06/02/19 04:20 06/02/19 04:20 06/01/19 06/02/19 06/02/19 08:40 04:20 04:20 WBC 8.8 RBC 3.47 L Hgb 10.0 L Hct 29.7 L MCV 86 MCH 28.6 MCHC 33.5 RDW 14.8 H Plt Count 182 Sodium 136.9 L Potassium 3.3 L 3.3 L Chloride 99 Carbon Dioxide 32 H Anion Gap 6 BUN 15 Creatinine 0.91 Est GFR ( Amer) > 60 Glucose 121 H Calcium 9.1 Impressions: Knee X-Ray 06/01/19 11:43 IMPRESSION: Total knee arthroplasty. Refer to operative note for further information. Status: Imported from PACS Assessment & Plan - Diagnosis (1) Arthritis of right knee Is this a current diagnosis for this admission?: Yes Plan: Mobilized with physical therapy today and weightbearing as tolerated basis. Anticipate discharge home tomorrow with home health services and DME. - Time Time Spent with patient: 15-24 minutes Anticipated discharge: Home with Homehealth Within: within 24 hours
[2019-06-02] MEDS ORDERED: (PENDING PHARMACY ID) (Esomeprazole Magnesium [Nexium] 20 MG) PO SCH (08:00)
[2019-06-02] MEDS ORDERED: (PENDING PHARMACY ID) (Tiotropium Bromide [Spiriva Respimat] 2 PUFF) IH SCH (10:00)
[2019-06-02] MEDS ORDERED: (PENDING PHARMACY ID) (Lovastatin [Lovastatin] 40 MG) PO SCH (10:00)
[2019-06-02] MEDS: HYDROCHLOROTHIAZIDE 12.5 MG TABLET PO SCH (10:11)
[2019-06-02] MEDS: SENNOSIDES/DOCUSATE 8.6-50 MG 1 EACH TABLET PO SCH ×2 (10:11→17:22)
[2019-06-02] MEDS: PRENATAL VITAMIN W DHA CAPSULE PO SCH (10:11)
[2019-06-02] MEDS: OXYCODONE HCL SR 10 MG TABLET PO SCH ×2 (10:12→22:09)
[2019-06-02] MEDS: FLUTICASONE/VILANTEROL 200-25 MCG/DOSE IH SCH (15:05)
[2019-06-02] MEDS: ACETAMINOPHEN 325 MG TABLET PO PRN (19:57)
[2019-06-02] MEDS: ATORVASTATIN CALCIUM 10 MG TABLET PO SCH (22:09)
[2019-06-03] MEDS: PANTOPRAZOLE SODIUM 40 MG TABLET.DR PO SCH (05:22)
[2019-06-03] MEDS: OXYCODONE HCL IR 5 MG TABLET PO PRN ×2 (05:29→22:08)
[2019-06-03] MEDS: ONDANSETRON HCL INJ/PF 4 MG/2 ML SDV IV PRN ×2 (06:34→22:11)
[2019-06-03 07:22] LABS: HEMATOCRIT 28.3 % (36.0-47.0); HEMOGLOBIN 9.6 g/dL (12.0-15.5); MEAN CORPUSCULAR HGB CONC 33.8 g/dL (32.0-36.0); MEAN CORPUSCULAR VOLUME 86 fl (80-97); PLATELET COUNT 145 10^3/uL (150-450); RED CELL DISTRIBUTION WIDTH 14.9 % (11.5-14.0); WHITE BLOOD COUNT 9.9 10^3/uL (4.0-10.5)
--- NOTE | 2019-06-03 08:54 | PDOC PROGRESS REPORT ---
Subjective Progress Note for:: 06/03/19 Reason For Visit: M17.11 UNILATERAL PRIMARY OSTEOARTHRITIS, RIGHT KN 73-year-old white female now postop day 2 status post right knee arthroplasty. Limited progress with physical therapy yesterday. Continue complaints of nausea. Physical Exam Vital Signs: Temp Pulse Resp BP Pulse Ox 37.6 C 108 H 20 93/52 L 90 L 06/03/19 07:34 06/03/19 07:34 06/03/19 07:34 06/03/19 07:34 06/03/19 07:34 Intake & Output 06/02/19 06/03/19 06/04/19 06:59 06:59 06:59 Intake Total 3340 1238 Output Total 0 Balance 3340 1238 Weight 64.3 kg 62.5 kg Physical Exam: Middle-aged white female sitting up in hospital bed in no clear distress. General appearance: PRESENT: mild distress Head exam: PRESENT: normocephalic Respiratory exam: PRESENT: unlabored Cardiovascular exam: PRESENT: RRR Pulses: PRESENT: +1 pedal pulses bilateral Vascular exam: PRESENT: normal capillary refill GI/Abdominal exam: PRESENT: soft Rectal exam: PRESENT: deferred Extremities exam: PRESENT: other - Right knee compressive dressing removed this morning. Underlying OpSite dressing is clean dry and intact. Neurological exam: PRESENT: alert, awake, oriented to person, oriented to place, oriented to time, oriented to situation. ABSENT: motor sensory deficit Psychiatric exam: PRESENT: appropriate affect, normal mood. ABSENT: homicidal ideation, suicidal ideation Skin exam: PRESENT: dry, intact, warm. ABSENT: cyanosis, rash Results Laboratory Results: 06/03/19 07:11 06/02/19 04:20 06/03/19 07:11 WBC 9.9 RBC 3.30 L Hgb 9.6 L Hct 28.3 L MCV 86 MCH 29.0 MCHC 33.8 RDW 14.9 H Plt Count 145 L Impressions: Knee X-Ray 06/01/19 11:43 IMPRESSION: Total knee arthroplasty. Refer to operative note for further information. Status: Imported from PACS Assessment & Plan - Diagnosis (1) Arthritis of right knee Is this a current diagnosis for this admission?: Yes Plan: Limited progress with physical therapy yesterday. We have begun discussions with the patient for [facility] discharge. Anticipate this will happen tomorrow pending bed availability. - Time Time Spent with patient: 15-24 minutes Anticipated discharge: SNF Within: within 24 hours
[2019-06-03] MEDS: SENNOSIDES/DOCUSATE 8.6-50 MG 1 EACH TABLET PO SCH ×2 (09:25→17:58)
[2019-06-03] MEDS: OXYCODONE HCL SR 10 MG TABLET PO SCH (09:26)
[2019-06-03] MEDS: FLUTICASONE/VILANTEROL 200-25 MCG/DOSE IH SCH (09:27)
[2019-06-03] MEDS: PRENATAL VITAMIN W DHA CAPSULE PO SCH (09:30)
[2019-06-03] MEDS: HYDROCHLOROTHIAZIDE 12.5 MG TABLET PO SCH (09:30)
[2019-06-03] MEDS: ATORVASTATIN CALCIUM 10 MG TABLET PO SCH (21:00)
[2019-06-04] MEDS: PANTOPRAZOLE SODIUM 40 MG TABLET.DR PO SCH (05:15)
[2019-06-04] MEDS: ACETAMINOPHEN 325 MG TABLET PO PRN ×3 (05:15→19:58)
[2019-06-04 05:57] LABS: HEMATOCRIT 28.2 % (36.0-47.0); HEMOGLOBIN 9.5 g/dL (12.0-15.5); MEAN CORPUSCULAR HEMOGLOBIN 28.9 pg (27.0-33.4); MEAN CORPUSCULAR HGB CONC 33.6 g/dL (32.0-36.0); MEAN CORPUSCULAR VOLUME 86 fl (80-97); PLATELET COUNT 143 10^3/uL (150-450); RED BLOOD COUNT 3.27 10^6/uL (3.72-5.28); WHITE BLOOD COUNT 9.5 10^3/uL (4.0-10.5)
--- NOTE | 2019-06-04 06:58 | PDOC TRANSFER SUMMARY ---
Impression - Admit/DC Date/PCP Admission Date/Primary Care Provider: 06/01/19 07:12 MORRIS MONTENEGRO MD Discharge Date: 06/04/19 - Discharge Diagnosis (1) Arthritis of right knee Is this a current diagnosis for this admission?: Yes - Additional Information Resuscitation Status: Full Code Discharge Diet: Regular Discharge Activity: Balance Activity w/Rest, No tub bath Referrals: MORIRS MONTENEGRO MD [Primary Care Provider] - Home Medications: Hydrochlorothiazide 12.5 mg PO DAILY 09/04/16 Lovastatin 40 mg PO DAILY 09/04/16 Fluticasone/Vilanterol [Breo 200-25 Mcg Ellipta 14 Dose/Dpi] 1 puff IH DAILY 02/16/19 Tiotropium [place] [Spiriva Respimat] 2 puff IH DAILY 02/16/19 Esomeprazole Magnesium [Nexium] 20 mg PO QAM 06/01/19 History of Present Illiness History of Present Illness: MELODY HAIRSTON is a 73 year old female Patient is a 73-year-old white female with progressive right knee pain and functional disability second osteoarthritis. Patient is admitted for elective right knee arthroplasty. Hospital Course Hospital Course: Patient is admitted through the operating where she undergoes an uncomplicated right knee arthroplasty. She was returned to floor in satisfactory condition. Initially there is some problems with nausea but these resolve over the first 24 to 36 hours. Patient makes fairly limited progress with physical therapy in terms of ambulating 100 feet on the first postoperative day. Because of her social situation plan is for the patient to be discharged with detention facility. Physical Exam Vital Signs: Temp Pulse Resp BP Pulse Ox 36.9 C 101 H 20 105/58 L 93 06/04/19 00:38 06/04/19 00:38 06/04/19 00:38 06/04/19 00:38 06/04/19 00:38 Intake & Output 06/02/19 06/03/19 06/04/19 06:59 06:59 06:59 Intake Total 3340 1238 640 Output Total 0 Balance 3340 1238 640 Weight 64.3 kg 62.5 kg 63.9 kg General appearance: PRESENT: no acute distress, mild distress Head exam: PRESENT: normocephalic Respiratory exam: PRESENT: unlabored Pulses: PRESENT: +1 pedal pulses bilateral GI/Abdominal exam: PRESENT: soft Rectal exam: PRESENT: deferred Musculoskeletal exam: PRESENT: other - Right lower extremity dressings clean dry and intact. Minimal pedal edema. Distal neurovascular examination is intact. Neurological exam: PRESENT: alert, awake, oriented to person, oriented to place, oriented to time, oriented to situation. ABSENT: motor sensory deficit Psychiatric exam: PRESENT: appropriate affect, normal mood. ABSENT: homicidal ideation, suicidal ideation Skin exam: PRESENT: dry, intact, warm. ABSENT: cyanosis, rash Results Laboratory Results: WBC 9.5 10^3/uL (4.0-10.5) 06/04/19 05:10 RBC 3.27 10^6/uL (3.72-5.28) L 06/04/19 05:10 Hgb 9.5 g/dL (12.0-15.5) L 06/04/19 05:10 Hct 28.2 % (36.0-47.0) L 06/04/19 05:10 MCV 86 fl (80-97) 06/04/19 05:10 MCH 28.9 pg (27.0-33.4) 06/04/19 05:10 MCHC 33.6 g/dL (32.0-36.0) 06/04/19 05:10 RDW 15.0 % (11.5-14.0) H 06/04/19 05:10 Plt Count 143 10^3/uL (150-450) L 06/04/19 05:10 Sodium 136.9 mmol/L (137-145) L 06/02/19 04:20 Potassium 3.3 mmol/L (3.6-5.0) L 06/02/19 04:20 Chloride 99 mmol/L (98-107) 06/02/19 04:20 Carbon Dioxide 32 mmol/L (22-30) H 06/02/19 04:20 Anion Gap 6 (5-19) 06/02/19 04:20 BUN 15 mg/dL (7-20) 06/02/19 04:20 Creatinine 0.91 mg/dL (0.52-1.25) 06/02/19 04:20 Est GFR ( Amer) > 60 (>60) 06/02/19 04:20 Est GFR (MDRD) Non-Af > 60 (>60) 06/02/19 04:20 Glucose 121 mg/dL (75-110) H 06/02/19 04:20 Calcium 9.1 mg/dL (8.4-10.2) 06/02/19 04:20 Impressions: Knee X-Ray 06/01/19 11:43 IMPRESSION: Total knee arthroplasty. Refer to operative note for further information. Plan Plan of Treatment: Patient to be discharged with detention facility for ongoing physical therapy for weightbearing as tolerated ambulation and for detention to address the right knee wound. Follow-up with Dr. Branch and [facility] for surgery in 2 weeks for staple removal. Stroke Is this a Stroke Patient?: No Stroke Pt being discharged on Anti-thrombolytic therapy?: Yes Acute Heart Failure - Is this a Heart Failure Patient?: No
[2019-06-04] MEDS: HYDROCHLOROTHIAZIDE 12.5 MG TABLET PO SCH (09:05)
[2019-06-04] MEDS: PRENATAL VITAMIN W DHA CAPSULE PO SCH (09:05)
[2019-06-04] MEDS: SENNOSIDES/DOCUSATE 8.6-50 MG 1 EACH TABLET PO SCH ×2 (09:05→17:03)
[2019-06-04] MEDS: FLUTICASONE/VILANTEROL 200-25 MCG/DOSE IH SCH (09:05)
[2019-06-04] MEDS: ATORVASTATIN CALCIUM 10 MG TABLET PO SCH (21:19)
[2019-06-05] MEDS: ACETAMINOPHEN 325 MG TABLET PO PRN ×2 (03:41→12:40)
[2019-06-05] MEDS: PANTOPRAZOLE SODIUM 40 MG TABLET.DR PO SCH (05:13)
--- NOTE | 2019-06-05 06:51 | PDOC PROGRESS REPORT ---
Subjective Progress Note for:: 06/05/19 Reason For Visit: M17.11 UNILATERAL PRIMARY OSTEOARTHRITIS, RIGHT KN 73-year-old white female status post right knee arthroplasty awaiting half-way facility placement. Physical Exam Vital Signs: Temp Pulse Resp BP Pulse Ox 36.9 C 103 H 19 125/54 L 92 06/04/19 23:10 06/04/19 23:10 06/04/19 23:10 06/04/19 23:10 06/04/19 23:10 Intake & Output 06/03/19 06/04/19 06/05/19 06:59 06:59 06:59 Intake Total 1238 640 846 Output Total 0 Balance 1238 640 846 Weight 62.5 kg 63.9 kg 85.1 kg General appearance: PRESENT: no acute distress Respiratory exam: PRESENT: unlabored Cardiovascular exam: PRESENT: RRR Extremities exam: PRESENT: other - Right knee OpSite dressing remains clean dry and intact. Minimal pedal edema. Distal neurovascular examination is intact. Results Laboratory Results: 06/04/19 05:10 06/02/19 04:20 Impressions: Knee X-Ray 06/01/19 11:43 IMPRESSION: Total knee arthroplasty. Refer to operative note for further information. Assessment & Plan - Diagnosis (1) Arthritis of right knee Is this a current diagnosis for this admission?: Yes Plan: Physical therapy for range of motion weightbearing as tolerated by the patient's in the hospital. Anticipate transfer to a half-way facility once a bed has been procured. - Time Time Spent with patient: 15-24 minutes Anticipated discharge: SNF Within: when bed available
[2019-06-05] MEDS: HYDROCHLOROTHIAZIDE 12.5 MG TABLET PO SCH (10:13)
[2019-06-05] MEDS: FLUTICASONE/VILANTEROL 200-25 MCG/DOSE IH SCH (10:13)
[2019-06-05] MEDS: SENNOSIDES/DOCUSATE 8.6-50 MG 1 EACH TABLET PO SCH (10:13)
[2019-06-05] MEDS: PRENATAL VITAMIN W DHA CAPSULE PO SCH (10:14)
[2019-06-05 16:28] VITALS: BP 102/53
== END 2019-06-05 17:10 | DRG 470 ==
LOC: INOR 06-01 07:12 → 4S 06-01 13:25
PROVIDERS: ADMIT Orthopaedic Surgery; ATTEND Orthopaedic Surgery
PROC: 0SRC0J9 Replacement of Right Knee Joint with Synthetic Substitute, Cemented, Open Approach (ICD-10-PCS; principal; 2019-06-01 10:00)
DX: M17.31 Unilateral post-traumatic osteoarthritis, right knee (principal); I10 Essential (primary) hypertension; J44.9 Chronic obstructive pulmonary disease, unspecified; E78.00 Pure hypercholesterolemia, unspecified; R11.0 Nausea; Z79.51 Long term (current) use of inhaled steroids
CPT/HCPCS: 01402; 36415; 80048; 84132; 85027; 88305; 88311; 94799; C1713; C1776; J0690; J1741; J2250; J2405; J2550; J2704; J3010; J3370; J3490; J7050; J7060; J7120